=== PATIENT | male | born 1960 | race Caucasian/White ===

== ENCOUNTER 2018-02-12 23:44 | Inpatient (IN) | payer OTHER ==
[~2018-02-12] VITALS: Ht 188 cm; Wt 64.0 kg
[2018-02-13] VITALS (7 sets, daily range): BP systolic 113–153; BP diastolic 65–94; PULSE 46–86; TEMP 36.6–37.6; O2SAT 94–99; Ht 188 cm; Wt 64.0 kg
--- NOTE | 2018-02-13 00:13 | EMERGENCY ROOM VISIT NOTE ---
History Report prepared by Bettie: Lynette Pena Under the Supervision of: Dr. Jessica Eric D.O. First contact with patient: 23:49 Chief Complaint: WOUND INFECTION Stated Complaint: ALTERED MENTAL STATUS/FINGER INFECTION History of Present Illness The patient is a 57 year old male who presents to the Emergency Room with complaints of a wound infection on the right third proximal finger beginning yesterday. He notes he got a splinter stuck in his finger and tried digging it out with a knife. When asked, the patient is unsure or why he is at the ED but knows the month and year. He is unsure who called EMS. He denies any abdominal pain, diarrhea, or urinary symptoms. The patient reports the last time he went to work was Tuesday. He states he drank 4 beers tonight, has COPD, and is a current smoker. Source of History: patient Onset: yesterday Position: finger(s) (right third proximal finger) Quality: other (wound infection) Timing: other (after getting a splinter stuck in finger) Associated Symptoms: No abdominal pain, No diarrhea, No urinary symptoms Review of Systems See HPI for pertinent positives & negatives. A total of 10 systems reviewed and were otherwise negative. Past Medical & Surgical Medical Problems: (1) Alcohol Abuse-Unspec (2) Depressive Disorder Nec (3) Seizure (4) Tobacco Use Disorder Family History Cancer Seizures Social History Smoking Status: Current Every Day Smoker Alcohol Use: occasionally Marital Status: Housing Status: lives with family Occupation Status: employed Current/Historical Medications No Active Prescriptions or Reported Meds Allergies Coded Allergies: Blueberry (Verified Allergy, Severe, HIVES, 02/13/18) Penicillins (Verified Allergy, Severe, ANAPHYLAXIS, 02/13/18) Aspirin (Verified Allergy, Unknown, ?, 02/13/18) Physical Exam Vital Signs Date Time Temp Pulse Resp B/P (MAP) Pulse Ox O2 Delivery O2 Flow Rate FiO2 02/13/18 00:21 Room Air 02/12/18 23:54 63 02/12/18 23:51 36.9 59 23 151/86 95 Room Air Physical Exam General: Smells of alcohol and seems confused. HEENT: Head - normocephalic and atraumatic Pupils are equal, round, and reactive to light. Extraocular eye muscles are intact, and sclera are anicteric. Nose - moist nasal mucosa without discharge. Mouth - moist buccal mucosa. Oropharynx is nonerythematous and there is no tonsillar exudate or edema noted. Neck: Supple; no JVD, nuchal rigidity, cervical lymphadenopathy. Heart: Regular rate and rhythm. There is a normal S1 and S2 with no murmurs, clicks, or gallops appreciated. Lungs: Clear to auscultation bilaterally with no wheezes, rales, or rhonchi. Abdomen: Soft, completely nontender, nondistended, with good bowel sounds. There are no palpable pulsatile masses or hepatosplenomegaly. There is no guarding, rigidity, or rebound noted. Extremities: No evidence of cyanosis, clubbing, or edema. There are easily palpable peripheral pulses. Skin: warm and dry with good turgor and no rashes. On the right third proximal finger there is significant edema, erythema, and pus coming out of the wound. Multiple tattoos over entire body. Neuro: The patient is moving all 4 extremities. He will follow commands. He is alert and able to answer some questions. Medical Decision & Procedures ER Provider Diagnostic Interpretation: Radiology results as stated below per my review and the radiologist's interpretation: RIGHT HAND XRAY Edema noted over the third proximal metatarsal. No obvious foreign body identified. PORTABLE CHEST XRAY Unremarkable. No acute pulmonary pathology. CT HEAD No acute hemorrahe, hydrocephalus, or mass effect. Large volume cerumen eiwthin the external auditory canals bilaterally, blocking the lumen Radiologist: Peace Villalobos MD Laboratory Results 02/13/18 00:00 Red Blood Count 4.98, Mean Corpuscular Volume 87.8, Mean Corpuscular Hemoglobin 30.1, Mean Corpuscular Hemoglobin Concent 34.3, Mean Platelet Volume 10.2, Neutrophils (%) (Auto) 48.8, Lymphocytes (%) (Auto) 41.4, Monocytes (%) (Auto) 6.5, Eosinophils (%) (Auto) 2.8, Basophils (%) (Auto) 0.4, Neutrophils # (Auto) 3.98, Lymphocytes # (Auto) 3.38, Monocytes # (Auto) 0.53, Eosinophils # (Auto) 0.23, Basophils # (Auto) 0.03 02/13/18 00:00 Test 02/13/18 00:00 02/13/18 00:15 02/13/18 00:25 02/13/18 00:28 White Blood Count 8.16 K/uL (4.8-10.8) Red Blood Count 4.98 M/uL (4.7-6.1) Hemoglobin 15.0 g/dL (14.0-18.0) Hematocrit 43.7 % (42-52) Mean Corpuscular Volume 87.8 fL (80-100) Mean Corpuscular Hemoglobin 30.1 pg (25-34) Mean Corpuscular Hemoglobin Concent 34.3 g/dl (32-36) Platelet Count 190 K/uL (130-400) Mean Platelet Volume 10.2 fL (7.4-10.4) Neutrophils (%) (Auto) 48.8 % Lymphocytes (%) (Auto) 41.4 % Monocytes (%) (Auto) 6.5 % Eosinophils (%) (Auto) 2.8 % Basophils (%) (Auto) 0.4 % Neutrophils # (Auto) 3.98 K/uL (1.4-6.5) Lymphocytes # (Auto) 3.38 K/uL (1.2-3.4) Monocytes # (Auto) 0.53 K/uL (0.11-0.59) Eosinophils # (Auto) 0.23 K/uL (0-0.5) Basophils # (Auto) 0.03 K/uL (0-0.2) RDW Standard Deviation 47.5 fL (36.4-46.3) RDW Coefficient of Variation 14.8 % (11.5-14.5) Immature Granulocyte % (Auto) 0.1 % Immature Granulocyte # (Auto) 0.01 K/uL (0.00-0.02) Prothrombin Time 10.1 SECONDS (9.0-12.0) Prothromb Time International Ratio 1.0 (0.9-1.1) Activated Partial Thromboplast Time 27.5 SECONDS (21.0-31.0) Partial Thromboplastin Ratio 1.1 Anion Gap 8.0 mmol/L (3-11) Est Creatinine Clear Calc Drug Dose 86.9 ml/min Estimated GFR () 116.6 Estimated GFR (Non- 100.6 BUN/Creatinine Ratio 11.3 (10-20) Calcium Level 8.6 mg/dl (8.5-10.1) Total Bilirubin 0.2 mg/dl (0.2-1) Aspartate Amino Transf (AST/SGOT) 21 U/L (15-37) Alanine Aminotransferase (ALT/SGPT) 18 U/L (12-78) Alkaline Phosphatase 60 U/L (45-117) Total Protein 7.3 gm/dl (6.4-8.2) Albumin 3.6 gm/dl (3.4-5.0) Globulin 3.7 gm/dl (2.5-4.0) Albumin/Globulin Ratio 1.0 (0.9-2) Urine Color YELLOW Urine Appearance CLEAR (CLEAR) Urine pH 6.0 (4.5-7.5) Urine Specific [place] 1.007 (1.000-1.030) Urine Protein NEG (NEG) Urine Glucose (UA) NEG (NEG) Urine Ketones NEG (NEG) Urine Occult Blood 1+ (NEG) Urine Nitrite NEG (NEG) Urine Bilirubin NEG (NEG) Urine Urobilinogen NEG (NEG) Urine Leukocyte Esterase NEG (NEG) Urine WBC (Auto) 0 /hpf (0-5) Urine RBC (Auto) 0-4 /hpf (0-4) Urine Hyaline Casts (Auto) 0 /lpf (0-5) Urine Epithelial Cells (Auto) 0-5 /lpf (0-5) Urine Bacteria (Auto) NEG (NEG) Ethyl Alcohol mg/dL 103.0 mg/dl (0-3) Bedside Lactic Acid Venous 1.21 mmol/L (0.90-1.70) Laboratory results per my review. Medications Administered Medications (Trade) Dose Ordered Sig/Lindsay Route Start Time Stop Time Status Last Admin Dose Admin Daptomycin 400 mg/ Sodium Chloride 58 ml @ 100 mls/hr NOW STAT IV 02/13/18 00:22 02/13/18 00:56 DC 02/13/18 01:03 100 MLS/HR Procedure Daptomycin 400 mg/Sodium Chloride 58 ml @ 100 mls/hr IV ECG Per My Interpretation Indication: other (sepsis) Rate (beats per minute): 63 Rhythm: normal sinus Findings: no acute ischemic change, no ectopy, other (no ST segment changes) ED Course 4719: Past medical records reviewed. The patient was evaluated in room B9. A complete history and physical exam was performed. Nursing notes and previous electronic medical records were reviewed. IV lock was established and labs were drawn as above. A septic protocol was performed. The patient went for a plain film of the infected hand. 0022: Ordered Daptomycin 400 mg/Sodium Chloride 58 ml @ 100 mls/hr IV 0146: Discussed the patient's case with Abrahan Quiles. The patient will be evaluated for further management. 0212: The patient's family arrived in the emergency department. I spoke to the patient's at this time. She reports the patient had 4 seizures today before arriving at the ED and he was postictal afterwards. Medical Decision The patient is a 57 year old male who presents to the Emergency Room with complaints of a wound infection on the right third proximal finger beginning yesterday. Differential diagnosis includes sepsis, infected foreign body of the hand, alcohol intoxication, as well as others were entertained. Lab results show Alcohol 103 Urinalysis had 1+ blood Lactic acid 1.2 Normal renal function and glucose Normal coags and LFTs No leukocytosis Stable H and H This is a 57-year-old male patient presents to the emergency department complaining of hand pain and seemed to have an altered mental status. The patient has an obvious wound infection but no significant signs of sepsis. He is afebrile, white blood cell count is normal, and lactic acid was negative. The patient's mental status was altered upon his arrival here in the emergency department. According to the , the patient has a history of seizures and used to take Lamictal. She describes him having approximately 4 seizures before EMS arrived at the house. The patient was unable to fully bend his fingers on the infected hand. I am concerned about a more significant wound infection and retained foreign body. [facility] and [facility] will evaluate for further care and consult orthopedics. Medication Reconcilliation Current Medication List: was personally reviewed by me Consults Time Called: 139 Consulting Physician: Abrahan Quiles Returned Call: [phone] Discussed the patient's case with Abrahan Quiles. The patient will be evaluated for further management. Impression Primary Impression: Seizure Additional Impression: Puncture wound of right hand with infection Scribe Attestation The scribe's documentation has been prepared under my direction and personally reviewed by me in its entirety. I confirm that the note above accurately reflects all work, treatment, procedures, and medical decision making performed by me. Departure Information Dispostion Being Evaluated By Hospitalist (Dr. Rodriguez, [facility] Hospitalist) Prescriptions No Active Prescriptions or Reported Meds Referrals Chay Foster M.D. (PCP) Patient Instructions My [facility] Problem Qualifiers Additional Impression: Puncture wound of right hand with infection Encounter type: initial encounter Qualified Codes: S61.431A - Puncture wound without foreign body of right hand, initial encounter; L08.9 - Local infection of the skin and subcutaneous tissue, unspecified
[2018-02-13 00:18] LABS: BASO % 0.4 %; BASO ABS # 0.03 K/uL (0-0.2); EOS % 2.8 %; EOS ABS # 0.23 K/uL (0-0.5); HEMATOCRIT 43.7 % (42-52); IG# 0.01 K/uL (0.00-0.02); LYMPH % 41.4 %; LYMPH ABS # 3.38 K/uL (1.2-3.4); MEAN CELL VOLUME 87.8 fL (80-100); MEAN CORPUSCULAR HEMOGLOBIN 30.1 pg (25-34); MEAN CORPUSCULAR HGB CONC 34.3 g/dl (32-36); MEAN PLATELET VOLUME 10.2 fL (7.4-10.4); MONO % 6.5 %; MONO ABS # 0.53 K/uL (0.11-0.59); NEUT % 48.8 %; NEUT ABS # 3.98 K/uL (1.4-6.5); PLATELET COUNT 190 K/uL (130-400); RED CELL DISTRIBUTION WIDTH CV 14.8 % (11.5-14.5); RED CELL DISTRIBUTION WIDTH SD 47.5 fL (36.4-46.3); WHITE BLOOD COUNT 8.16 K/uL (4.8-10.8)
[2018-02-13] MEDS ORDERED: DAPTOmycin IV 400 MG in SODIUM CHLORIDE 0.9% 50ML 50 ML IV STA (00:22)
[2018-02-13 00:29] LABS: ALBUMIN 3.6 gm/dl (3.4-5.0); CALCIUM 8.6 mg/dl (8.5-10.1); CREATININE 0.8 mg/dl (0.60-1.40); POTASSIUM 3.5 mmol/L (3.5-5.1); TOTAL PROTEIN 7.3 gm/dl (6.4-8.2)
[2018-02-13 00:31] LABS: PTT PATIENT 27.5 SECONDS (21.0-31.0)
[2018-02-13] MEDS ORDERED: MULTI-VITAMIN INFUSION INJ 10 ML, THIAMINE HCL INJ 100 MG, FoLIC ACID INJ 1 MG in SODIU... IV ONE (02:09)
[2018-02-13] MEDS ORDERED: ALBUTEROL HFA 8 GM INHALER INH PRN (02:15)
[2018-02-13] MEDS ORDERED: ACETAMINOPHEN 325 MG TAB PO PRN (02:15)
[2018-02-13] MEDS ORDERED: VANCOMYCIN CONSULT ACTIVE PRN ×2 (02:15→16:45)
[2018-02-13] MEDS ORDERED: NITROGLYCERIN 0.4 MG SL PER TAB CHARGE SL PRN (02:15)
[2018-02-13] MEDS ORDERED: ALUMINUM/MAGNESIUM/SIMETH (MAALOX MAX) 30 ML UDC PO PRN (02:15)
[2018-02-13] MEDS ORDERED: ONDANSETRON INJ 2 MG/ML 2 ML VIAL IV PRN ×2 (02:15→16:30)
[2018-02-13] MEDS ORDERED: PIPERACILL/TAZOBAC CONSULT ACTIVE PRN (02:15)
[2018-02-13] MEDS ORDERED: LORAZEPAM 1 MG TAB PO PRN (02:15)
[2018-02-13] MEDS ORDERED: ALBUT/IPRATROP 3MG/0.5MG NEB 3 ML VIAL INH PRN (02:15)
[2018-02-13] MEDS ORDERED: POLYETHYLENE (MIRALAX) 17 GM PACK PO PRN (02:15)
[2018-02-13] MEDS ORDERED: LORAZEPAM 2 MG/ML 1 ML VIAL IV PRN ×3 (02:15→08:15)
[2018-02-13] MEDS: THIAMINE HCL INJ 100 MG in SYRINGE 9 ML IV SCH (03:42)
--- NOTE | 2018-02-13 03:45 | HISTORY & PHYSICAL EXAMINATION ---
DATE OF ADMISSION: 02/13/2018 CHIEF COMPLAINT: Right third finger infection. HISTORY OF PRESENT ILLNESS: This is a 57-year-old male with past medical history significant for alcoholism, tobacco abuse, history of questionable seizures and was on Lamictal in the past but no longer taking it for several years now, history of COPD, comes because of right third finger infection. The patient says he was cutting the tree about a week ago and he has got thorn into the finger and he tried to take it with his knife, but finger became swollen and painful. He went to [facility] yesterday but it was taking long time and he just singed out AMA . He says he drinks 1 six-pack beer every weekend, but alcohol level was 100 today when asked about it he said he drank about 4 beers today. Smokes 1 pack of cigarettes every day since age 14. Denies any headache. Denies any fever, chills, no headaches, no blurred vision, no dizziness, no earache, no runny nose, no sore throat, no cough, no difficulty swallowing. No chest pain, no shortness of breath, no fever, no nausea, no vomiting, no abdominal pain. Normal bowel and bladder movements. No blood in the urine, no bloody stools. No recent weight gain or weight loss. No skin rash, no lower extremity edema. But the states that he was confused today, he could not recognize his cat, could not know the time and somewhat disoriented and called ambulance. Before the ambulance came, he had several episodes of shaking his body and legs and staring which lasted for few seconds, currently the patient is alert and oriented and is comfortable and hemodynamically stable. ALLERGIES: ASPIRIN AND PENICILLIN. PAST MEDICAL HISTORY: As mentioned above. PAST SURGICAL HISTORY: Has right knee surgery. MEDICATIONS: Patient is not take any medications. FAMILY HISTORY: No family history is significant. REVIEW OF SYSTEMS: Rest of the review of symptoms negative. PHYSICAL EXAMINATION: GENERAL: The patient is of moderate build, not in distress. VITAL SIGNS: Temperature 36.9, pulse 63, respiratory rate 16 blood pressure 146/93, temperature 95% room air. HEENT: No pallor, no icterus. Pupils equal, round, reactive. NECK: No JVD or neck masses, no carotid bruits. CARDIOVASCULAR: S1, S2, regular rate and rhythm, no murmur, no gallop. RESPIRATORY SYSTEM: Normal AP diameter No accessory muscle use No wheezing, no crackles. ABDOMEN: Soft, bowel sounds present. Nontender. No distention. CENTRAL NERVOUS SYSTEM: Cranial II through XII intact. Nonfocal extremities. EXTREMITIES: Right middle finger is erythematous, swollen. No drainage is seen. No foul smelling LABS: WBC 8.1, hemoglobin 15, hematocrit 43.7, platelets 190. Sodium 142, potassium 3.6, chloride 107, bicarbonate 27, BUN 9, creatinine 0.8, serum glucose 75, calcium 8.6, total bilirubin 0.2, AST 21, ALT 18, alkaline phosphatase of 60. PT 10.1, INR 1, APTT 27.5. Urinalysis positive for occult blood alcohol 103. CT of the head unofficial report unremarkable. Chest x-ray, no acute disease in the chest. Right hand x-ray no obvious foreign body identified. Await for official report. ASSESSMENT AND PLAN: This is a 57-year-old male who presents with right middle finger infection. 1. Right middle finger infection .Had thron in his finger a week ago and he tried to take it out with knife No obvious foreign body in the x-ray unofficial report. We will place him IV vancomycin. Consult orthopedics for possible incision and drainage. We will monitor in the hospital. 2. Confusion, encephalopathy, questionable seizures. history of seizures in the past, was on Lamictal at the time and had EEG done a couple of times and it was negative . Thought to be from alcohol withdrawal but neurology advised to be on Lamictal. Patient says he stopped Lamictal several years ago. .We will get an EEG . IV Ativan p.r.n. for seizures and consult neurology in morning.Patient confusion also could be from alcoholism 3. Alcoholism. will place him on alcohol withdrawal protocol with gabapentin and Ativan as needed. Banana bag. Patient says he does not get withdrawal if he don't drink. 4. Tobacco abuse. We will need counseling. Nebs as needed. 5. Deep venous thrombosis prophylaxis, sequential compression devices for now. DISPOSITION: Admit to tele floor. Expect to discharge home and follow with family doctor. Level 1 full code. MTDD
[2018-02-13] MEDS ORDERED: VANCOMYCIN IV 1,500 MG in SODIUM CHLORIDE 0.9% 500ML 500 ML IV SCH (04:00)
[2018-02-13] MEDS ORDERED: GABAPENTIN 600 MG TAB PO SCH (04:00)
[2018-02-13] MEDS: NICOTINE 21 MG/24 HR TDSY TD SCH ×2 (04:39→08:23)
[2018-02-13] MEDS ORDERED: PNEUMOCOCCAL POLYSACCHARIDES 25 MCG/0.5 ML VIAL/SYR IM. ONE (04:45)
[2018-02-13] MEDS ORDERED: PNEUMOCOCCAL ADMINISTRATION CHARGE ONE (04:45)
--- NOTE | 2018-02-13 06:37 | DIAGNOSTIC IMAGING REPORT ---
HEAD WITHOUT CONTRAST (CT) CLINICAL HISTORY: 57 years-old Male with altered ms. Acutely altered mental status TECHNIQUE: Multiple axial CT images of the head were obtained without contrast. A dose lowering technique was utilized adhering to the principles of ALARA. CT DOSE: 614.27 mGy.cm COMPARISON: CT head 07/20/2009. FINDINGS: No acute intracranial hemorrhage, midline shift, intracranial mass, hydrocephalus, territorial ischemia or abnormal extra-axial collection. Senescent calcifications of the lentiform nuclei. The calvarium is intact. The paranasal sinuses, mastoid air cells, and middle ear cavities are clear. Cerumen of the bilateral external auditory canals. Rightward bowing and spurring of the nasal septum. Soft tissues and orbits are unremarkable. IMPRESSION: No acute intracranial abnormality. The above report was generated using voice recognition software. It may contain grammatical, syntax or spelling errors. Electronically signed by: Ventura Palma M.D. 02/13/2018 6:35 AM Dictated Date/Time: 02/13/2018 6:33 AM
--- NOTE | 2018-02-13 06:42 | DIAGNOSTIC IMAGING REPORT ---
R HAND MIN 3 VIEWS ROUTINE HISTORY: 57 years-old Male eval for foreign body in 3rd digit acute right hand pain with concern for foreign body COMPARISON: None available TECHNIQUE: 3 views of the right hand FINDINGS: There is a punctate radiopaque foreign body noted within the ulnar dorsal soft tissues of the third digit at the level of the mid proximal phalanx. Moderate associated soft tissue swelling. There is no acute fracture or dislocation. Mild first carpometacarpal osteoarthritis. Mild degenerative changes are seen within the interphalangeal joints. IMPRESSION: 1. No acute fracture. 2. Punctate foreign body noted within the ulnar dorsal soft tissues of the third digit at the level of the mid proximal phalanx. The above report was generated using voice recognition software. It may contain grammatical, syntax or spelling errors. Electronically signed by: Ventura Palma M.D. 02/13/2018 6:40 AM Dictated Date/Time: 02/13/2018 6:39 AM
--- NOTE | 2018-02-13 06:46 | DIAGNOSTIC IMAGING REPORT ---
CHEST ONE VIEW PORTABLE HISTORY: 57 years-old Male Sepsis acute sepsis COMPARISON: None available TECHNIQUE: Portable AP view of the chest FINDINGS: Cardiomediastinal and hilar silhouettes are within normal limits. Mild biapical pleural parenchymal scarring. Lungs are mildly hyperinflated. No pneumothorax, pleural effusion, focal airspace consolidation or overt pulmonary edema. Bones of the chest appear grossly intact. IMPRESSION: No acute process. The above report was generated using voice recognition software. It may contain grammatical, syntax or spelling errors. Electronically signed by: Ventura Palma M.D. 02/13/2018 6:44 AM Dictated Date/Time: 02/13/2018 6:43 AM
[2018-02-13] MEDS: SODIUM CHLORIDE 0.9% 1000ML 1,000 ML IV SCH ×2 (08:23→21:26)
[2018-02-13] MEDS: CEROVITE ADV FORMULA TAB PO SCH (08:23)
--- NOTE | 2018-02-13 08:44 | Progress Note ---
Medicine Progress Note Date & Time of Visit: Feb 13, 2018 at 08:35. Subjective seen resting in bed, comfortable states he feels improved compared to yesterday has some pain on the left finger- able to move other fingers, wrist, no arm pain denies tremors, anxiety, palpitations, hallucinations no seizure recurrence noted denies other symptoms Objective Last 8 Hrs Date Time Temp Pulse Resp B/P (MAP) Pulse Ox O2 Delivery O2 Flow Rate FiO2 02/13/18 07:43 36.9 86 20 139/76 (97) 99 02/13/18 04:30 Room Air 02/13/18 03:37 36.7 60 20 143/92 97 Room Air 02/13/18 02:51 36.7 68 18 146/93 97 02/13/18 02:20 36.7 68 18 146/93 97 Physical Exam: General- oriented x3, not in distress, speaks in sentences with no effort Head- atraumatic Eyes- PERRL, EOMI, anicteric ENT- oropharynx clear Neck- supple, no JVD, no adenopathy, no thyromegaly; carotids +2/2, no bruits appreciated Lungs- clear to auscultation bilaterally Heart- regular rhythm; no murmur,normal rate Abdomen- normal bowel sounds, soft, nontender Extremities- right middle finger: swelling and tenderness on the proximal phalanx region, no other erythema, swelling, tenderness on the right hand/arm poor ROM of R middle finger , otherwise full on the right hand no pretibial edema, no calf tenderness; peripheral pulses intact Neuro- alert, oriented x 3; no gross focal deficits Skin- warm & dry Laboratory Results: Last 24 Hours Test 02/13/18 00:00 02/13/18 00:15 02/13/18 00:25 02/13/18 00:28 White Blood Count 8.16 K/uL Red Blood Count 4.98 M/uL Hemoglobin 15.0 g/dL Hematocrit 43.7 % Mean Corpuscular Volume 87.8 fL Mean Corpuscular Hemoglobin 30.1 pg Mean Corpuscular Hemoglobin Concent 34.3 g/dl Platelet Count 190 K/uL Mean Platelet Volume 10.2 fL Neutrophils (%) (Auto) 48.8 % Lymphocytes (%) (Auto) 41.4 % Monocytes (%) (Auto) 6.5 % Eosinophils (%) (Auto) 2.8 % Basophils (%) (Auto) 0.4 % Neutrophils # (Auto) 3.98 K/uL Lymphocytes # (Auto) 3.38 K/uL Monocytes # (Auto) 0.53 K/uL Eosinophils # (Auto) 0.23 K/uL Basophils # (Auto) 0.03 K/uL RDW Standard Deviation 47.5 fL RDW Coefficient of Variation 14.8 % Immature Granulocyte % (Auto) 0.1 % Immature Granulocyte # (Auto) 0.01 K/uL Prothrombin Time 10.1 SECONDS Prothromb Time International Ratio 1.0 Activated Partial Thromboplast Time 27.5 SECONDS Partial Thromboplastin Ratio 1.1 Sodium Level 142 mmol/L Potassium Level 3.5 mmol/L Chloride Level 107 mmol/L Carbon Dioxide Level 27 mmol/L Anion Gap 8.0 mmol/L Blood Urea Nitrogen 9 mg/dl Creatinine 0.80 mg/dl Est Creatinine Clear Calc Drug Dose 86.9 ml/min Estimated GFR () 116.6 Estimated GFR (Non- 100.6 BUN/Creatinine Ratio 11.3 Random Glucose 75 mg/dl Calcium Level 8.6 mg/dl Total Bilirubin 0.2 mg/dl Aspartate Amino Transf (AST/SGOT) 21 U/L Alanine Aminotransferase (ALT/SGPT) 18 U/L Alkaline Phosphatase 60 U/L Total Protein 7.3 gm/dl Albumin 3.6 gm/dl Globulin 3.7 gm/dl Albumin/Globulin Ratio 1.0 Urine Color YELLOW Urine Appearance CLEAR Urine pH 6.0 Urine Specific [place] 1.007 Urine Protein NEG Urine Glucose (UA) NEG Urine Ketones NEG Urine Occult Blood 1+ Urine Nitrite NEG Urine Bilirubin NEG Urine Urobilinogen NEG Urine Leukocyte Esterase NEG Urine WBC (Auto) 0 /hpf Urine RBC (Auto) 0-4 /hpf Urine Hyaline Casts (Auto) 0 /lpf Urine Epithelial Cells (Auto) 0-5 /lpf Urine Bacteria (Auto) NEG Ethyl Alcohol mg/dL 103.0 mg/dl Bedside Lactic Acid Venous 1.21 mmol/L Test 02/13/18 05:53 Date/Time Source Procedure Growth Status 02/13/18 00:25 Blood Blood Culture Pending Received 02/12/18 23:58 Blood Blood Culture Pending Received Assessment & Plan ASSESSMENT AND PLAN: This is a 57-year-old male who presents with right middle finger infection. 1. Right middle finger Cellulitis, Foreign Body Had thorn in his finger a week ago and he tried to take it out with knife Hand xray: 1. No acute fracture. 2. Punctate foreign body noted within the ulnar dorsal soft tissues of the third digit at the level of the mid proximal phalanx. blood cultures pending continue Vanco IV Ortho consulted 2. Confusion, encephalopathy, questionable seizures. history of seizures in the past, was on Lamictal at the time and had EEG done a couple of times and it was negative . Thought to be from alcohol withdrawal but neurology advised to be on Lamictal. Patient says he stopped Lamictal several years ago. -- alert oriented x 3 today -- EEG ordered Neuro consulted 3. Alcoholism. will place him on alcohol withdrawal protocol with gabapentin and Ativan as needed. Banana bag. - no signs of overt withdrawal today monitor closely 4. Tobacco abuse. - needs counselling 5. Deep venous thrombosis prophylaxis, sequential compression devices for now. - will need Lovenox/Heparin SC after I&D DISPOSITION: anticipate d/c home when medically stable Current Inpatient Medications: Current Inpatient Medications Medications (Trade) Dose Ordered Sig/Lindsay Route Start Time Stop Time Status Last Admin Dose Admin Acetaminophen (Tylenol Tab) 650 mg Q4H PRN PO 02/13/18 02:15 03/15/18 02:14 Al Hydrox/Mg Hydrox/Simethicone (Maalox Max Susp) 15 ml Q4H PRN PO 02/13/18 02:15 03/15/18 02:14 Ondansetron HCl (Zofran Inj) 4 mg Q6H PRN IV 02/13/18 02:15 03/15/18 02:14 Nitroglycerin (Nitrostat Tab) 0.4 mg UD PRN SL 02/13/18 02:15 03/15/18 02:14 Polyethylene (Miralax Powder Packet) 17 gm DAILY PRN PO 02/13/18 02:15 03/15/18 02:14 Vancomycin HCl (Consult) 1 ea UD PRN N/A 02/13/18 02:15 03/15/18 02:14 Sodium Chloride 1,000 ml @ 75 mls/hr [id number] IV 02/13/18 05:00 03/15/18 04:59 02/13/18 08:23 75 MLS/HR Thiamine HCl 100 mg/Syringe 10 ml @ 2 mls/min Q24H IV 02/13/18 03:00 03/15/18 02:59 02/13/18 03:42 2 MLS/MIN Lorazepam (Ativan Tab) PRN Dosing -Active Protocol UD PRN PO 02/13/18 02:15 03/15/18 02:14 Gabapentin (Neurontin Tab) 1,200 mg TODAY@0400 PO 02/13/18 04:00 03/15/18 03:59 02/13/18 03:43 1,200 MG Multivitamins/ Minerals (Multivitamin W/ Minerals Tab) 1 tab QAM PO 02/13/18 09:00 03/15/18 08:59 02/13/18 08:23 1 TAB Albuterol/ Ipratropium (Duoneb) 3 ml Q4R PRN INH 02/13/18 02:15 03/15/18 02:14 Albuterol (Ventolin Hfa Inhaler) 2 puffs Q4 PRN INH 02/13/18 02:15 03/15/18 02:14 Lorazepam (Ativan Inj) 2 mg Q2HWA PRN IV 02/13/18 02:15 03/15/18 02:14 Gabapentin (Neurontin Tab) 600 mg Q6H PO 02/13/18 10:00 02/13/18 16:01 Gabapentin (Neurontin Tab) 600 mg Q8H PO 02/14/18 00:00 02/14/18 16:01 Gabapentin (Neurontin Tab) 600 mg Q12H PO 02/15/18 04:00 02/15/18 16:01 Gabapentin (Neurontin Tab) 600 mg Q24H PO 02/16/18 16:00 02/16/18 16:01 Nicotine (Nicoderm Cq 21MG Patch) 1 patch QAM TD 02/13/18 03:45 03/15/18 03:44 02/13/18 08:23 1 PATCH Miscellaneous (Remove Nicoderm Patch) 1 ea HS N/A 02/13/18 21:00 03/15/18 20:59 Lorazepam (Ativan Inj) 1 mg ONE PRN IV 02/13/18 08:15 UNV Lorazepam (Ativan Inj) 0.5 mg Q4H PRN IV 02/13/18 08:15 03/15/18 08:14 UNV
[2018-02-13] MEDS ORDERED: VANCOMYCIN IV 1,000 MG in SODIUM CHLORIDE 0.9% 250ML 250 ML IV SCH (09:00)
--- NOTE | 2018-02-13 10:14 | Pharmacy Progress Note ---
Pharmacy Abx Initial Consult Date of Service Feb 13, 2018. Pharmacy Dosing Scope Date of Consult: 02/13/18 Consultation requested by: Dr. Rodriguez Pharmacy is consulted to initiate vancomycin IV dosing therapy, order appropriate labs and adjust drug dose/frequency. Subjective The patient is a 57 year old male admitted on Feb 13, 2018 at 02:06. Objective Height (Feet): 6 Height (Inches): 2.00 Weight (Kilograms): 63.000 Vital Signs (Past 12Hrs) Vital Signs Past 12 Hours Date Time Temp Pulse Resp B/P (MAP) Pulse Ox O2 Delivery O2 Flow Rate FiO2 02/13/18 07:43 36.9 86 20 139/76 (97) 99 02/13/18 04:30 Room Air 02/13/18 03:37 36.7 60 20 143/92 97 Room Air 02/13/18 02:51 36.7 68 18 146/93 97 02/13/18 02:20 36.7 68 18 146/93 97 02/13/18 00:21 Room Air 02/12/18 23:54 63 02/12/18 23:51 36.9 59 23 151/86 95 Room Air Lab Results (24Hrs) Laboratory Tests (24 Hours) Test 02/13/18 00:00 White Blood Count 8.16 K/uL (4.8-10.8) Red Blood Count 4.98 M/uL (4.7-6.1) Hemoglobin 15.0 g/dL (14.0-18.0) Hematocrit 43.7 % (42-52) Mean Corpuscular Volume 87.8 fL (80-100) Mean Corpuscular Hemoglobin 30.1 pg (25-34) Mean Corpuscular Hemoglobin Concent 34.3 g/dl (32-36) Platelet Count 190 K/uL (130-400) Mean Platelet Volume 10.2 fL (7.4-10.4) Neutrophils (%) (Auto) 48.8 % Lymphocytes (%) (Auto) 41.4 % Monocytes (%) (Auto) 6.5 % Eosinophils (%) (Auto) 2.8 % Basophils (%) (Auto) 0.4 % Neutrophils # (Auto) 3.98 K/uL (1.4-6.5) Lymphocytes # (Auto) 3.38 K/uL (1.2-3.4) Monocytes # (Auto) 0.53 K/uL (0.11-0.59) Eosinophils # (Auto) 0.23 K/uL (0-0.5) Basophils # (Auto) 0.03 K/uL (0-0.2) Micro Results Date/Time Source Procedure Growth Status 02/13/18 00:25 Blood Blood Culture Pending Received 02/12/18 23:58 Blood Blood Culture Pending Received Risk Factors for Resistance Assessment & Plan Assessment * 57 year old male who tried to remove thorn from finger with knife approximately one week ago * X-ray hand: Punctate foreign body noted within the ulnar dorsal soft tissues of the third digit at the level of the mid proximal phalanx. * Blood cultures pending Plan Vancomycin IV * Loading dose: 1500 mg (22 mg/kg) at 0400 on 02/13 * Estimated PK parameters: Vd 0.7 L/kg, ke 0.07 hr-1, t1/2 10hr * Maintenance dose: 1000 mg IV (15 mg/kg) every 12 hours * Goal trough level: 10 to 20 mcg/mL * Trough level ordered for 02/14/18 at 1530 Pharmacy will continue to follow and will adjust dose/frequency as necessary. Thank you.
[2018-02-13] MEDS: GABAPENTIN 600MG Q6H DOSE PO SCH ×2 (10:23→18:10)
--- NOTE | 2018-02-13 10:25 | Orthopedic Consultation ---
Orthopedic Consultation Date of Consultation: Feb 13, 2018. Attending Physician: Papito George MD Reason for Consultation: Right middle finger pain, swelling History of Present Illness Patient is a 57 year old male who is admitted for right middle finger swelling/ cellulitis. Patient states he got a thorn in his finger several weeks ago. He wasn't having any symptoms up until a few days ago. He noticed some increased redness and swelling. Patient attempted to remove the thorn himself with his knife. Patient was admitted yesterday after having confusion and fevers. Patient has distant history of seizure disorder and has been off medication for several years. There was a questionable episode at home yesterday prior to admission so he is currently on telemetry for observation. He is currently receiving Vancomycin. He had some jello earlier this morning for breakfast. Past Medical/Surgical History Medical Problems: (1) Altered mental status Status: Acute (2) Puncture wound of right hand with infection Status: Acute (3) Wound infection Status: Acute Family History Cancer Seizures Social History Smoking Status: Current Every Day Smoker Alcohol Use: heavy Marital Status: Housing Status: lives with family Occupation Status: employed Allergies Coded Allergies: Blueberry (Verified Allergy, Severe, HIVES, 02/13/18) Penicillins (Verified Allergy, Severe, ANAPHYLAXIS, 02/13/18) Aspirin (Verified Allergy, Unknown, ?, 02/13/18) Home Medications No Active Prescriptions or Reported Meds Current Inpatient Medications Current Inpatient Medications Medications (Trade) Dose Ordered Sig/Lindsay Route Start Time Stop Time Status Last Admin Dose Admin Acetaminophen (Tylenol Tab) 650 mg Q4H PRN PO 02/13/18 02:15 03/15/18 02:14 Al Hydrox/Mg Hydrox/Simethicone (Maalox Max Susp) 15 ml Q4H PRN PO 02/13/18 02:15 03/15/18 02:14 Ondansetron HCl (Zofran Inj) 4 mg Q6H PRN IV 02/13/18 02:15 03/15/18 02:14 Nitroglycerin (Nitrostat Tab) 0.4 mg UD PRN SL 02/13/18 02:15 03/15/18 02:14 Polyethylene (Miralax Powder Packet) 17 gm DAILY PRN PO 02/13/18 02:15 03/15/18 02:14 Vancomycin HCl (Consult) 1 ea UD PRN N/A 02/13/18 02:15 03/15/18 02:14 Sodium Chloride 1,000 ml @ 75 mls/hr [id number] IV 02/13/18 05:00 03/15/18 04:59 02/13/18 08:23 75 MLS/HR Thiamine HCl 100 mg/Syringe 10 ml @ 2 mls/min Q24H IV 02/13/18 03:00 03/15/18 02:59 02/13/18 03:42 2 MLS/MIN Lorazepam (Ativan Tab) PRN Dosing -Active Protocol UD PRN PO 02/13/18 02:15 03/15/18 02:14 Gabapentin (Neurontin Tab) 1,200 mg TODAY@0400 PO 02/13/18 04:00 03/15/18 03:59 02/13/18 03:43 1,200 MG Multivitamins/ Minerals (Multivitamin W/ Minerals Tab) 1 tab QAM PO 02/13/18 09:00 03/15/18 08:59 02/13/18 08:23 1 TAB Albuterol/ Ipratropium (Duoneb) 3 ml Q4R PRN INH 02/13/18 02:15 03/15/18 02:14 Albuterol (Ventolin Hfa Inhaler) 2 puffs Q4 PRN INH 02/13/18 02:15 03/15/18 02:14 Gabapentin (Neurontin Tab) 600 mg Q6H PO 02/13/18 10:00 02/13/18 16:01 Gabapentin (Neurontin Tab) 600 mg Q8H PO 02/14/18 00:00 02/14/18 16:01 Gabapentin (Neurontin Tab) 600 mg Q12H PO 02/15/18 04:00 02/15/18 16:01 Gabapentin (Neurontin Tab) 600 mg Q24H PO 02/16/18 16:00 02/16/18 16:01 Nicotine (Nicoderm Cq 21MG Patch) 1 patch QAM TD 02/13/18 03:45 03/15/18 03:44 02/13/18 08:23 1 PATCH Miscellaneous (Remove Nicoderm Patch) 1 ea HS N/A 02/13/18 21:00 03/15/18 20:59 Lorazepam (Ativan Inj) 1 mg ONE PRN IV 02/13/18 08:15 Lorazepam (Ativan Inj) 0.5 mg Q4H PRN IV 02/13/18 08:15 03/15/18 08:14 Vancomycin HCl 1000 mg/Sodium Chloride 270 ml @ 125 mls/hr Q12H IV 02/13/18 16:00 02/23/18 15:59 Review of Systems Constitutional: + fever, + chills Integumentary: + new/changing skin lesions, + color change Physical Exam Date Time Temp Pulse Resp B/P (MAP) Pulse Ox O2 Delivery O2 Flow Rate FiO2 02/13/18 07:43 36.9 86 20 139/76 (97) 99 02/13/18 04:30 Room Air 02/13/18 03:37 36.7 60 20 143/92 97 Room Air 02/13/18 02:51 36.7 68 18 146/93 97 02/13/18 02:20 36.7 68 18 146/93 97 02/13/18 00:21 Room Air 02/12/18 23:54 63 02/12/18 23:51 36.9 59 23 151/86 95 Room Air General Appearance: WD/WN, no apparent distress, + thin Head: normocephalic, atraumatic Eyes: normal inspection, PERRL ENT: normal ENT inspection, hearing grossly normal Neck: supple, no adenopathy Respiratory/Chest: chest non-tender, lungs clear, normal breath sounds Cardiovascular: regular rate, rhythm Abdomen/GI: normal bowel sounds, non tender, soft Extremities/Musculoskelatal: normal capillary refill, + swelling, + pertinent finding (swelling and erythema noted at the proximal phalanyx. Obvious abscess formation that is current open and draining purulent material. No pain with extension. Pain noted with flexion. ROM limited due to swelling and pain. 3rd MCP mildly tender at the gaines aspect. No streaking erythema noted. NV intact.) Laboratory Results Last 24 Hours Test 02/13/18 00:00 02/13/18 00:15 02/13/18 00:25 02/13/18 00:28 White Blood Count 8.16 K/uL Red Blood Count 4.98 M/uL Hemoglobin 15.0 g/dL Hematocrit 43.7 % Mean Corpuscular Volume 87.8 fL Mean Corpuscular Hemoglobin 30.1 pg Mean Corpuscular Hemoglobin Concent 34.3 g/dl Platelet Count 190 K/uL Mean Platelet Volume 10.2 fL Neutrophils (%) (Auto) 48.8 % Lymphocytes (%) (Auto) 41.4 % Monocytes (%) (Auto) 6.5 % Eosinophils (%) (Auto) 2.8 % Basophils (%) (Auto) 0.4 % Neutrophils # (Auto) 3.98 K/uL Lymphocytes # (Auto) 3.38 K/uL Monocytes # (Auto) 0.53 K/uL Eosinophils # (Auto) 0.23 K/uL Basophils # (Auto) 0.03 K/uL RDW Standard Deviation 47.5 fL RDW Coefficient of Variation 14.8 % Immature Granulocyte % (Auto) 0.1 % Immature Granulocyte # (Auto) 0.01 K/uL Prothrombin Time 10.1 SECONDS Prothromb Time International Ratio 1.0 Activated Partial Thromboplast Time 27.5 SECONDS Partial Thromboplastin Ratio 1.1 Sodium Level 142 mmol/L Potassium Level 3.5 mmol/L Chloride Level 107 mmol/L Carbon Dioxide Level 27 mmol/L Anion Gap 8.0 mmol/L Blood Urea Nitrogen 9 mg/dl Creatinine 0.80 mg/dl Est Creatinine Clear Calc Drug Dose 86.9 ml/min Estimated GFR () 116.6 Estimated GFR (Non- 100.6 BUN/Creatinine Ratio 11.3 Random Glucose 75 mg/dl Calcium Level 8.6 mg/dl Total Bilirubin 0.2 mg/dl Aspartate Amino Transf (AST/SGOT) 21 U/L Alanine Aminotransferase (ALT/SGPT) 18 U/L Alkaline Phosphatase 60 U/L Total Protein 7.3 gm/dl Albumin 3.6 gm/dl Globulin 3.7 gm/dl Albumin/Globulin Ratio 1.0 Urine Color YELLOW Urine Appearance CLEAR Urine pH 6.0 Urine Specific [place] 1.007 Urine Protein NEG Urine Glucose (UA) NEG Urine Ketones NEG Urine Occult Blood 1+ Urine Nitrite NEG Urine Bilirubin NEG Urine Urobilinogen NEG Urine Leukocyte Esterase NEG Urine WBC (Auto) 0 /hpf Urine RBC (Auto) 0-4 /hpf Urine Hyaline Casts (Auto) 0 /lpf Urine Epithelial Cells (Auto) 0-5 /lpf Urine Bacteria (Auto) NEG Ethyl Alcohol mg/dL 103.0 mg/dl Bedside Lactic Acid Venous 1.21 mmol/L Test 02/13/18 05:53 Vitamin B12 Level 311 pg/mL Folate 8.22 ng/mL Assessment & Plan Right middle finger abscess, foreign body, cellulitis We recommend I&D of the finger. Patient did have some breakfast but will be NPO for surgery later this afternoon. Neurology consulted regarding possible seizure activity. Patient can continue Vancomycin q 12.
--- NOTE | 2018-02-13 12:12 | ELECTROENCEPHALOGRAPH REPORT ---
FOR: Kenny Rodriguez M.D. CLINICAL DIAGNOSIS: History of seizures, now off anticonvulsants. Recent admission for infection in finger and episodic staring spells with some tonic stiffening, question ongoing seizure activity. ELECTROENCEPHALOGRAM DIAGNOSIS: Essentially normal during wakefulness. DESCRIPTION OF TRACING: This EEG was done as a bedside recording with simultaneous video analysis of the patient movement and behavior. Photic stimulation was performed and hyperventilation was not. Drowsiness and light sleep are not clearly recorded. Under these conditions, there is evidence for normal appearing background rhythm in the alpha range of up to 10 Hz of maximum frequency and 30 microvolts of maximum amplitude. This maximum posterior head region is bilaterally symmetrical. Polymorphic mid frequency theta activity is seen over all head regions without clear focal or regional predominance. Anterior head region maximum bilaterally symmetrical low voltage fast activity in the beta range is present. Photic stimulation provoked some modest driving response without a photomyogenic or photoparoxysmal component. At no time during the waking tracing is there evidence for potentially epileptogenic activity in the form of polyspike or spike wave bursts, focal sharp waves or focal spikes. INTERPRETATION: This EEG is essentially normal during wakefulness without evidence for focal or generalized encephalopathy and without evidence for potentially epileptogenic activity.
[2018-02-13] MEDS ORDERED: FENTANYL CITRATE INJ 50 MCG/1 ML 2 ML VIAL ONE (14:30)
[2018-02-13] MEDS ORDERED: PROPOFOL IV EMULSION 10 MG/ML 20 ML VIAL ONE (14:30)
[2018-02-13] MEDS ORDERED: ONDANSETRON INJ 2 MG/ML 2 ML VIAL ONE (14:30)
[2018-02-13] MEDS ORDERED: MIDAZOLAM HCL 1 MG/ML 2ML VIAL ONE (14:30)
[2018-02-13] MEDS ORDERED: LIDOCAINE HCL 2% 2 ML VIAL (20MG/ML) ONE (14:30)
[2018-02-13] MEDS ORDERED: BACITRACIN 50000 UNIT VIAL ONE (15:41)
--- NOTE | 2018-02-13 15:53 | Neurology Progress Notes ---
Neurology Progress Note Date of Service Feb 13, 2018. Subjective patient was not available for evaluation as he was in the OR Objective Date Time Temp Pulse Resp B/P (MAP) Pulse Ox O2 Delivery O2 Flow Rate FiO2 02/13/18 11:40 36.8 56 18 141/69 (93) 96 02/13/18 08:00 99 Room Air 02/13/18 07:43 36.9 86 20 139/76 (97) 99 02/13/18 04:30 Room Air 02/13/18 03:37 36.7 60 20 143/92 97 Room Air 02/13/18 02:51 36.7 68 18 146/93 97 02/13/18 02:20 36.7 68 18 146/93 97 02/13/18 00:21 Room Air 02/12/18 23:54 63 02/12/18 23:51 36.9 59 23 151/86 95 Room Air Last 24 Hours Test 02/13/18 00:00 02/13/18 00:15 02/13/18 00:25 02/13/18 00:28 White Blood Count 8.16 K/uL Red Blood Count 4.98 M/uL Hemoglobin 15.0 g/dL Hematocrit 43.7 % Mean Corpuscular Volume 87.8 fL Mean Corpuscular Hemoglobin 30.1 pg Mean Corpuscular Hemoglobin Concent 34.3 g/dl Platelet Count 190 K/uL Mean Platelet Volume 10.2 fL Neutrophils (%) (Auto) 48.8 % Lymphocytes (%) (Auto) 41.4 % Monocytes (%) (Auto) 6.5 % Eosinophils (%) (Auto) 2.8 % Basophils (%) (Auto) 0.4 % Neutrophils # (Auto) 3.98 K/uL Lymphocytes # (Auto) 3.38 K/uL Monocytes # (Auto) 0.53 K/uL Eosinophils # (Auto) 0.23 K/uL Basophils # (Auto) 0.03 K/uL RDW Standard Deviation 47.5 fL RDW Coefficient of Variation 14.8 % Immature Granulocyte % (Auto) 0.1 % Immature Granulocyte # (Auto) 0.01 K/uL Prothrombin Time 10.1 SECONDS Prothromb Time International Ratio 1.0 Activated Partial Thromboplast Time 27.5 SECONDS Partial Thromboplastin Ratio 1.1 Sodium Level 142 mmol/L Potassium Level 3.5 mmol/L Chloride Level 107 mmol/L Carbon Dioxide Level 27 mmol/L Anion Gap 8.0 mmol/L Blood Urea Nitrogen 9 mg/dl Creatinine 0.80 mg/dl Est Creatinine Clear Calc Drug Dose 86.9 ml/min Estimated GFR () 116.6 Estimated GFR (Non- 100.6 BUN/Creatinine Ratio 11.3 Random Glucose 75 mg/dl Calcium Level 8.6 mg/dl Total Bilirubin 0.2 mg/dl Aspartate Amino Transf (AST/SGOT) 21 U/L Alanine Aminotransferase (ALT/SGPT) 18 U/L Alkaline Phosphatase 60 U/L Total Protein 7.3 gm/dl Albumin 3.6 gm/dl Globulin 3.7 gm/dl Albumin/Globulin Ratio 1.0 Urine Color YELLOW Urine Appearance CLEAR Urine pH 6.0 Urine Specific [place] 1.007 Urine Protein NEG Urine Glucose (UA) NEG Urine Ketones NEG Urine Occult Blood 1+ Urine Nitrite NEG Urine Bilirubin NEG Urine Urobilinogen NEG Urine Leukocyte Esterase NEG Urine WBC (Auto) 0 /hpf Urine RBC (Auto) 0-4 /hpf Urine Hyaline Casts (Auto) 0 /lpf Urine Epithelial Cells (Auto) 0-5 /lpf Urine Bacteria (Auto) NEG Ethyl Alcohol mg/dL 103.0 mg/dl Bedside Lactic Acid Venous 1.21 mmol/L Test 02/13/18 05:53 Vitamin B12 Level 311 pg/mL Folate 8.22 ng/mL Imaging: chart reviewed Exam: no exam during this encounter Current Inpatient Medications Medications (Trade) Dose Ordered Sig/Lindsay Route Start Time Stop Time Status Last Admin Dose Admin Acetaminophen (Tylenol Tab) 650 mg Q4H PRN PO 02/13/18 02:15 03/15/18 02:14 Al Hydrox/Mg Hydrox/Simethicone (Maalox Max Susp) 15 ml Q4H PRN PO 02/13/18 02:15 03/15/18 02:14 Ondansetron HCl (Zofran Inj) 4 mg Q6H PRN IV 02/13/18 02:15 03/15/18 02:14 Nitroglycerin (Nitrostat Tab) 0.4 mg UD PRN SL 02/13/18 02:15 03/15/18 02:14 Polyethylene (Miralax Powder Packet) 17 gm DAILY PRN PO 02/13/18 02:15 03/15/18 02:14 Vancomycin HCl (Consult) 1 ea UD PRN N/A 02/13/18 02:15 03/15/18 02:14 Sodium Chloride 1,000 ml @ 75 mls/hr [id number] IV 02/13/18 05:00 03/15/18 04:59 02/13/18 08:23 75 MLS/HR Thiamine HCl 100 mg/Syringe 10 ml @ 2 mls/min Q24H IV 02/13/18 03:00 03/15/18 02:59 02/13/18 03:42 2 MLS/MIN Lorazepam (Ativan Tab) PRN Dosing -Active Protocol UD PRN PO 02/13/18 02:15 03/15/18 02:14 Gabapentin (Neurontin Tab) 1,200 mg TODAY@0400 PO 02/13/18 04:00 03/15/18 03:59 02/13/18 03:43 1,200 MG Multivitamins/ Minerals (Multivitamin W/ Minerals Tab) 1 tab QAM PO 02/13/18 09:00 03/15/18 08:59 02/13/18 08:23 1 TAB Albuterol/ Ipratropium (Duoneb) 3 ml Q4R PRN INH 02/13/18 02:15 03/15/18 02:14 Albuterol (Ventolin Hfa Inhaler) 2 puffs Q4 PRN INH 02/13/18 02:15 03/15/18 02:14 Gabapentin (Neurontin Tab) 600 mg Q6H PO 02/13/18 10:00 02/13/18 16:01 02/13/18 10:23 600 MG Gabapentin (Neurontin Tab) 600 mg Q8H PO 02/14/18 00:00 02/14/18 16:01 Gabapentin (Neurontin Tab) 600 mg Q12H PO 02/15/18 04:00 02/15/18 16:01 Gabapentin (Neurontin Tab) 600 mg Q24H PO 02/16/18 16:00 02/16/18 16:01 Nicotine (Nicoderm Cq 21MG Patch) 1 patch QAM TD 02/13/18 03:45 03/15/18 03:44 02/13/18 08:23 1 PATCH Miscellaneous (Remove Nicoderm Patch) 1 ea HS N/A 02/13/18 21:00 03/15/18 20:59 Lorazepam (Ativan Inj) 1 mg ONE PRN IV 02/13/18 08:15 Lorazepam (Ativan Inj) 0.5 mg Q4H PRN IV 02/13/18 08:15 03/15/18 08:14 Vancomycin HCl 1000 mg/Sodium Chloride 270 ml @ 125 mls/hr Q12H IV 02/13/18 16:00 02/23/18 15:59 Impression 57 year old male with history of seizure with EtOH use vs pseudo seizures Plan 1. chart has been reviewed will evaluate tomorrow when patient back in his room from OR 2. currently on DT protocol, thiamine supplement I have seen and discussed above patient with Dr Bin Meyers, neurology P)atient seen examined and chart reviewed along with prior records from outpatient visits with Dr Red in 2008 and 2009 and er visits here in the same era. now in for syncopal event that may well have been precipitated by pain of attempts at self surgery on right finger. In the pasost there has been question of etoh related events, nonepileptic events and in the er on admission some unusual behavior was reported but now has had none is being rxed for possible dts feels well does not seem agitated and had a normal eeg so am very loathe to re start on lamictal ( He soul in fact be reluctant to take it and compliance likely to be low at best ) we will check an mri and if normal see only prn the event does not need to be reported to the [facility] at this point Bin Meyers MD
--- NOTE | 2018-02-13 15:54 | History & Physical Bridge Note ---
H&P Re-Evaluation Bridge Note: I have examined the patient, reviewed the History & Physical and in the interval since the performance of the History & Physical I have noted the following changes of clinical significance: No changes noted
[2018-02-13] MEDS ORDERED: DEXAMETHASONE SOD INJ 4 MG/ML VIAL ONE (16:14)
[2018-02-13] MEDS ORDERED: KETOROLAC TROMETHAMINE 30 MG/ML VIAL ONE (16:14)
[2018-02-13] MEDS ORDERED: HYDROmorphone INJ 1 MG/ML SYR IV PRN (16:30)
[2018-02-13] MEDS ORDERED: NALOXONE HCL 0.4 MG/1 ML VIAL/CARP IV PRN (16:30)
[2018-02-13] MEDS ORDERED: EpHEDrine SULFATE INJ 50 MG/ML AMP IV PRN (16:30)
[2018-02-13] MEDS ORDERED: LABETALOL HCL IV 5 MG/ML 20ML IV PRN (16:30)
[2018-02-13] MEDS ORDERED: FLUMAZENIL 0.1 MG/1 ML 10 ML VIAL IV PRN (16:30)
[2018-02-13] MEDS ORDERED: PROMETHAZINE HCL INJ 12.5 MG in SODIUM CHLORIDE 0.9% 50ML 50 ML IV PRN (16:30)
[2018-02-13] MEDS ORDERED: ATROPINE SULFATE 0.1 MG/ML 5ML SYR IV PRN (16:30)
--- NOTE | 2018-02-13 16:32 | [facility] Post Operative Brief Note ---
Immediate Operative Summary Operative Date Feb 13, 2018. Pre-Operative Diagnosis Abscess right third finger Post-Operative Diagnosis Same Procedure(s) Performed Incision and drainage right third finger Surgeon Dr Evans Video Game Script Writer Surgeon(s) None Estimated Blood Loss 1ml Findings Consistent with Post-Op Diagnosis Specimens Culture#1 abcsess right third finger for gram stain, aerobic and anaerobic Anesthesia Type General Disposition Accompanied Pt To Recover: no Disposition: Recovery Room / PACU Overlapping Procedure I was present for: the critical portions of procedure. I was immediately available: during the entire case
[2018-02-13] MEDS ORDERED: OXYCODONE HCL IR 5 MG TAB (IMMEDIATE RELEASE) PO PRN (16:45)
[2018-02-13] MEDS ORDERED: VANCOMYCIN IV 0 MG in SODIUM CHLORIDE 0.9% 500ML 500 ML IV SCH (16:45)
--- NOTE | 2018-02-13 17:17 | Anesthesiology Progress Note ---
Anesthesia Post Op Note Date & Time Feb 13, 2018 at 17:16 Vital Signs Pain Intensity: 0 Vital Signs Past 12 Hours Date Time Temp Pulse Resp B/P (MAP) Pulse Ox O2 Delivery O2 Flow Rate FiO2 02/13/18 17:12 139/86 02/13/18 17:09 41 9 100 02/13/18 17:09 41 9 02/13/18 17:07 36.8 67 20 139/86 (93) 100 Nasal Cannula 2 Oxymask 02/13/18 17:06 144/82 02/13/18 17:05 150/84 02/13/18 17:04 43 17 02/13/18 17:04 52 17 100 02/13/18 17:01 137/102 02/13/18 16:59 42 14 02/13/18 16:59 42 14 100 02/13/18 16:58 57 18 100 02/13/18 16:58 51 18 02/13/18 16:56 138/86 02/13/18 16:53 59 21 100 02/13/18 16:53 52 21 02/13/18 16:51 126/78 02/13/18 16:48 40 12 100 02/13/18 16:48 40 12 02/13/18 16:46 126/74 02/13/18 16:43 44 17 02/13/18 16:43 41 17 100 02/13/18 16:41 106/64 02/13/18 16:39 108/64 02/13/18 16:38 7 02/13/18 16:38 7 02/13/18 16:38 36.7 46 12 108/64 (74) 99 Oxymask 10 02/13/18 11:40 36.8 56 18 141/69 (93) 96 02/13/18 08:00 99 Room Air 02/13/18 07:43 36.9 86 20 139/76 (97) 99 Notes Mental Status: alert / awake / arousable, participated in evaluation Pt Amnestic to Procedure: Yes Nausea / Vomiting: adequately controlled Pain: adequately controlled Airway Patency, RR, SpO2: stable & adequate BP & HR: stable & adequate Hydration State: stable & adequate Anesthetic Complications: no major complications apparent
[2018-02-13] MEDS: VANCOMYCIN IV 1,000 MG in SODIUM CHLORIDE 0.9% 250ML 250 ML IV SCH (18:11)
--- NOTE | 2018-02-13 19:03 | OPERATIVE REPORT ---
DATE OF OPERATION: 02/13/2018 PREOPERATIVE DIAGNOSIS: Abscess, right third finger. POSTOPERATIVE DIAGNOSIS: Abscess, right third finger. PROCEDURE: Incision and drainage with irrigation of right third finger abscess. SURGEON: Dr. Evans. ANESTHESIA: General. COMPLICATIONS: None. DESCRIPTION OF PROCEDURE: Following induction of adequate general anesthesia, the patient's right hand was prepped and draped with a Betadine solution in the usual sterile manner. The limb was exsanguinated with elevation and tourniquet was inflated to 250 mmHg. Longitudinal incision was made over the abscess. A small amount of slightly purulent fluid was obtained. No foreign body was identified. Finger was irrigated with pulsatile irrigation and after initial irrigation, the wound was inspected and was found to have no communication with the tendon sheath. A final irrigation with the remainder of the 3000 mL of pulsatile irrigation was carried out. The wound was left open and dressed with Adaptic, 4 x 4's, 1-inch Al and 1-inch Coban. The patient was brought to the recovery room in stable and good condition. He tolerated the procedure well. I attest to the content of the Intraoperative Record and any orders documented therein. Any exception s are noted below.
[2018-02-14] VITALS (8 sets, daily range): BP systolic 91–147; BP diastolic 48–77; PULSE 41–66; TEMP 36.6–37.1; O2SAT 95–99
[2018-02-14] MEDS: GABAPENTIN 600MG Q8H DOSE PO SCH ×3 (00:54→15:55)
[2018-02-14] MEDS: THIAMINE HCL INJ 100 MG in SYRINGE 9 ML IV SCH (03:19)
[2018-02-14] MEDS: VANCOMYCIN IV 1,000 MG in SODIUM CHLORIDE 0.9% 250ML 250 ML IV SCH ×2 (03:19→15:54)
[2018-02-14 06:05] LABS: BASO % 0.3 %; BASO ABS # 0.02 K/uL (0-0.2); EOS % 0.3 %; EOS ABS # 0.02 K/uL (0-0.5); HEMATOCRIT 41.6 % (42-52); HEMOGLOBIN 14.2 g/dL (14.0-18.0); LYMPH % 23.9 %; LYMPH ABS # 1.91 K/uL (1.2-3.4); MEAN CELL VOLUME 88.5 fL (80-100); MEAN CORPUSCULAR HEMOGLOBIN 30.2 pg (25-34); MEAN CORPUSCULAR HGB CONC 34.1 g/dl (32-36); MONO % 6.3 %; NEUT % 69.2 %; NEUT ABS # 5.55 K/uL (1.4-6.5); PLATELET COUNT 186 K/uL (130-400); RED CELL DISTRIBUTION WIDTH CV 14.8 % (11.5-14.5)
[2018-02-14 06:46] LABS: CREATININE 0.68 mg/dl (0.60-1.40); POTASSIUM 4.3 mmol/L (3.5-5.1)
[2018-02-14] MEDS: SODIUM CHLORIDE 0.9% 1000ML 1,000 ML IV SCH ×2 (07:40→21:02)
[2018-02-14] MEDS: CEROVITE ADV FORMULA TAB PO SCH (08:27)
[2018-02-14] MEDS: NICOTINE 21 MG/24 HR TDSY TD SCH (08:28)
--- NOTE | 2018-02-14 10:25 | Anesthesiology Progress Note ---
Anesthesia Post Op Note Date & Time Feb 14, 2018 at 10:24 Vital Signs Pain Intensity: 0.0 Vital Signs Past 12 Hours Date Time Temp Pulse Resp B/P (MAP) Pulse Ox O2 Delivery O2 Flow Rate FiO2 02/14/18 08:00 36.8 50 18 120/72 (88) 96 02/14/18 03:27 99/55 (70) 02/14/18 03:24 36.8 41 15 91/48 (62) 96 Room Air 02/13/18 23:12 37.6 56 19 113/65 (81) 97 Room Air Notes Mental Status: alert / awake / arousable, participated in evaluation Pt Amnestic to Procedure: Yes Nausea / Vomiting: adequately controlled Pain: adequately controlled Airway Patency, RR, SpO2: stable & adequate BP & HR: stable & adequate Hydration State: stable & adequate Anesthetic Complications: no major complications apparent
--- NOTE | 2018-02-14 11:23 | Orthopedic Progress Note ---
Orthopedic Progress Note Date of Service Feb 14, 2018. Subjective Post OP Day: 1 Reports: feeling well, Denies: chest pain, SOB, nausea / vomiting, light headedness, calf pain Objective calves soft nontender, N/V intact, capillary refill less than 2 sec., incision C /D/I, A&O x3 Less erythema, less swelling today. Very scant serious drainage from wound site. No further purulence. Date Time Temp Pulse Resp B/P (MAP) Pulse Ox O2 Delivery O2 Flow Rate FiO2 02/14/18 08:00 Room Air 02/14/18 08:00 36.8 50 18 120/72 (88) 96 02/14/18 03:27 99/55 (70) 02/14/18 03:24 36.8 41 15 91/48 (62) 96 Room Air 02/13/18 23:12 37.6 56 19 113/65 (81) 97 Room Air 02/13/18 20:00 Room Air 02/13/18 19:59 36.8 49 18 139/83 (101) 94 Room Air 02/13/18 17:33 36.6 46 16 153/94 (113) 94 Room Air 02/13/18 17:12 139/86 02/13/18 17:09 41 9 100 02/13/18 17:09 41 9 02/13/18 17:07 36.8 67 20 139/86 (93) 100 Nasal Cannula 2 Oxymask 02/13/18 17:06 144/82 02/13/18 17:05 150/84 02/13/18 17:04 43 17 02/13/18 17:04 52 17 100 02/13/18 17:01 137/102 02/13/18 16:59 42 14 02/13/18 16:59 42 14 100 02/13/18 16:58 57 18 100 02/13/18 16:58 51 18 02/13/18 16:56 138/86 02/13/18 16:53 59 21 100 02/13/18 16:53 52 21 02/13/18 16:51 126/78 02/13/18 16:48 40 12 100 02/13/18 16:48 40 12 02/13/18 16:46 126/74 02/13/18 16:43 44 17 02/13/18 16:43 41 17 100 02/13/18 16:41 106/64 02/13/18 16:39 108/64 02/13/18 16:38 7 02/13/18 16:38 7 02/13/18 16:38 36.7 46 12 108/64 (74) 99 Oxymask 10 02/13/18 11:40 36.8 56 18 141/69 (93) 96 Laboratory Results 24 Hours: Test 02/14/18 05:47 White Blood Count 8.00 K/uL Red Blood Count 4.70 M/uL Hemoglobin 14.2 g/dL Hematocrit 41.6 % Mean Corpuscular Volume 88.5 fL Mean Corpuscular Hemoglobin 30.2 pg Mean Corpuscular Hemoglobin Concent 34.1 g/dl Platelet Count 186 K/uL Mean Platelet Volume 10.0 fL Neutrophils (%) (Auto) 69.2 % Lymphocytes (%) (Auto) 23.9 % Monocytes (%) (Auto) 6.3 % Eosinophils (%) (Auto) 0.3 % Basophils (%) (Auto) 0.3 % Neutrophils # (Auto) 5.55 K/uL Lymphocytes # (Auto) 1.91 K/uL Monocytes # (Auto) 0.50 K/uL Eosinophils # (Auto) 0.02 K/uL Basophils # (Auto) 0.02 K/uL Assessment & Plan Assessment: POD#1 sp I&D right middle finger Plan: Follow cultures, likely DC home on PO abx Daily dressing changes. Wound care consulted. Follow up with Dr. Evans in 7-10 days for wound check. Orthopedically stable, will sign off. See data migration consultant recomendations
--- NOTE | 2018-02-14 11:31 | Consultant Recommendations ---
Pyrotechnician Recommendations Date of Service Feb 14, 2018. Pyrotechnician Recommendations Keep incision clean and dry. Daily dressing changes. May resume light duty work until follow up appointment. Follow up with Dr. Evans in 7-10 days. [phone] Antibiotics per medical service recommendations.
--- NOTE | 2018-02-14 13:46 | Neurology Consultation ---
Neurology Consultation Date of Consultation: Feb 14, 2018. Attending Physician: Papito George MD Primary Care Physician: No Doctor, Assigned Reason for Consultation: seizure? History of Present Illness Source: patient Kendall is a 57 year old male with PMH alcoholism, tobacco abuse,COPD. He has had episodes in the past of syncope episodes which where surrounding a stop of his regular EtOH use. At one point he was put on Lamictal but he no longer is taking it. 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 He states he went to the [facility] but they were taking too long to see him so he left AMA. He has cut back on his EtOH consumption from 30 beers per day to a 6 pack. He went home and decided to drink a couple of beers and try to remove the thorn himself. He had no stopped or reduced the amount of beers he drinks. After he cut into his finger he had an episode of confusion, staring and body shaking. He denies any LOC. He remembers the ambulance coming and remembers the ride to the hospital. he was alert and oriented in the ambulance and in the ED. Yesterday he was in the OR having the thorn removed and debris that was in his hand. He had no loss of bowel or bladder and didn't bite his tongue. 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 denies, CP, SOB, abdominal pain, weakness, numbness tingling, vision changes, N, V. Past Medical/Surgical History Medical Problems: (1) Altered mental status Status: Acute (2) Puncture wound of right hand with infection Status: Acute (3) Wound infection Status: Acute Social History Smoking Status: Current every day smoker Smokeless Tobacco Use: No Alcohol Use: heavy Drug Use: none Marital Status: Housing Status: lives with family Occupation Status: employed Allergies Coded Allergies: Blueberry (Verified Allergy, Severe, HIVES, 02/13/18) Penicillins (Verified Allergy, Severe, ANAPHYLAXIS, 02/13/18) Aspirin (Verified Allergy, Unknown, ?, 02/13/18) Current Inpatient Medications Current Inpatient Medications Medications (Trade) Dose Ordered Sig/Lindsay Route Start Time Stop Time Status Last Admin Dose Admin Acetaminophen (Tylenol Tab) 650 mg Q4H PRN PO 02/13/18 02:15 03/15/18 02:14 Al Hydrox/Mg Hydrox/Simethicone (Maalox Max Susp) 15 ml Q4H PRN PO 02/13/18 02:15 03/15/18 02:14 Ondansetron HCl (Zofran Inj) 4 mg Q6H PRN IV 02/13/18 02:15 03/15/18 02:14 Nitroglycerin (Nitrostat Tab) 0.4 mg UD PRN SL 02/13/18 02:15 03/15/18 02:14 Polyethylene (Miralax Powder Packet) 17 gm DAILY PRN PO 02/13/18 02:15 03/15/18 02:14 Vancomycin HCl (Consult) 1 ea UD PRN N/A 02/13/18 02:15 03/15/18 02:14 Sodium Chloride 1,000 ml @ 75 mls/hr [id number] IV 02/13/18 05:00 03/15/18 04:59 02/13/18 21:26 75 MLS/HR Thiamine HCl 100 mg/Syringe 10 ml @ 2 mls/min Q24H IV 02/13/18 03:00 03/15/18 02:59 02/14/18 03:19 2 MLS/MIN Lorazepam (Ativan Tab) PRN Dosing -Active Protocol UD PRN PO 02/13/18 02:15 03/15/18 02:14 Multivitamins/ Minerals (Multivitamin W/ Minerals Tab) 1 tab QAM PO 02/13/18 09:00 03/15/18 08:59 02/14/18 08:27 1 TAB Albuterol/ Ipratropium (Duoneb) 3 ml Q4R PRN INH 02/13/18 02:15 03/15/18 02:14 Albuterol (Ventolin Hfa Inhaler) 2 puffs Q4 PRN INH 02/13/18 02:15 03/15/18 02:14 Gabapentin (Neurontin Tab) 600 mg Q8H PO 02/14/18 00:00 02/14/18 16:01 02/14/18 00:54 600 MG Gabapentin (Neurontin Tab) 600 mg Q12H PO 02/15/18 04:00 02/15/18 16:01 Gabapentin (Neurontin Tab) 600 mg Q24H PO 02/16/18 16:00 02/16/18 16:01 Nicotine (Nicoderm Cq 21MG Patch) 1 patch QAM TD 02/13/18 03:45 03/15/18 03:44 02/14/18 08:28 1 PATCH Miscellaneous (Remove Nicoderm Patch) 1 ea HS N/A 02/13/18 21:00 03/15/18 20:59 02/13/18 21:26 1 EA Lorazepam (Ativan Inj) 1 mg ONE PRN IV 02/13/18 08:15 Lorazepam (Ativan Inj) 0.5 mg Q4H PRN IV 02/13/18 08:15 03/15/18 08:14 Vancomycin HCl 1000 mg/Sodium Chloride 270 ml @ 125 mls/hr Q12H IV 02/13/18 16:00 02/23/18 15:59 02/14/18 03:19 125 MLS/HR Oxycodone HCl (Roxicodone Immediate Rel Tab) `1-2 tabs for pain 1 tab ... Q4HWA PRN PO 02/13/18 16:45 02/27/18 16:44 Physical Exam Vital Signs (Past 24 Hrs): Date Time Temp Pulse Resp B/P (MAP) Pulse Ox O2 Delivery O2 Flow Rate FiO2 02/14/18 11:46 36.8 66 18 104/59 (74) 99 02/14/18 08:00 Room Air 02/14/18 08:00 36.8 50 18 120/72 (88) 96 02/14/18 03:27 99/55 (70) 02/14/18 03:24 36.8 41 15 91/48 (62) 96 Room Air 02/13/18 23:12 37.6 56 19 113/65 (81) 97 Room Air 02/13/18 20:00 Room Air 02/13/18 19:59 36.8 49 18 139/83 (101) 94 Room Air 02/13/18 17:33 36.6 46 16 153/94 (113) 94 Room Air 02/13/18 17:12 139/86 02/13/18 17:09 41 9 100 02/13/18 17:09 41 9 02/13/18 17:07 36.8 67 20 139/86 (93) 100 Nasal Cannula 2 Oxymask 02/13/18 17:06 144/82 02/13/18 17:05 150/84 02/13/18 17:04 43 17 02/13/18 17:04 52 17 100 02/13/18 17:01 137/102 02/13/18 16:59 42 14 02/13/18 16:59 42 14 100 02/13/18 16:58 57 18 100 02/13/18 16:58 51 18 02/13/18 16:56 138/86 02/13/18 16:53 59 21 100 02/13/18 16:53 52 21 02/13/18 16:51 126/78 02/13/18 16:48 40 12 100 02/13/18 16:48 40 12 02/13/18 16:46 126/74 02/13/18 16:43 44 17 02/13/18 16:43 41 17 100 02/13/18 16:41 106/64 02/13/18 16:39 108/64 02/13/18 16:38 7 02/13/18 16:38 7 02/13/18 16:38 36.7 46 12 108/64 (74) 99 Oxymask 10 Physical Exam: Constitutional:appearance nourished, healthy and normal Ears, Nose, Mouth and Throat: mucous membranes moist, no injection and skin normal, eyes normal Cardiovascular: normal S-1 and S-2 and regular rate and rhythm Respiratory: course breath sounds Musculoskeletal: no peripheral edema and good distal pulses Skin: no stigmata of neurocutaneous disease noted and normal and intact Eyes: extraocular muscles intact (EOMI) and pupils equal, round and reactive to light (PERRL) NEUROLOGIC EXAMINATION: Mental status: Alert and interactive Oriented to full date and location Oriented to person Speech fluent with no evidence of aphasia Cranial Nerves smile eye brow raise symmetric Reflexes: Deep tendon reflexes were symmetrical and graded 2/5. Plantar responses were flexor. Sensory: intact to light touch Coordination: finger to nose no bi pass Gait/Stance: Posture sitting up in bed, has been walking in room and to the bathroom with assistance Motor: Negative for pronator drift of out stretched arms with eyes closed. Strength: biceps,triceps hand service technician left 5/5, right hand service technician limited due to surgery, hip flex patellar, plantar flex ext 5/5 Laboratory Results Past 24 Hours: 02/14/18 05:47 Red Blood Count 4.70, Mean Corpuscular Volume 88.5, Mean Corpuscular Hemoglobin 30.2, Mean Corpuscular Hemoglobin Concent 34.1, Mean Platelet Volume 10.0, Neutrophils (%) (Auto) 69.2, Lymphocytes (%) (Auto) 23.9, Monocytes (%) (Auto) 6.3, Eosinophils (%) (Auto) 0.3, Basophils (%) (Auto) 0.3, Neutrophils # (Auto) 5.55, Lymphocytes # (Auto) 1.91, Monocytes # (Auto) 0.50, Eosinophils # (Auto) 0.02, Basophils # (Auto) 0.02 02/14/18 05:47 Test 02/14/18 05:47 White Blood Count 8.00 K/uL (4.8-10.8) Red Blood Count 4.70 M/uL (4.7-6.1) Hemoglobin 14.2 g/dL (14.0-18.0) Hematocrit 41.6 % (42-52) Mean Corpuscular Volume 88.5 fL (80-100) Mean Corpuscular Hemoglobin 30.2 pg (25-34) Mean Corpuscular Hemoglobin Concent 34.1 g/dl (32-36) Platelet Count 186 K/uL (130-400) Mean Platelet Volume 10.0 fL (7.4-10.4) Neutrophils (%) (Auto) 69.2 % Lymphocytes (%) (Auto) 23.9 % Monocytes (%) (Auto) 6.3 % Eosinophils (%) (Auto) 0.3 % Basophils (%) (Auto) 0.3 % Neutrophils # (Auto) 5.55 K/uL (1.4-6.5) Lymphocytes # (Auto) 1.91 K/uL (1.2-3.4) Monocytes # (Auto) 0.50 K/uL (0.11-0.59) Eosinophils # (Auto) 0.02 K/uL (0-0.5) Basophils # (Auto) 0.02 K/uL (0-0.2) RDW Standard Deviation 48.0 fL (36.4-46.3) RDW Coefficient of Variation 14.8 % (11.5-14.5) Immature Granulocyte % (Auto) 0.0 % Immature Granulocyte # (Auto) 0.00 K/uL (0.00-0.02) Anion Gap 5.0 mmol/L (3-11) Est Creatinine Clear Calc Drug Dose 108.3 ml/min Estimated GFR () 124.6 Estimated GFR (Non- 107.5 BUN/Creatinine Ratio 18.4 (10-20) Calcium Level 8.0 mg/dl (8.5-10.1) Magnesium Level 1.9 mg/dl (1.8-2.4) Imaging CT head- no acute abnormalities xray right hand- No acute fracture. Punctate foreign body noted within the ulnar dorsal soft tissues of the third digit at the level of the mid proximal phalanx. EEG- This EEG is essentially normal during wakefulness without evidence for focal or generalized encephalopathy and without evidence for potentially epileptogenic activity. 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 CT head with no acute abnormalities 2. currently on DT protocol, thiamine supplement -continue and watch for DTs 3. PT/OT for discharge needs 4. EEG no seizure focus 5. hand surgery- on vancomycin 6. EtOH cessation -strongly urged 7. smoking cessation strongly urged - 1ppd smoker since age 14 8. patient claims no LOC during this episode. may have been a vasovagal episode due to hand injury and self performed surgery. 9. MRI brain for any lesions or abnormalities I have seen and discussed above patient with Dr Bin Meyers, neurology See my note from yesterday that was erroneously placed there we did not see this man yesterday but did review the history and now have seen him and reviewed his history and outpatient and er notes from the prior visits with Dr Red and prior eegs at this time suspect the event of near syncope was mediated by pain and was not a seizure and at this point with three normal eegs all we need is brain imaging and observation and not aed rx ( He is unlikely to comply with this anyway ) Event does not need reported to [facility] will review the delfina tomorrow and likely sign off with prn revisits to neurology etoh may hve been involved with the current event as it has in the past but he is currently showing no signs of withdrawal Addendum MRI is done and normal we will sign off at this point and he can be discharged when clear with internal medicine service Bin Meyers MD
[2018-02-14] MEDS ORDERED: VANCOMYCIN TROUGH ONE (15:30)
[2018-02-14] MEDS ORDERED: GADAVIST IV PRN (15:30)
--- NOTE | 2018-02-14 15:33 | DIAGNOSTIC IMAGING REPORT ---
BRAIN COMBO FOR SEIZURE CLINICAL HISTORY: EtOH related seizures r/o tumor or brain abnormalities COMPARISON STUDY: No previous studies for comparison. TECHNIQUE: Utilizing a 1.5 Randa magnet and dedicated coil, multiplanar, multiecho imaging of the brain was performed pre and postcontrast administration. IV administration of 8 mL of Gadavist contrast was uneventful. Thin cut coronal T2 imaging was performed according to seizure protocol. FINDINGS: Diffusion-weighted images show no evidence for an acute ischemic event. Signal characteristics the cerebellar as well as cerebral hemispheres are unremarkable. No abnormal postcontrast enhancement. Sella and parasellar regions are unremarkable. IMPRESSION: Normal study The above report was generated using voice recognition software. It may contain grammatical, syntax or spelling errors. Electronically signed by: Robert Luciano M.D. 02/14/2018 3:32 PM Dictated Date/Time: 02/14/2018 3:30 PM
--- NOTE | 2018-02-14 20:32 | Progress Note ---
Medicine Progress Note Date & Time of Visit: Feb 14, 2018 at 20:24. Subjective Seen sitting up in bed, watching TV States he feels better today overall Right middle finger much better Denies tremors, anxiety, palpitations, headache, nausea, hallucinations No recurrence of seizure like episodes Denies other symptoms Objective Last 8 Hrs Date Time Temp Pulse Resp B/P (MAP) Pulse Ox O2 Delivery O2 Flow Rate FiO2 02/14/18 19:10 37.1 58 16 114/65 (81) 95 Room Air 02/14/18 16:04 36.6 50 16 147/77 (100) 96 Room Air 02/14/18 16:00 96 Room Air Physical Exam: General- oriented x3, not in distress, speaks in sentences with no effort Eyes-anicteric Neck- supple, no JVD Lungs- clear to auscultation bilaterally, no rales or wheezes Heart- regular rhythm; no murmur,normal rate Abdomen- normal bowel sounds, soft, nontender Extremities- right third digit: dressing over the proximal phalanx of the right third digit, no bleeding, discharge, swelling Full range of motion fingers and hand no pretibial edema, no calf tenderness; peripheral pulses intact Neuro- alert, oriented x 3; no gross focal deficits Skin- warm & dry Laboratory Results: Last 24 Hours Test 02/14/18 05:47 White Blood Count 8.00 K/uL Red Blood Count 4.70 M/uL Hemoglobin 14.2 g/dL Hematocrit 41.6 % Mean Corpuscular Volume 88.5 fL Mean Corpuscular Hemoglobin 30.2 pg Mean Corpuscular Hemoglobin Concent 34.1 g/dl Platelet Count 186 K/uL Mean Platelet Volume 10.0 fL Neutrophils (%) (Auto) 69.2 % Lymphocytes (%) (Auto) 23.9 % Monocytes (%) (Auto) 6.3 % Eosinophils (%) (Auto) 0.3 % Basophils (%) (Auto) 0.3 % Neutrophils # (Auto) 5.55 K/uL Lymphocytes # (Auto) 1.91 K/uL Monocytes # (Auto) 0.50 K/uL Eosinophils # (Auto) 0.02 K/uL Basophils # (Auto) 0.02 K/uL RDW Standard Deviation 48.0 fL RDW Coefficient of Variation 14.8 % Immature Granulocyte % (Auto) 0.0 % Immature Granulocyte # (Auto) 0.00 K/uL Sodium Level 140 mmol/L Potassium Level 4.3 mmol/L Chloride Level 110 mmol/L Carbon Dioxide Level 25 mmol/L Anion Gap 5.0 mmol/L Blood Urea Nitrogen 13 mg/dl Creatinine 0.68 mg/dl Est Creatinine Clear Calc Drug Dose 108.3 ml/min Estimated GFR () 124.6 Estimated GFR (Non- 107.5 BUN/Creatinine Ratio 18.4 Random Glucose 94 mg/dl Calcium Level 8.0 mg/dl Magnesium Level 1.9 mg/dl Assessment & Plan ASSESSMENT AND PLAN: This is a 57-year-old male who presents with right middle finger infection. 1. Right middle finger Cellulitis, Foreign Body -- Had thorn in his finger a week ago and he tried to take it out with knife -- Hand xray: 1. No acute fracture. 2. Punctate foreign body noted within the ulnar dorsal soft tissues of the third digit at the level of the mid proximal phalanx. Status post incision and drainage 02/13/2018 Wound drainage cultures positive for staph aureus, sensitivities pending Blood cultures negative so far continue Vancomycin IV day #2 Anticipated transition to oral antibiotics pending wound culture sensitivities Appreciate orthopedic service recommendations 2. Confusion, encephalopathy -- questionable seizures. history of seizures in the past, was on Lamictal at the time and had EEG done a couple of times and it was negative . Thought to be from alcohol withdrawal but neurology advised to be on Lamictal. Patient says he stopped Lamictal several years ago. 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 Alcoholism -- Alcohol withdrawal protocol -- Including gabapentin taper -- no signs of overt withdrawal today monitor closely 4. Tobacco abuse. - needs counselling 5. Deep venous thrombosis prophylaxis -- sequential compression devices for now. DISPOSITION: anticipate d/c home tomorrow pending wound cultures Current Inpatient Medications: Current Inpatient Medications Medications (Trade) Dose Ordered Sig/Lindsay Route Start Time Stop Time Status Last Admin Dose Admin Acetaminophen (Tylenol Tab) 650 mg Q4H PRN PO 02/13/18 02:15 03/15/18 02:14 Al Hydrox/Mg Hydrox/Simethicone (Maalox Max Susp) 15 ml Q4H PRN PO 02/13/18 02:15 03/15/18 02:14 Ondansetron HCl (Zofran Inj) 4 mg Q6H PRN IV 02/13/18 02:15 03/15/18 02:14 Nitroglycerin (Nitrostat Tab) 0.4 mg UD PRN SL 02/13/18 02:15 03/15/18 02:14 Polyethylene (Miralax Powder Packet) 17 gm DAILY PRN PO 02/13/18 02:15 03/15/18 02:14 Vancomycin HCl (Consult) 1 ea UD PRN N/A 02/13/18 02:15 03/15/18 02:14 Sodium Chloride 1,000 ml @ 75 mls/hr [id number] IV 02/13/18 05:00 03/15/18 04:59 02/13/18 21:26 75 MLS/HR Thiamine HCl 100 mg/Syringe 10 ml @ 2 mls/min Q24H IV 02/13/18 03:00 03/15/18 02:59 02/14/18 03:19 2 MLS/MIN Lorazepam (Ativan Tab) PRN Dosing -Active Protocol UD PRN PO 02/13/18 02:15 03/15/18 02:14 Multivitamins/ Minerals (Multivitamin W/ Minerals Tab) 1 tab QAM PO 02/13/18 09:00 03/15/18 08:59 02/14/18 08:27 1 TAB Albuterol/ Ipratropium (Duoneb) 3 ml Q4R PRN INH 02/13/18 02:15 03/15/18 02:14 Albuterol (Ventolin Hfa Inhaler) 2 puffs Q4 PRN INH 02/13/18 02:15 03/15/18 02:14 Gabapentin (Neurontin Tab) 600 mg Q12H PO 02/15/18 04:00 02/15/18 16:01 Gabapentin (Neurontin Tab) 600 mg Q24H PO 02/16/18 16:00 02/16/18 16:01 Nicotine (Nicoderm Cq 21MG Patch) 1 patch QAM TD 02/13/18 03:45 03/15/18 03:44 02/14/18 08:28 1 PATCH Miscellaneous (Remove Nicoderm Patch) 1 ea HS N/A 02/13/18 21:00 03/15/18 20:59 02/13/18 21:26 1 EA Lorazepam (Ativan Inj) 1 mg ONE PRN IV 02/13/18 08:15 Lorazepam (Ativan Inj) 0.5 mg Q4H PRN IV 02/13/18 08:15 03/15/18 08:14 Vancomycin HCl 1000 mg/Sodium Chloride 270 ml @ 125 mls/hr Q12H IV 02/13/18 16:00 02/23/18 15:59 02/14/18 15:54 125 MLS/HR Oxycodone HCl (Roxicodone Immediate Rel Tab) `1-2 tabs for pain 1 tab ... Q4HWA PRN PO 02/13/18 16:45 02/27/18 16:44 Gadobutrol (Gadavist) 6 mmol UD PRN IV 02/14/18 15:30 02/18/18 15:29
[2018-02-15] VITALS (7 sets, daily range): BP systolic 119–145; BP diastolic 66–73; PULSE 41–76; TEMP 36.3–37; O2SAT 95–96
[2018-02-15] MEDS: GABAPENTIN 600MG Q12H DOSE PO SCH ×2 (02:10→15:50)
[2018-02-15] MEDS ORDERED: VANCOMYCIN TROUGH ONE (03:30)
[2018-02-15 03:35] LABS: BASO % 0.4 %; BASO ABS # 0.03 K/uL (0-0.2); EOS % 2.1 %; EOS ABS # 0.16 K/uL (0-0.5); HEMATOCRIT 39.4 % (42-52); HEMOGLOBIN 13.4 g/dL (14.0-18.0); IG# 0.02 K/uL (0.00-0.02); LYMPH % 40.6 %; LYMPH ABS # 3.09 K/uL (1.2-3.4); MEAN CELL VOLUME 88.5 fL (80-100); MEAN CORPUSCULAR HEMOGLOBIN 30.1 pg (25-34); MEAN PLATELET VOLUME 9.6 fL (7.4-10.4); MONO % 6.8 %; MONO ABS # 0.52 K/uL (0.11-0.59); NEUT % 49.8 %; PLATELET COUNT 169 K/uL (130-400); RED CELL DISTRIBUTION WIDTH CV 14.8 % (11.5-14.5); RED CELL DISTRIBUTION WIDTH SD 48.1 fL (36.4-46.3); WHITE BLOOD COUNT 7.62 K/uL (4.8-10.8)
[2018-02-15 03:59] LABS: CALCIUM 7.7 mg/dl (8.5-10.1); CREATININE 0.88 mg/dl (0.60-1.40); POTASSIUM 4.3 mmol/L (3.5-5.1)
[2018-02-15] MEDS: VANCOMYCIN IV 1,000 MG in SODIUM CHLORIDE 0.9% 250ML 250 ML IV SCH (04:13)
[2018-02-15] MEDS: THIAMINE HCL INJ 100 MG in SYRINGE 9 ML IV SCH (04:13)
[2018-02-15] MEDS: SODIUM CHLORIDE 0.9% 1000ML 1,000 ML IV SCH (06:39)
[2018-02-15] MEDS: CEROVITE ADV FORMULA TAB PO SCH (08:23)
[2018-02-15] MEDS: NICOTINE 21 MG/24 HR TDSY TD SCH (08:24)
--- NOTE | 2018-02-15 10:17 | Pharmacy Progress Note ---
Pharmacy Abx Dose Short Note Date of Service Feb 15, 2018. Assessment & Plan Assessment 57 year old male receiving Vancomcyin for treatment of finger wound Day # 3 of antimicrobial therapy. Culture from right 2nd finger abscess positive for MRSA Plan Item Value Date Time Vancomycin Level Trough 10.1 mcg/ml 02/15/18 0324 Vancomycin * Estimated Pkinetics: Vd 0.7 L/kg; Mayo ~0.074 hr-1; T1/2 ~9.4; CrCl 83.7 * Trough level of 10.1 mcg/mL is subtherapeutic * Change to 1000 mg IV every 10 hours * Goal trough level for : 15 to 20 mcg/mL * Trough level ordered for: 02/16/18 @ 1930 Pharmacy will continue to follow and will adjust dose/frequency as necessary. Thank you.
[2018-02-15] MEDS ORDERED: VANCOMYCIN IV 1,000 MG in SODIUM CHLORIDE 0.9% 250ML 250 ML IV SCH (16:00)
--- NOTE | 2018-02-15 16:44 | Progress Note ---
Medicine Progress Note Date & Time of Visit: Feb 15, 2018 at 16:33. Subjective resting in bed, comfortable states he feels much better right hand/finger is also significantly improved- no pain denies tremors, hallucination, anxiety, sweats no other symptoms ambulating with no problems states he is ready and would like to be discharged today no other symptoms Objective Last 8 Hrs Date Time Temp Pulse Resp B/P (MAP) Pulse Ox O2 Delivery O2 Flow Rate FiO2 02/15/18 15:05 36.9 69 16 129/66 (87) 96 Room Air 02/15/18 11:51 36.9 66 18 145/73 (97) 96 Physical Exam: General- oriented x3, not in distress, speaks in sentences with no effort Eyes-anicteric Neck- no JVD Lungs- clear breath sounds bilaterally, no rales/wheezes Heart- normal rate, regular rhythm; no murmurs Abdomen- normal bowel sounds, soft, nontender Extremities- right third digit: dressing over the proximal phalanx of the right third digit, no bleeding, discharge, swelling Full range of motion fingers and hand no pretibial edema, no calf tenderness Neuro- alert, oriented x 3; no gross focal deficits Skin- warm & dry Laboratory Results: Last 24 Hours Test 02/15/18 03:24 White Blood Count 7.62 K/uL Red Blood Count 4.45 M/uL Hemoglobin 13.4 g/dL Hematocrit 39.4 % Mean Corpuscular Volume 88.5 fL Mean Corpuscular Hemoglobin 30.1 pg Mean Corpuscular Hemoglobin Concent 34.0 g/dl Platelet Count 169 K/uL Mean Platelet Volume 9.6 fL Neutrophils (%) (Auto) 49.8 % Lymphocytes (%) (Auto) 40.6 % Monocytes (%) (Auto) 6.8 % Eosinophils (%) (Auto) 2.1 % Basophils (%) (Auto) 0.4 % Neutrophils # (Auto) 3.80 K/uL Lymphocytes # (Auto) 3.09 K/uL Monocytes # (Auto) 0.52 K/uL Eosinophils # (Auto) 0.16 K/uL Basophils # (Auto) 0.03 K/uL RDW Standard Deviation 48.1 fL RDW Coefficient of Variation 14.8 % Immature Granulocyte % (Auto) 0.3 % Immature Granulocyte # (Auto) 0.02 K/uL Sodium Level 143 mmol/L Potassium Level 4.3 mmol/L Chloride Level 112 mmol/L Carbon Dioxide Level 27 mmol/L Anion Gap 4.0 mmol/L Blood Urea Nitrogen 12 mg/dl Creatinine 0.88 mg/dl Est Creatinine Clear Calc Drug Dose 83.7 ml/min Estimated GFR () 112.1 Estimated GFR (Non- 96.7 BUN/Creatinine Ratio 13.0 Random Glucose 90 mg/dl Calcium Level 7.7 mg/dl Magnesium Level 1.9 mg/dl Vancomycin Level Trough 10.1 mcg/ml Assessment & Plan ASSESSMENT AND PLAN: This is a 57-year-old male who presents with right middle finger infection. 1. Right 3rd Digit Cellulitis, MRSA, Foreign Body s/p I&D -- Had thorn in his finger a week ago and he tried to take it out with knife -- Hand xray: 1. No acute fracture. 2. Punctate foreign body noted within the ulnar dorsal soft tissues of the third digit at the level of the mid proximal phalanx. Status post incision and drainage 02/13/[address] Evans Wound drainage cultures positive for staph aureus, MRSA Blood cultures negative so far received Vancomycin IV day #3 transition to Clindamycin PO x 7 days ff up with Ortho Dr. Evans in 7-10 days ff up with PCP in 3-5 days 2. Confusion, encephalopathy -- questionable seizures. history of seizures in the past, was on Lamictal at the time and had EEG done a couple of times and it was negative . Thought to be from alcohol withdrawal but neurology advised to be on Lamictal. Patient says he stopped Lamictal several years ago. -- alert oriented x 3 while admitted -- EEG ordered, essentially normal Brain MRI no acute process Neuro consulted Luigi Turk-episode not felt to be seizure, most likely vasovagal 3. Alcoholism -- Alcohol withdrawal protocol ordered Including gabapentin taper -- no signs of overt withdrawal needs 1 more day of Gabapentin PO -- counseled to stop alcohol 4. Tobacco abuse. - counselled to stop smoking - nicotine patch ordered DISPOSITION: ff up with PCP in 3-5 days ff up with Ortho Dr. Evans in 7-10 days Current Inpatient Medications: Current Inpatient Medications Medications (Trade) Dose Ordered Sig/Lindsay Route Start Time Stop Time Status Last Admin Dose Admin Acetaminophen (Tylenol Tab) 650 mg Q4H PRN PO 02/13/18 02:15 03/15/18 02:14 Al Hydrox/Mg Hydrox/Simethicone (Maalox Max Susp) 15 ml Q4H PRN PO 02/13/18 02:15 03/15/18 02:14 Ondansetron HCl (Zofran Inj) 4 mg Q6H PRN IV 02/13/18 02:15 03/15/18 02:14 Nitroglycerin (Nitrostat Tab) 0.4 mg UD PRN SL 02/13/18 02:15 03/15/18 02:14 Polyethylene (Miralax Powder Packet) 17 gm DAILY PRN PO 02/13/18 02:15 03/15/18 02:14 Vancomycin HCl (Consult) 1 ea UD PRN N/A 02/13/18 02:15 03/15/18 02:14 Sodium Chloride 1,000 ml @ 75 mls/hr [id number] IV 02/13/18 05:00 03/15/18 04:59 02/15/18 06:39 75 MLS/HR Thiamine HCl 100 mg/Syringe 10 ml @ 2 mls/min Q24H IV 02/13/18 03:00 03/15/18 02:59 02/15/18 04:13 2 MLS/MIN Lorazepam (Ativan Tab) PRN Dosing -Active Protocol UD PRN PO 02/13/18 02:15 03/15/18 02:14 Multivitamins/ Minerals (Multivitamin W/ Minerals Tab) 1 tab QAM PO 02/13/18 09:00 03/15/18 08:59 02/15/18 08:23 1 TAB Albuterol/ Ipratropium (Duoneb) 3 ml Q4R PRN INH 02/13/18 02:15 03/15/18 02:14 Albuterol (Ventolin Hfa Inhaler) 2 puffs Q4 PRN INH 02/13/18 02:15 03/15/18 02:14 Gabapentin (Neurontin Tab) 600 mg Q24H PO 02/16/18 16:00 02/16/18 16:01 Nicotine (Nicoderm Cq 21MG Patch) 1 patch QAM TD 02/13/18 03:45 03/15/18 03:44 02/15/18 08:24 1 PATCH Miscellaneous (Remove Nicoderm Patch) 1 ea HS N/A 02/13/18 21:00 03/15/18 20:59 02/13/18 21:26 1 EA Lorazepam (Ativan Inj) 1 mg ONE PRN IV 02/13/18 08:15 Lorazepam (Ativan Inj) 0.5 mg Q4H PRN IV 02/13/18 08:15 03/15/18 08:14 Oxycodone HCl (Roxicodone Immediate Rel Tab) `1-2 tabs for pain 1 tab ... Q4HWA PRN PO 02/13/18 16:45 02/27/18 16:44 Gadobutrol (Gadavist) 6 mmol UD PRN IV 02/14/18 15:30 02/18/18 15:29 Vancomycin HCl 1000 mg/Sodium Chloride 270 ml @ 125 mls/hr Q10H IV 02/15/18 16:00 02/23/18 15:59 02/15/18 15:49 125 MLS/HR
[2018-02-15] MEDS ORDERED: NRN600 PO (16:58)
[2018-02-15] MEDS ORDERED: CLIN300C10 PO (16:58)
[2018-02-15] MEDS ORDERED: CNT PO (16:58)
[2018-02-15] MEDS ORDERED: THIA100T27 PO (16:58)
[2018-02-15] MEDS ORDERED: NICO21DI4 TD (16:58)
[2018-02-15] MEDS ORDERED: FLV1 PO (17:00)
--- NOTE | 2018-02-15 17:20 | Discharge Instructions ---
Discharge Instructions Date of Service Feb 15, 2018. Admission Reason for Admission: Seizure, Wound Infection Discharge Discharge Diagnosis / Problem: RIGHT THIRD FINGER INFECTION Discharge Goals Goal(s): Diagnostic testing, Therapeutic intervention Activity Recommendations Activity Limitations: as noted below (Increase activities gradually as tolerated, no heavy exertion) Lifting Limitations: until after follow-up appointment Exercise/Sports Limitations: until after follow-up appointment Driving or Machine Use: No driving until reevaluated by primary care physician . Instructions / Follow-Up Instructions / Follow-Up Please review your new medications and follow instructions carefully. Include yogurt or probiotic daily diet while on antibiotics and at least 1 week after. Ensure adequate daily fluid intake. No alcohol or smoking. Keep incision clean and dry. Daily dressing changes. Call your primary care physician or return to the ER immediately if with recurrence of symptoms, fever/chills, Increasing pain/redness/warmth/discharge from the wound site, or any part of the hand. Follow-up with primary care physician in [facility] [place]: Dr. Holly Toribio on 02/20/18 at 11:00am. [address] [place] [address] , [place] [address] Follow up with Orthopedic Surgeon Dr. Evans in 7-10 days. Current Hospital Diet Patient's current hospital diet: Regular Diet Discharge Diet Recommended Diet: Regular Diet Procedures Procedures Performed: Incision and drainage right third finger Pending Studies Studies pending at discharge: no Medical Emergencies . Who to Call and When: Medical Emergencies: If at any time you feel your situation is an emergency, please call 911 immediately. . Non-Emergent Contact Non-Emergency issues call your: Primary Care Provider, Surgeon Call Non-Emergent contact if: you have a fever, your pain is not controlled, your pain is worsening, your pain is unusual for you, your pain is concerning you, wound has increased drainage, wound has increased redness, wound has increased pain, you have any medication questions . . "Provider Documentation" section prepared by Papito George. . Grounds Person Recommendations Grounds Person Recommendations: Keep incision clean and dry. Daily dressing changes. May resume light duty work until follow up appointment. Follow up with Dr. Evans in 7-10 days. [phone] Antibiotics per medical service recommendations.
--- NOTE | 2018-02-15 17:26 | Discharge Summary ---
Discharge Summary Date of Service Feb 15, 2018. Discharge Summary Admission Date: Feb 13, 2018 at 02:06 Discharge Date: Feb 15, 2018 Discharge Disposition: Home Principal Diagnosis: Right 3rd Digit Cellulitis, MRSA, Foreign Body s/p I&D Secondary Diagnoses/Problems: Please refer to hospital course below. Procedures: 02/13/18: PREOPERATIVE DIAGNOSIS: Abscess, right third finger. POSTOPERATIVE DIAGNOSIS: Abscess, right third finger. PROCEDURE: Incision and drainage with irrigation of right third finger abscess. SURGEON: Dr. Evans. ANESTHESIA: General. COMPLICATIONS: None. R HAND MIN 3 VIEWS ROUTINE HISTORY: 57 years-old Male eval for foreign body in 3rd digit acute right hand pain with concern for foreign body COMPARISON: None available TECHNIQUE: 3 views of the right hand FINDINGS: There is a punctate radiopaque foreign body noted within the ulnar dorsal soft tissues of the third digit at the level of the mid proximal phalanx. Moderate associated soft tissue swelling. There is no acute fracture or dislocation. Mild first carpometacarpal osteoarthritis. Mild degenerative changes are seen within the interphalangeal joints. IMPRESSION: 1. No acute fracture. 2. Punctate foreign body noted within the ulnar dorsal soft tissues of the third digit at the level of the mid proximal phalanx. BRAIN COMBO FOR SEIZURE CLINICAL HISTORY: EtOH related seizures r/o tumor or brain abnormalities COMPARISON STUDY: No previous studies for comparison. TECHNIQUE: Utilizing a 1.5 Randa magnet and dedicated coil, multiplanar, multiecho imaging of the brain was performed pre and postcontrast administration. IV administration of 8 mL of Gadavist contrast was uneventful. Thin cut coronal T2 imaging was performed according to seizure protocol. FINDINGS: Diffusion-weighted images show no evidence for an acute ischemic event. Signal characteristics the cerebellar as well as cerebral hemispheres are unremarkable. No abnormal postcontrast enhancement. Sella and parasellar regions are unremarkable. IMPRESSION: Normal study CHEST ONE VIEW PORTABLE HISTORY: 57 years-old Male Sepsis acute sepsis COMPARISON: None available TECHNIQUE: Portable AP view of the chest FINDINGS: Cardiomediastinal and hilar silhouettes are within normal limits. Mild biapical pleural parenchymal scarring. Lungs are mildly hyperinflated. No pneumothorax, pleural effusion, focal airspace consolidation or overt pulmonary edema. Bones of the chest appear grossly intact. IMPRESSION: No acute process. Consultations: Ortho Dr. Evans, Neuro Dr. Mateer Pending Studies/Follow-Up: Please refer to hospital course below. Medication Reconciliation New Medications: Clindamycin Hcl (Clindamycin Hcl) 300 Mg Cap 1 CAP PO TID for 7 Days, #21 CAP 0 Refills Folic Acid (Folic Acid) 1 Mg Tab 1 TAB PO DAILY for 7 Days, #7 TABS 0 Refills Thiamine HCl (Vitamin B-1) 100 Mg Tab 1 TAB PO DAILY for 7 Days, #7 TAB 0 Refills Gabapentin (Gabapentin) 600 Mg Tab 600 MG PO Q24H for 1 Day, #1 TAB 0 Refills take the medication on 02/16/18 Multivitamins/Minerals (Certavite/Antioxidants) 1 Tab Tab 1 TAB PO QAM for 30 Days Nicotine (Nicoderm Cq) 21 Mg/24 Hr Dis 1 PATCH TD QAM for 7 Days, #7 PATCH 0 Refills Admission Information HPI (per Admitting provider): DATE OF ADMISSION: 02/13/2018 CHIEF COMPLAINT: Right third finger infection. HISTORY OF PRESENT ILLNESS: This is a 57-year-old male with past medical history significant for alcoholism, tobacco abuse, history of questionable seizures and was on Lamictal in the past but no longer taking it for several years now, history of COPD, comes because of right third finger infection. The patient says he was cutting the tree about a week ago and he has got thorn into the finger and he tried to take it with his knife, but finger became swollen and painful. He went to [facility] yesterday but it was taking long time and he just singed out AMA . He says he drinks 1 six-pack beer every weekend, but alcohol level was 100 today when asked about it he said he drank about 4 beers today. Smokes 1 pack of cigarettes every day since age 14. Denies any headache. Denies any fever, chills, no headaches, no blurred vision, no dizziness, no earache, no runny nose, no sore throat, no cough, no difficulty swallowing. No chest pain, no shortness of breath, no fever, no nausea, no vomiting, no abdominal pain. Normal bowel and bladder movements. No blood in the urine, no bloody stools. No recent weight gain or weight loss. No skin rash, no lower extremity edema. But the states that he was confused today, he could not recognize his cat, could not know the time and somewhat disoriented and called ambulance. Before the ambulance came, he had several episodes of shaking his body and legs and staring which lasted for few seconds, currently the patient is alert and oriented and is comfortable and hemodynamically stable. ALLERGIES: ASPIRIN AND PENICILLIN. PAST MEDICAL HISTORY: As mentioned above. PAST SURGICAL HISTORY: Has right knee surgery. MEDICATIONS: Patient is not take any medications. FAMILY HISTORY: No family history is significant. REVIEW OF SYSTEMS: Rest of the review of symptoms negative. Physical Exam (per Admitting): GENERAL: The patient is of moderate build, not in distress. VITAL SIGNS: Temperature 36.9, pulse 63, respiratory rate 16 blood pressure 146/93, temperature 95% room air. HEENT: No pallor, no icterus. Pupils equal, round, reactive. NECK: No JVD or neck masses, no carotid bruits. CARDIOVASCULAR: S1, S2, regular rate and rhythm, no murmur, no gallop. RESPIRATORY SYSTEM: Normal AP diameter No accessory muscle use No wheezing, no crackles. ABDOMEN: Soft, bowel sounds present. Nontender. No distention. CENTRAL NERVOUS SYSTEM: Cranial II through XII intact. Nonfocal extremities. EXTREMITIES: Right middle finger is erythematous, swollen. No drainage is seen. No foul smelling Hospital Course ASSESSMENT AND PLAN: This is a 57-year-old male who presents with right middle finger infection. 1. Right 3rd Digit Cellulitis, MRSA, Foreign Body s/p I&D -- Had thorn in his finger a week ago and he tried to take it out with knife -- Hand xray: 1. No acute fracture. 2. Punctate foreign body noted within the ulnar dorsal soft tissues of the third digit at the level of the mid proximal phalanx. Status post incision and drainage 02/13/[address] Evans Wound drainage cultures positive for MRSA Blood cultures negative so far received Vancomycin IV x 3 days right 3rd digit pain and swelling improved significantly transition to Clindamycin PO x 7 days ff up with Ortho Dr. Evans in 7-10 days ff up with PCP in 3-5 days 2. Confusion, Encephalopathy -- questionable seizures. history of seizures in the past, was on Lamictal at the time and had EEG done a couple of times and it was negative . Thought to be from alcohol withdrawal but neurology advised to be on Lamictal. Patient says he stopped Lamictal several years ago. -- improved alert oriented x 3 while admitted -- EEG ordered, essentially normal Brain MRI no acute process Neuro consulted Luigi Turk-episode not felt to be seizure, most likely vasovagal 3. Alcoholism -- drinks daily -- Alcohol withdrawal protocol ordered Including gabapentin taper -- no signs of overt withdrawal needs 1 more day of Gabapentin PO -- counseled to stop alcohol use 4. Tobacco abuse. - counselled to stop smoking - nicotine patch ordered DISPOSITION: ff up with PCP in 3-5 days ff up with Ortho Dr. Evans in 7-10 days Total time spent on discharge = 40 minutes This includes examination of the patient, discharge planning, medication reconciliation, and communication with other providers. Discharge Instructions Discharge Instructions Date of Service Feb 15, 2018. Admission Reason for Admission: Seizure, Wound Infection Discharge Discharge Diagnosis / Problem: RIGHT THIRD FINGER INFECTION Discharge Goals Goal(s): Diagnostic testing, Therapeutic intervention Activity Recommendations Activity Limitations: as noted below (Increase activities gradually as tolerated, no heavy exertion) Lifting Limitations: until after follow-up appointment Exercise/Sports Limitations: until after follow-up appointment Driving or Machine Use: No driving until reevaluated by primary care physician . Instructions / Follow-Up Instructions / Follow-Up Please review your new medications and follow instructions carefully. Include yogurt or probiotic daily diet while on antibiotics and at least 1 week after. Ensure adequate daily fluid intake. No alcohol or smoking. Keep incision clean and dry. Daily dressing changes. Call your primary care physician or return to the ER immediately if with recurrence of symptoms, fever/chills, Increasing pain/redness/warmth/discharge from the wound site, or any part of the hand. Follow-up with primary care physician in [facility] at [place]: Dr. Holly Toribio on 02/20/18 at 11:00am. [address] [place] [address] Norma Turk, THIERRY [id number] Follow up with Orthopedic Surgeon Dr. Evans in 7-10 days. Current Hospital Diet Patient's current hospital diet: Regular Diet Discharge Diet Recommended Diet: Regular Diet Procedures Procedures Performed: Incision and drainage right third finger Pending Studies Studies pending at discharge: no Medical Emergencies . Who to Call and When: Medical Emergencies: If at any time you feel your situation is an emergency, please call 911 immediately. . Non-Emergent Contact Non-Emergency issues call your: Primary Care Provider, Surgeon Call Non-Emergent contact if: you have a fever, your pain is not controlled, your pain is worsening, your pain is unusual for you, your pain is concerning you, wound has increased drainage, wound has increased redness, wound has increased pain, you have any medication questions . . "Provider Documentation" section prepared by Papito George. . [employer]ician Recommendations [employer] Technician Recommendations: Keep incision clean and dry. Daily dressing changes. May resume light duty work until follow up appointment. Follow up with Dr. Evans in 7-10 days. [phone] Antibiotics per medical service recommendations.
[2018-02-16] MEDS ORDERED: GABAPENTIN 600MG Q24H DOSE PO SCH (16:00)
[2018-02-16] MEDS ORDERED: VANCOMYCIN TROUGH ONE (19:30)
== END 2018-02-15 18:47 | disposition home or self-care (01) | DRG 579 ==
LOC: EDBD 23:44 → C.EDB 23:45 → C.2E 02-13 02:06 → ENRESERV 02-13 02:23
PROVIDERS: ADMIT Internal Medicine; ATTEND Internal Medicine
PROC: 0J9J0ZZ Drainage of Right Hand Subcutaneous Tissue and Fascia, Open Approach (ICD-10-PCS; principal; 2018-02-13 12:00)
DX: L03.011 Cellulitis of right finger (principal); G93.40 Encephalopathy, unspecified; L02.512 Cutaneous abscess of left hand; B95.62 Methicillin resistant Staphylococcus aureus infection as the cause of diseases classified elsewhere; S61.242A Puncture wound with foreign body of right middle finger without damage to nail, initial encounter; F10.20 Alcohol dependence, uncomplicated; J44.9 Chronic obstructive pulmonary disease, unspecified; F17.210 Nicotine dependence, cigarettes, uncomplicated; Z88.0 Allergy status to penicillin; Z88.6 Allergy status to analgesic agent; Z91.018 Allergy to other foods; Z84.89 Family history of other specified conditions

== ENCOUNTER 2025-05-06 19:38 | Inpatient (IN) ==
[2025-05-06] MEDS: OPTIRAY 320 125ml IV ONE (19:41)
--- NOTE | 2025-05-06 19:55 | Emergency Department Note ---
Impression & Plan Stroke-like symptoms, Acute left-sided weakness, Chest pain ED Provider Note Provider: Rai Grossman MD CHIEF COMPLAINT: Responsive, left-sided weakness HISTORY OF PRESENT ILLNESS: Patient is a 64-year-old gentleman presenting via ambulance from the [facility] where he resides. Patient evidently was normal with his daughter and saw her around noon today. Evidently the daughter received a call from him around 6:45 PM this evening and he called out for help. Reportedly evidently the best history of EMS collapsed to the floor and was found there by them minimally responsive to verbal stimuli. More awake and talking some and route here but having significant left arm and prickly left leg weakness. Some rapid speech reported. Reportedly did have a beer earlier but denies significant other usage of drugs. Reports some left upper chest pain. This has evidently been ongoing and was evaluated at [place] recently and recommended for admission or further evaluation which he declined. Denies shortness of breath or nausea or head pain. PAST MEDICAL HISTORY: As noted above MEDICATIONS: None reportedsays he has not seen a doctor regularly in 30 years SOCIAL HISTORY: Resides at the [facility], occasional alcohol PHYSICAL EXAM: GENERAL: alert and oriented in no acute distress on stretcher Head: normocephalic and atraumatic EYES: No injection, discharge or icterus. PERRL, EOMI. NECK: Trachea midline. Supple. ENT: Mucous membranes pink and moist. LUNGS: Airway patent. No retractions. Breath sounds clear HEART: Regular rate and rhythm. No chest wall tenderness ABDOMEN: Soft and non-tender, without guarding or rebound. SKIN: Acyanotic, warm, dry, without rashes EXTREMITIES: Without swelling, tenderness or deformity NEUROLOGICAL: Some aphasia and a little slow to respond. Somewhat garbled. No obvious facial droop. Some strength in the left arm 3 out of 5 with 1 out of 5 strength in the left foot but not able to straight leg raise. Minimal toe wiggle here. Right arm and leg seems 5 out of 5. EK bpm sinus rhythm with premature SVC's. No acute ST segment elevation or depression with a QTc of 443. CONTINUOUS CARDIAC MONITORING: was ordered and showed a heart rate of 50s to 60s bpm in sinus rhythm occasional PACs/SVC's Patient's laboratory studies and imaging reviewed. Differential includes Infection, dehydration, metabolic abnormality, hypo/hyperglycemia, electrolyte disturbance, anemia, hypoxia, cardiac sources, intracerebral event, toxicologic, neurologic, as well as other pathologies. IMPRESSION/MEDICAL DECISION MAKING: Stroke alert based on focal deficits within the last 24 hours. Unfortunately outside of thrombolytic window as almost 7-1/2 hours since last known well. CT of the head as well as CT angiograms of the head and neck as well as a CT of the chest was obtained given his complaints of some left upper chest pain and these neurological symptoms. Medical alcohol blood work and blood cultures were obtained. Entertained broad metabolic infectious and possible stroke workup. Not hypoglycemic here. CT head without acute findings per radiologist. CT angiogram per radiology without acute findings. Discussed with Dr. Ruiz and the CT angiogram of the neck questions a small right ICA dissection flap. CT of the chest per radiology without dissection or other acute abnormality noted. Blood work here without severe electrolyte abnormalities or renal dysfunction. POC blood work with glucose of 66 although original was 86. Given some D10 to ensure not low. Due to concerns he has had a stroke. Discussed with Leena telestroke findings and they evaluated the patient as well. Recommended aspirin and Plavix. Will ensure the patient has an okay swallow for this. Blood work here without leukocytosis or anemia. Troponin elevated and doubt ACS given his ongoing symptoms. Procalcitonin not elevated and again leans against a sepsis/systemic illness picture. Urinalysis is negative as well for signs of infection. No significant severe electrolyte abnormalities or signs of renal dysfunction noted. Urinalysis without findings of infection. Alcohol mildly elevated at 108. Some component of symptoms could be related to this but given the significant focality I do question that he had a stroke. Do not believe at this time this represents seizure. Discussed with him and agreeable to plan to come in for further workup and evaluation. [facility] hospitalist was contacted. DIAGNOSIS: Left-sided weakness/strokelike symptoms, atypical chest pain DISPOSITION: Hospitalist will evaluate Patient was agreeable with this plan. Per his request attempted to contact his daughter Katina at the provided phone number without answer. Did later he had his daughter Thelma on the phone and per his permission update her. Past Med/Surg History Problem List (Updated 05/06/25 @ 21:00 by Rai Grossman M.D.) Chest pain (Acute) Acute left-sided weakness (Acute) Stroke-like symptoms (Acute) Hx of arthroscopy of shoulder Operation Date: 06/02/23 07:45 Actual Procedures p Left Shoulder Arthroscopy, Subscapularis and supraspinatus rotator Cuff Repair, extensive debridement, subacromial Decompression, Open Biceps Tenodesis(Left) - Eric Stuart MD Encounter for pre-operative examination Biceps tendonitis on left Rotator cuff tear Disorder of rotator cuff Seizure Scalp laceration (Acute) Encounter for removal of leslie (Acute) Arm pain, left (Acute) Abscess of finger of right hand Medical History (Updated 05/06/25 @ 21:00 by Rai Grossman M.D.) Chronic obstructive pulmonary disease no inhalers, well controlled per pt Seizure "Only happened twice over 10 years ago", no meds, no neuro Per records "seizure with ETOH use vs pseudo seizures " - Per neuro consultation 2017- on Lamictal at one point- no longer taking; EEGs showed no seizure focus - No issues x years per patient Surgical History (Updated 06/02/23 @ 17:35 by Krystyna Cohn PA-C) Hx of surgical procedure I&D right third finger History of tooth extraction Social History Smoking Status: Current every day smoker Tobacco Type: Cigarettes Cigarettes Per Day: 1 ppd > advised npo status; Second Hand Exposure: No; Do You Dip or Chew Tobacco: No; Hx Alcohol Use: Yes Alcohol type: beer Hx Substance Use: No Preferred Language: Hungarian Communication Ability: Effective Certified Veterinary Technician Required: No Beliefs That Will Affect Care: None Current Living Situation: Spouse Feels Safe at Home: Yes Assistive Devices: Glasses Allergies Allergies Allergy/AdvReac Type Severity Reaction Status Date / Time blueberry Allergy Severe HIVES Verified 06/02/23 06:33 aspirin Allergy Unknown nasal Verified 06/02/23 06:33 bleeding Home Meds Home Medications Medication Instructions Recorded Confirmed albuterol sulfate 90 mcg/actuation 1 - 2 puff inhalation Q6 PRN as 05/06/25 05/06/25 aerosol inhaler (Ventolin HFA) directed Results & Data (ED) Vital Signs Vital Signs - 24 hr 05/06/25 19:34 05/06/25 20:01 05/06/25 20:18 Pulse Rate 62 Pulse Rate [Left Apical] 58 L Pulse Rate from SpO2 Sensor Respiratory Rate 18 21 Respiratory Effort / Characteristics Non-Labored Spontaneous Respiratory Depth Normal Respiratory Pattern Regular Blood Pressure 163/88 H Blood Pressure [Right Arm] 190/121 H Blood Pressure Mean 113 Blood Pressure Mean [Right Arm] 144 Pulse Oximetry 99 100 Oxygen Delivery Method Room Air Room Air Sepsis Recent Fever Within 48 Hours No Sepsis New/Unexplained Change in Mental Status No Sepsis Action Taken by Nursing No Action Required 05/06/25 20:30 05/06/25 20:35 05/06/25 20:46 Pulse Rate 55 L 47 L Pulse Rate [Left Apical] Pulse Rate from SpO2 Sensor Respiratory Rate 19 Respiratory Effort / Characteristics Respiratory Depth Respiratory Pattern Blood Pressure 149/84 H 144/96 H Blood Pressure [Right Arm] Blood Pressure Mean 109 107 Blood Pressure Mean [Right Arm] Pulse Oximetry 99 Oxygen Delivery Method Room Air Sepsis Recent Fever Within 48 Hours Sepsis New/Unexplained Change in Mental Status Sepsis Action Taken by Nursing 05/06/25 21:00 05/06/25 21:09 05/06/25 21:15 Pulse Rate 63 56 L Pulse Rate [Left Apical] Pulse Rate from SpO2 Sensor Respiratory Rate 22 16 Respiratory Effort / Characteristics Respiratory Depth Respiratory Pattern Blood Pressure 137/89 134/87 Blood Pressure [Right Arm] Blood Pressure Mean 107 104 Blood Pressure Mean [Right Arm] Pulse Oximetry 100 98 Oxygen Delivery Method Room Air Room Air Sepsis Recent Fever Within 48 Hours Sepsis New/Unexplained Change in Mental Status Sepsis Action Taken by Nursing 05/06/25 21:21 05/06/25 21:30 05/06/25 21:30 Pulse Rate 54 L 40 L Pulse Rate [Left Apical] Pulse Rate from SpO2 Sensor Respiratory Rate 17 15 Respiratory Effort / Characteristics Respiratory Depth Respiratory Pattern Blood Pressure 160/88 H Blood Pressure [Right Arm] Blood Pressure Mean 110 Blood Pressure Mean [Right Arm] Pulse Oximetry 100 100 Oxygen Delivery Method Room Air Room Air Sepsis Recent Fever Within 48 Hours Sepsis New/Unexplained Change in Mental Status Sepsis Action Taken by Nursing 05/06/25 21:30 05/06/25 21:42 05/06/25 21:45 Pulse Rate 59 L Pulse Rate [Left Apical] Pulse Rate from SpO2 Sensor 57 L Respiratory Rate 17 Respiratory Effort / Characteristics Respiratory Depth Respiratory Pattern Blood Pressure 160/88 H 136/86 Blood Pressure [Right Arm] Blood Pressure Mean 110 92 Blood Pressure Mean [Right Arm] Pulse Oximetry 100 Oxygen Delivery Method Sepsis Recent Fever Within 48 Hours Sepsis New/Unexplained Change in Mental Status Sepsis Action Taken by Nursing 05/06/25 21:45 05/06/25 21:45 05/06/25 21:54 Pulse Rate 54 L 55 L Pulse Rate [Left Apical] Pulse Rate from SpO2 Sensor 55 L 56 L Respiratory Rate 16 14 Respiratory Effort / Characteristics Respiratory Depth Respiratory Pattern Blood Pressure 136/86 Blood Pressure [Right Arm] Blood Pressure Mean 92 Blood Pressure Mean [Right Arm] Pulse Oximetry 100 99 Oxygen Delivery Method Sepsis Recent Fever Within 48 Hours Sepsis New/Unexplained Change in Mental Status Sepsis Action Taken by Nursing Laboratory Data 05/06/25 20:21 05/06/25 20:21 Lab Results 05/06/25 05/06/25 05/06/25 Range/Units 19:57 20:21 20:22 WBC 7.16 (4.8-10.8) K/ul RBC 5.34 (4.70-6.10) M/uL Hgb 15.8 (14.0-18.0) g/dl POC Hgb (14.0-18.0) g/dl Hct 46.3 (42.0-52.0) % POC Hct (42-52) % MCV 86.7 (80.0-100.0) fL MCH 29.6 (25.0-34.0) pg MCHC 34.1 (32.0-36.0) g/dL RDW Std Deviation 46.1 (36.4-46.3) fL RDW Coeff of Michelle 14.6 H (11.5-14.5) % Plt Count 194 (130-400) K/uL MPV 9.3 L (9.4-12.4) fL Immature Gran % (Auto) 0.1 % Neut % (Auto) 44.9 % Lymph % (Auto) 42.5 % Trigg % (Auto) 8.9 % Eos % (Auto) 2.9 % Baso % (Auto) 0.7 % Neut # (Auto) 3.21 (1.40-6.50) K/uL Lymph # (Auto) 3.04 (1.20-3.40) K/uL Trigg # (Auto) 0.64 H (0.11-0.59) K/uL Eos # (Auto) 0.21 (0.00-0.50) K/uL Baso # (Auto) 0.05 (0.00-0.20) K/uL Immature Gran # (Auto) 0.01 (0.01-0.20) K/uL PT 10.8 (9.0-12.0) Seconds INR 1.0 (0.9-1.1) APTT 29 (21-31) Seconds PTT Ratio 1.1 POC Sodium (135-144) mmol/L Sodium 135 L (136-145) mmol/L POC Potassium (3.3-5.0) mmol/L Potassium 3.7 (3.5-5.1) mmol/L POC Chloride (101-112) mmol/L Chloride 101 (98-107) mmol/L Carbon Dioxide 27 (21-32) mmol/L POC Total CO2 (24-31) mmol/L Anion Gap 7 (3-11) POC Anion Gap (16-25) mmol/L POC BUN (7-18) mg/dl BUN 10 (6-23) mg/dl Creatinine 0.85 (0.6-1.4) mg/dl POC Creatinine (0.6-1.3) mg/dl Est Cr Clr Drug Dosing 81.1 ml/min eGFR 98.25 BUN/Creatinine Ratio 11.8 (10-20) Glucose 67 L (70-99(Fasting)) mg/dl POC Glucose 86 (70-99) mg/dl POC Glucose (other) (70-99) mg/dl Lactate 2.0 (0.4-2.0) mmol/L Calcium 9.6 (8.6-10.3) mg/dl POC Ioniz Calcium Uriah (1.12-1.32) mmol/l Magnesium 2.1 (1.7-2.4) mg/dl Total Bilirubin 0.4 (0.2-1.0) mg/dl AST 19 (13-39) U/L ALT 12 (7-52) U/L Alkaline Phosphatase 51 (34-104) U/L Troponin I High Sens 5.9 (0-20) pg/ml Total Protein 7.6 (6.0-8.3) gm/dl Albumin 4.0 (3.4-5.0) gm/dl Globulin 3.6 (2.5-4.0) gm/dl Albumin/Globulin Ratio 1.1 (0.9-2) Procalcitonin < 0.02 (0-0.5) ng/ml TSH 4.517 H (0.300-4.500) uIu/ml Urine Color Urine Appearance (Clear) Urine pH (4.5-7.5) Ur Specific [place] (1.000-1.030) Urine Protein (Negative) Urine Glucose (UA) (Negative) Urine Ketones (Negative) Urine Blood (Negative) Urine Nitrite (Negative) Urine Bilirubin (Negative) Urine Urobilinogen (Negative) Ur Leukocyte Esterase (Negative) Urine WBC (Auto) (0-5) /hpf Urine RBC (Auto) (0-2) /hpf U Hyaline Cast (Auto) (0-2) /lpf U Epithel Cells (Auto) (0-2) /hpf Urine Bacteria (Auto) (None Seen) Urine Comment Urine Opiates Screen (Neg) Ur Methadone, Qual (Neg) Urine Fentanyl Screen (Neg) Urine Barbiturates (Neg) Ur Phencyclidine (PCP) (Neg) U Amphetamin/Meth Scrn (Neg) MDMA (Ecstasy) Screen (Neg) U Benzodiazepines Scrn (Neg) Ur Cocaine Metabolite (Neg) U Marijuana (THC) Screen (Neg) Ethyl Alcohol mg/dL 108.4 H (<10.0) mg/dl Blood Type Antibody Screen 05/06/25 05/06/25 05/06/25 Range/Units 20:24 20:44 21:51 WBC (4.8-10.8) K/ul RBC (4.70-6.10) M/uL Hgb (14.0-18.0) g/dl POC Hgb 16.7 (14.0-18.0) g/dl Hct (42.0-52.0) % POC Hct 49 (42-52) % MCV (80.0-100.0) fL MCH (25.0-34.0) pg MCHC (32.0-36.0) g/dL RDW Std Deviation (36.4-46.3) fL RDW Coeff of Michelle (11.5-14.5) % Plt Count (130-400) K/uL MPV (9.4-12.4) fL Immature Gran % (Auto) % Neut % (Auto) % Lymph % (Auto) % Trigg % (Auto) % Eos % (Auto) % Baso % (Auto) % Neut # (Auto) (1.40-6.50) K/uL Lymph # (Auto) (1.20-3.40) K/uL Trigg # (Auto) (0.11-0.59) K/uL Eos # (Auto) (0.00-0.50) K/uL Baso # (Auto) (0.00-0.20) K/uL Immature Gran # (Auto) (0.01-0.20) K/uL PT (9.0-12.0) Seconds INR (0.9-1.1) APTT (21-31) Seconds PTT Ratio POC Sodium 138 (135-144) mmol/L Sodium (136-145) mmol/L POC Potassium 3.8 (3.3-5.0) mmol/L Potassium (3.5-5.1) mmol/L POC Chloride 99 L (101-112) mmol/L Chloride (98-107) mmol/L Carbon Dioxide (21-32) mmol/L POC Total CO2 26 (24-31) mmol/L Anion Gap (3-11) POC Anion Gap 17.0 (16-25) mmol/L POC BUN 10 (7-18) mg/dl BUN (6-23) mg/dl Creatinine (0.6-1.4) mg/dl POC Creatinine 1.0 (0.6-1.3) mg/dl Est Cr Clr Drug Dosing ml/min eGFR BUN/Creatinine Ratio (10-20) Glucose (70-99(Fasting)) mg/dl POC Glucose 209 H (70-99) mg/dl POC Glucose (other) 66 L* (70-99) mg/dl Lactate (0.4-2.0) mmol/L Calcium (8.6-10.3) mg/dl POC Ioniz Calcium Uriah 1.16 (1.12-1.32) mmol/l Magnesium (1.7-2.4) mg/dl Total Bilirubin (0.2-1.0) mg/dl AST (13-39) U/L ALT (7-52) U/L Alkaline Phosphatase (34-104) U/L Troponin I High Sens (0-20) pg/ml Total Protein (6.0-8.3) gm/dl Albumin (3.4-5.0) gm/dl Globulin (2.5-4.0) gm/dl Albumin/Globulin Ratio (0.9-2) Procalcitonin (0-0.5) ng/ml TSH (0.300-4.500) uIu/ml Urine Color Urine Appearance (Clear) Urine pH (4.5-7.5) Ur Specific [place] (1.000-1.030) Urine Protein (Negative) Urine Glucose (UA) (Negative) Urine Ketones (Negative) Urine Blood (Negative) Urine Nitrite (Negative) Urine Bilirubin (Negative) Urine Urobilinogen (Negative) Ur Leukocyte Esterase (Negative) Urine WBC (Auto) (0-5) /hpf Urine RBC (Auto) (0-2) /hpf U Hyaline Cast (Auto) (0-2) /lpf U Epithel Cells (Auto) (0-2) /hpf Urine Bacteria (Auto) (None Seen) Urine Comment Urine Opiates Screen (Neg) Ur Methadone, Qual (Neg) Urine Fentanyl Screen (Neg) Urine Barbiturates (Neg) Ur Phencyclidine (PCP) (Neg) U Amphetamin/Meth Scrn (Neg) MDMA (Ecstasy) Screen (Neg) U Benzodiazepines Scrn (Neg) Ur Cocaine Metabolite (Neg) U Marijuana (THC) Screen (Neg) Ethyl Alcohol mg/dL (<10.0) mg/dl Blood Type O Positive Antibody Screen NEGATIVE 05/06/25 Range/Units Unknown WBC (4.8-10.8) K/ul RBC (4.70-6.10) M/uL Hgb (14.0-18.0) g/dl POC Hgb (14.0-18.0) g/dl Hct (42.0-52.0) % POC Hct (42-52) % MCV (80.0-100.0) fL MCH (25.0-34.0) pg MCHC (32.0-36.0) g/dL RDW Std Deviation (36.4-46.3) fL RDW Coeff of Michelle (11.5-14.5) % Plt Count (130-400) K/uL MPV (9.4-12.4) fL Immature Gran % (Auto) % Neut % (Auto) % Lymph % (Auto) % Trigg % (Auto) % Eos % (Auto) % Baso % (Auto) % Neut # (Auto) (1.40-6.50) K/uL Lymph # (Auto) (1.20-3.40) K/uL Trigg # (Auto) (0.11-0.59) K/uL Eos # (Auto) (0.00-0.50) K/uL Baso # (Auto) (0.00-0.20) K/uL Immature Gran # (Auto) (0.01-0.20) K/uL PT (9.0-12.0) Seconds INR (0.9-1.1) APTT (21-31) Seconds PTT Ratio POC Sodium (135-144) mmol/L Sodium (136-145) mmol/L POC Potassium (3.3-5.0) mmol/L Potassium (3.5-5.1) mmol/L POC Chloride (101-112) mmol/L Chloride (98-107) mmol/L Carbon Dioxide (21-32) mmol/L POC Total CO2 (24-31) mmol/L Anion Gap (3-11) POC Anion Gap (16-25) mmol/L POC BUN (7-18) mg/dl BUN (6-23) mg/dl Creatinine (0.6-1.4) mg/dl POC Creatinine (0.6-1.3) mg/dl Est Cr Clr Drug Dosing ml/min eGFR BUN/Creatinine Ratio (10-20) Glucose (70-99(Fasting)) mg/dl POC Glucose (70-99) mg/dl POC Glucose (other) (70-99) mg/dl Lactate (0.4-2.0) mmol/L Calcium (8.6-10.3) mg/dl POC Ioniz Calcium Uriah (1.12-1.32) mmol/l Magnesium (1.7-2.4) mg/dl Total Bilirubin (0.2-1.0) mg/dl AST (13-39) U/L ALT (7-52) U/L Alkaline Phosphatase (34-104) U/L Troponin I High Sens (0-20) pg/ml Total Protein (6.0-8.3) gm/dl Albumin (3.4-5.0) gm/dl Globulin (2.5-4.0) gm/dl Albumin/Globulin Ratio (0.9-2) Procalcitonin (0-0.5) ng/ml TSH (0.300-4.500) uIu/ml Urine Color Yellow Urine Appearance Clear (Clear) Urine pH 7.0 (4.5-7.5) Ur Specific [place] <= 1.005 (1.000-1.030) Urine Protein Negative (Negative) Urine Glucose (UA) Negative (Negative) Urine Ketones Negative (Negative) Urine Blood 1+ H (Negative) Urine Nitrite Negative (Negative) Urine Bilirubin Negative (Negative) Urine Urobilinogen Negative (Negative) Ur Leukocyte Esterase Negative (Negative) Urine WBC (Auto) 0-5 (0-5) /hpf Urine RBC (Auto) 0-2 (0-2) /hpf U Hyaline Cast (Auto) 0-2 (0-2) /lpf U Epithel Cells (Auto) 0-2 (0-2) /hpf Urine Bacteria (Auto) None Seen (None Seen) Urine Comment Urine Opiates Screen Neg (Neg) Ur Methadone, Qual Neg (Neg) Urine Fentanyl Screen Neg (Neg) Urine Barbiturates Neg (Neg) Ur Phencyclidine (PCP) Neg (Neg) U Amphetamin/Meth Scrn Neg (Neg) MDMA (Ecstasy) Screen Neg (Neg) U Benzodiazepines Scrn Neg (Neg) Ur Cocaine Metabolite Neg (Neg) U Marijuana (THC) Screen Neg (Neg) Ethyl Alcohol mg/dL (<10.0) mg/dl Blood Type Antibody Screen Administered Medications Potassium Chloride/Sodium Chloride (Normal Saline W/20 Meq Kcl) 20 meq in 1,000 mls @ 75 mls/hr IV .[id number] ONE Stop: 05/07/25 11:07 Last Admin: 05/06/25 22:34 Dose: 75 mls/hr Documented By: JT Discontinued Medications Aspirin (Aspirin Chew 324 Mg) 81 mg PO NOW STA Stop: 05/06/25 21:01 Last Admin: 05/06/25 21:17 Dose: 81 mg Documented By: SANTIAGO Clopidogrel Bisulfate (Clopidogrel Bisulfate 300 Mg Tab) 300 mg PO NOW STA Stop: 05/06/25 21:01 Last Admin: 05/06/25 21:18 Dose: 300 mg Documented By: DEMI Dextrose (Dextrose 10% 250 Ml Bag) 250 ml IV ONCE ONE Stop: 05/06/25 20:55 Last Admin: 05/06/25 21:14 Dose: 250 ml Documented By: EDMI Thiamine HCl 100 mg/ Syringe 10 mls @ 2 mls/min IV NOW STA Stop: 05/06/25 21:39 Last Admin: 05/06/25 22:12 Dose: 2 mls/min Documented By: DEMI Ioversol (Optiray 320 125ml) 115 ml IV ONCE ONE Stop: 05/06/25 19:42 Last Admin: 05/06/25 19:41 Dose: 115 ml Documented By: PATEL Ondansetron HCl (Ondansetron Inj 2 Mg/Ml 2 Ml Vial) Confirm Administered Dose 4 mg .ROUTE .STK-MED ONE Stop: 05/06/25 21:39 Last Admin: 05/06/25 22:11 Dose: Not Given Documented By: DEMI Imaging Data Radiologist's Impression: Chest X-Ray 05/06/25 19:34 Chest radiograph, one view History: Chest pain Comparison: None Findings: Single AP view of the chest performed. No focal consolidation or pleural effusion. No pneumothorax. The cardiomediastinal silhouette is within normal limits. Normal pulmonary vascularity. No evidence for lymphadenopathy. No visualized bony or soft tissue abnormality. Impression: Normal chest radiograph Electronically signed by Link Ruiz 05-06-2025 8:[address] 05/06/25 19:[address] without contrast CT angiogram of the neck CT angiogram of the brain with contrast Provided History: Neuro deficit Comparison: None Technique: HEAD CT: Using multidetector thin collimation helical acquisition technique, axial, coronal and sagittal CT images from the skull base to the vertex were obtained without intravenous contrast. HEAD and NECK CTA: During rapid bolus intravenous injection of nonionic contrast material, axial images were obtained using thin collimation multidetector helical technique from the base of the neck through the of vertex of the head. This CT angiogram data was reconstructed at thin intervals with mild overlap. 3D reconstructions were obtained. The axial source images, multiplanar reformations, 3D reconstructions in both maximum intensity projection display and volume rendered models were reviewed. Dose reduction techniques were achieved by using automatic exposure control and/or adjustment of mA and/or kV according to patient size and/or use of iterative reconstruction technique. Findings: Head CT: There is no intracranial hemorrhage, mass effect, or midline shift. Davidson/white matter differentiation in both cerebral hemispheres is preserved. Ventricles are proportionate to the cerebral sulci. Head CTA demonstrates no aneurysm or stenosis of the major intracranial arteries. Neck CTA demonstrates no stenosis of the major cervical arteries. 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 The origins of the great vessels from the aortic arch are patent. No mass is noted within the visualized portions of the cervical soft tissues or lung apices. Impression: 1. Head CTA demonstrates no aneurysm or stenosis of the major intracranial arteries, 2. Neck CTA demonstrates a thin dissection flap, measuring approximately 2.5 mm in length of the proximal right ICA, without resulting in stenosis or occlusion. Otherwise no stenosis of the major cervical arteries. 3. No intracranial hemorrhage on the noncontrast head CT. Electronically signed by Link Ruiz 05-06-2025 8:16 PM Head CTA 05/06/25 19:[address] without contrast CT angiogram of the neck CT angiogram of the brain with contrast Provided History: Neuro deficit Comparison: None Technique: HEAD CT: Using multidetector thin collimation helical acquisition technique, axial, coronal and sagittal CT images from the skull base to the vertex were obtained without intravenous contrast. HEAD and NECK CTA: During rapid bolus intravenous injection of nonionic contrast material, axial images were obtained using thin collimation multidetector helical technique from the base of the neck through the of vertex of the head. This CT angiogram data was reconstructed at thin intervals with mild overlap. 3D reconstructions were obtained. The axial source images, multiplanar reformations, 3D reconstructions in both maximum intensity projection display and volume rendered models were reviewed. Dose reduction techniques were achieved by using automatic exposure control and/or adjustment of mA and/or kV according to patient size and/or use of iterative reconstruction technique. Findings: Head CT: There is no intracranial hemorrhage, mass effect, or midline shift. Davidson/white matter differentiation in both cerebral hemispheres is preserved. Ventricles are proportionate to the cerebral sulci. Head CTA demonstrates no aneurysm or stenosis of the major intracranial arteries. Neck CTA demonstrates no stenosis of the major cervical arteries. 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 The origins of the great vessels from the aortic arch are patent. No mass is noted within the visualized portions of the cervical soft tissues or lung apices. Impression: 1. Head CTA demonstrates no aneurysm or stenosis of the major intracranial arteries, 2. Neck CTA demonstrates a thin dissection flap, measuring approximately 2.5 mm in length of the proximal right ICA, without resulting in stenosis or occlusion. Otherwise no stenosis of the major cervical arteries. 3. No intracranial hemorrhage on the noncontrast head CT. Electronically signed by Link Ruiz 05-06-2025 8:16 PM Neck CTA 05/06/25 19:[address] without contrast CT angiogram of the neck CT angiogram of the brain with contrast Provided History: Neuro deficit Comparison: None Technique: HEAD CT: Using multidetector thin collimation helical acquisition technique, axial, coronal and sagittal CT images from the skull base to the vertex were obtained without intravenous contrast. HEAD and NECK CTA: During rapid bolus intravenous injection of nonionic contrast material, axial images were obtained using thin collimation multidetector helical technique from the base of the neck through the of vertex of the head. This CT angiogram data was reconstructed at thin intervals with mild overlap. 3D reconstructions were obtained. The axial source images, multiplanar reformations, 3D reconstructions in both maximum intensity projection display and volume rendered models were reviewed. Dose reduction techniques were achieved by using automatic exposure control and/or adjustment of mA and/or kV according to patient size and/or use of iterative reconstruction technique. Findings: Head CT: There is no intracranial hemorrhage, mass effect, or midline shift. Davidson/white matter differentiation in both cerebral hemispheres is preserved. Ventricles are proportionate to the cerebral sulci. Head CTA demonstrates no aneurysm or stenosis of the major intracranial arteries. Neck CTA demonstrates no stenosis of the major cervical arteries. 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 The origins of the great vessels from the aortic arch are patent. No mass is noted within the visualized portions of the cervical soft tissues or lung apices. Impression: 1. Head CTA demonstrates no aneurysm or stenosis of the major intracranial arteries, 2. Neck CTA demonstrates a thin dissection flap, measuring approximately 2.5 mm in length of the proximal right ICA, without resulting in stenosis or occlusion. Otherwise no stenosis of the major cervical arteries. 3. No intracranial hemorrhage on the noncontrast head CT. Electronically signed by Link Ruiz 05-06-2025 8:16 PM Chest CTA 05/06/25 19:41 CT pulmonary angiogram with IV contrast History: Chest pain COMPARISON: None TECHNIQUE: CT angiography of the chest was performed without IV contrast followed by IV contrast, including 3D post processing CTA image reconstruction. Dose reduction techniques were achieved by using automatic exposure control and/or adjustment of mA and/or kV according to patient size and/or use of iterative reconstruction technique. FINDINGS: Diagnostic quality: Adequate There is no evidence for pulmonary embolism. The heart is not enlarged. There is no pericardial effusion. There are no abnormally enlarged hilar or mediastinal lymph nodes. The central tracheobronchial tree is clear. The lungs are clear. There are a few, thin bandlike areas of atelectasis in the lung bases. There is no pleural effusion. Limited visualized upper abdomen. No destructive osseous changes are seen. IMPRESSION: No evidence for pulmonary embolism. Electronically signed by Link Ruiz 05-06-2025 8:21 PM Discharge Plan Visit Data Chief Complaint: Stroke Alert Stated Complaint: STROKE ALERT ED Provider: Rai Grossman Discharge Problem: Stroke-like symptoms, Acute left-sided weakness, Chest pain Patient Disposition: Being Evaluated by Hospitalist Condition: Fair Forms Stand Alone Forms: [employer] Prescriptions Prescriptions: No Action albuterol sulfate [Ventolin HFA] 90 mcg/actuation HFA aerosol inhaler 1 - 2 puff INHALATION Q6 PRN (Reason: as directed) Referrals Referrals: PCP,NO [Primary Care Provider] -
--- NOTE | 2025-05-06 20:16 | CT Scan Report ---
Head CT without contrast CT angiogram of the neck CT angiogram of the brain with contrast Provided History: Neuro deficit Comparison: None Technique: HEAD CT: Using multidetector thin collimation helical acquisition technique, axial, coronal and sagittal CT images from the skull base to the vertex were obtained without intravenous contrast. HEAD and NECK CTA: During rapid bolus intravenous injection of nonionic contrast material, axial images were obtained using thin collimation multidetector helical technique from the base of the neck through the of vertex of the head. This CT angiogram data was reconstructed at thin intervals with mild overlap. 3D reconstructions were obtained. The axial source images, multiplanar reformations, 3D reconstructions in both maximum intensity projection display and volume rendered models were reviewed. Dose reduction techniques were achieved by using automatic exposure control and/or adjustment of mA and/or kV according to patient size and/or use of iterative reconstruction technique. Findings: Head CT: There is no intracranial hemorrhage, mass effect, or midline shift. Davidson/white matter differentiation in both cerebral hemispheres is preserved. Ventricles are proportionate to the cerebral sulci. Head CTA demonstrates no aneurysm or stenosis of the major intracranial arteries. Neck CTA demonstrates no stenosis of the major cervical arteries. 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 The origins of the great vessels from the aortic arch are patent. No mass is noted within the visualized portions of the cervical soft tissues or lung apices. Impression: 1. Head CTA demonstrates no aneurysm or stenosis of the major intracranial arteries, 2. Neck CTA demonstrates a thin dissection flap, measuring approximately 2.5 mm in length of the proximal right ICA, without resulting in stenosis or occlusion. Otherwise no stenosis of the major cervical arteries. 3. No intracranial hemorrhage on the noncontrast head CT. Electronically signed by Link Ruiz 05-06-2025 8:16 PM
--- NOTE | 2025-05-06 20:22 | XRay Report ---
Chest radiograph, one view History: Chest pain Comparison: None Findings: Single AP view of the chest performed. No focal consolidation or pleural effusion. No pneumothorax. The cardiomediastinal silhouette is within normal limits. Normal pulmonary vascularity. No evidence for lymphadenopathy. No visualized bony or soft tissue abnormality. Impression: Normal chest radiograph Electronically signed by Link Ruiz 05-06-2025 8:21 PM
--- NOTE | 2025-05-06 20:22 | CT Scan Report ---
CT pulmonary angiogram with IV contrast History: Chest pain COMPARISON: None TECHNIQUE: CT angiography of the chest was performed without IV contrast followed by IV contrast, including 3D post processing CTA image reconstruction. Dose reduction techniques were achieved by using automatic exposure control and/or adjustment of mA and/or kV according to patient size and/or use of iterative reconstruction technique. FINDINGS: Diagnostic quality: Adequate There is no evidence for pulmonary embolism. The heart is not enlarged. There is no pericardial effusion. There are no abnormally enlarged hilar or mediastinal lymph nodes. The central tracheobronchial tree is clear. The lungs are clear. There are a few, thin bandlike areas of atelectasis in the lung bases. There is no pleural effusion. Limited visualized upper abdomen. No destructive osseous changes are seen. IMPRESSION: No evidence for pulmonary embolism. Electronically signed by Link Ruiz 05-06-2025 8:21 PM
[2025-05-06 20:37] LABS: Hematocrit (blood only) 46.3 % (42.0-52.0); Hemoglobin 15.8 g/dl (14.0-18.0); Immature Granulocytes # (auto) 0.01 K/uL (0.01-0.20); Immature Granulocytes % (auto) 0.1 %; Mean Corpuscular Hemoglobin 29.6 pg (25.0-34.0); Mean Corpuscular Volume 86.7 fL (80.0-100.0); Platelet Count 194 K/uL (130-400); RDW Standard Deviation 46.1 fL (36.4-46.3); Red Blood Count 5.34 M/uL (4.70-6.10); White Blood Count 7.16 K/ul (4.8-10.8)
[2025-05-06 20:50] LABS: Appearance Urine Clear (Clear); Glucose Urine UA Negative (Negative)
[2025-05-06 20:54] LABS: Alanine Aminotransferase 12.0 U/L (7-52); Albumin Globulin Ratio 1.1 (0.9-2); Albumin Level 4.0 gm/dl (3.4-5.0); Alkaline Phosphatase 51.0 U/L (34-104); Anion Gap 7.0 (3-11); Bilirubin,Total 0.4 mg/dl (0.2-1.0); Blood Urea Nitrogen 10.0 mg/dl (6-23); Calcium 9.6 mg/dl (8.6-10.3); Carbon Dioxide 27.0 mmol/L (21-32); Chloride 101.0 mmol/L (98-107); Creatinine Clr Calc Pharmacy 81.1 ml/min; Globulin 3.6 gm/dl (2.5-4.0); Glucose 67.0 mg/dl (70-99(Fasting)); Magnesium 2.1 mg/dl (1.7-2.4); Potassium 3.7 mmol/L (3.5-5.1); Sodium 135.0 mmol/L (136-145); Total Protein 7.6 gm/dl (6.0-8.3)
[2025-05-06 20:57] LABS: Procalcitonin < 0.02 ng/ml (0-0.5)
[2025-05-06 21:05] LABS: Bacteria Urine Automated None Seen (None Seen); Cast Urine Automated 0-2 /lpf (0-2); Epithelial Cell Urine Auto 0-2 /hpf (0-2); RBC Urine Automated 0-2 /hpf (0-2); WBC Urine Automated 0-5 /hpf (0-5)
[2025-05-06 21:10] LABS: INR 1.0 (0.9-1.1); Partial Thromboplastin Time 29 Seconds (21-31); Prothrombin Time 10.8 Seconds (9.0-12.0)
[2025-05-06] MEDS: DEXTROSE 10% 250 ML BAG IV ONE (21:14)
[2025-05-06] MEDS: ASPIRIN CHEW 324 MG PO STA (21:17)
[2025-05-06] MEDS: CLOPIDOGREL BISULFATE 300 MG TAB PO STA (21:18)
[2025-05-06 21:36] LABS: Amphetamines+Metham, Urine Neg (Neg); MDMA (Ecstacy), Urine Neg (Neg); Marijuana, Urine Neg (Neg)
[2025-05-06] MEDS: ONDANSETRON INJ 2 MG/ML 2 ML VIAL ONE (22:11)
[2025-05-06] MEDS: THIAMINE HCL 100 MG in SYRINGE 9 ML IV STA (22:12)
[2025-05-06 22:31] LABS: Thyroid Stimulating Hormone 4.517 uIu/ml (0.300-4.500)
[2025-05-06] MEDS: NSS + 20MEQ KCL 20 MEQ/1,000 ML BAG IV ONE (22:34)
--- NOTE | 2025-05-06 22:40 | History & Physical Report ---
Date of Service May 06, 2025 Assessment & Plan (1) Fall: Plan: Assessment and plan below following discussion of case with ED provider and reviewing patient history/pertinent normal/abnormal diagnostic test results. Multifactorial Acute left ischemic CVA, Possible breakthrough seizure, history seizure disorder, medication noncompliance, ? Hypoglycemia contributory ? 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 Heparin subcu Full code Patient ex- requesting updates providers. Ms. Margot Box, contact #[phone]. Text document was generated using [employer] voice recognition software. It may contain grammatical or spelling errors. Kindly contact undersigned for clarification of any documentation item in question. History of Present Illness Chief Complaint: Chest pain, passing out, left-sided weakness Primary Care Provider: NO PCP History obtained from patient, family, and records. Medical history significant for COPD, seizure disorder, ongoing tobacco/alcohol abuse. Last [facility] confinement 2017 for MRSA abscess right third finger status post I&D. Patient with passing out at home last week. Blank stares as per . Reminiscent of seizures. Patient has not taken Lamictal for more than a decade now due to insurance issues as per family. Patient evaluated at [facility] ER. Heart rate noted to be slow. Patient signed out AGAINST MEDICAL ADVICE. Patient thinks he may have passed out again today causing him to fall down. Not sure if he had seizures. Mild headache symptoms. Central chest pain with some shortness of breath. No unusual cough symptoms. Patient able to call daughter to ask for help. EMS called to patient's home. SBP noted to be 180s. Patient left side noted to be weak. Patient not sure about recent tick bite exposure. Lowest heart rate of 40s documented at the ER. Aspirin and Plavix administered at the ER following Neurology recommendations. 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 Allergies Allergy/AdvReac Type Severity Reaction Status Date / Time blueberry Allergy Severe HIVES Verified 06/02/23 06:33 aspirin Allergy Unknown nasal Verified 06/02/23 06:33 bleeding Home Medications Medication Instructions Recorded Confirmed Type albuterol sulfate 90 mcg/actuation 1 - 2 puff inhalation Q6 PRN as 05/06/25 05/06/25 History aerosol inhaler (Ventolin HFA) directed Past Med/Surg History Problem List (Updated 05/07/25 @ 09:13 by Robert Wagner) Lyme disease HTN (hypertension) Aortic atherosclerosis Premature atrial contractions Bradycardia Fall Chest pain (Acute) Acute left-sided weakness (Acute) Stroke-like symptoms (Acute) Hx of arthroscopy of shoulder Operation Date: 06/02/23 07:45 Actual Procedures p Left Shoulder Arthroscopy, Subscapularis and supraspinatus rotator Cuff Repair, extensive debridement, subacromial Decompression, Open Biceps Tenode sis(Left) - Eric Stuart MD Encounter for pre-operative examination Biceps tendonitis on left Rotator cuff tear Disorder of rotator cuff Seizure Scalp laceration (Acute) Encounter for removal of leslie (Acute) Arm pain, left (Acute) Abscess of finger of right hand Medical History Chronic obstructive pulmonary disease no inhalers, well controlled per pt Seizure "Only happened twice over 10 years ago", no meds, no neuro Per records "seizure with ETOH use vs pseudo seizures " - Per neuro consultation 2017- on Lamictal at one point- no longer taking; EEGs showed no seizure focus - No issues x years per patient Surgical History Hx of surgical procedure I&D right third finger History of tooth extraction Social History Smoking Status: Current every day smoker Tobacco Type: Cigarettes Cigarettes Per Day: 1/2 ppd; Second Hand Exposure: No; Do You Dip or Chew Tobacco: No; Tobacco Cessation Education Requested by Patient: Yes Hx Alcohol Use: Yes Alcohol type: beer Hx Substance Use: No Preferred Language: Monegasque Communication Ability: Effective Grounds Maintenance Supervisor Required: No Beliefs That Will Affect Care: None Current Living Situation: Alone Other Information That Helps Us Care for You: No Feels Safe at Home: Yes Safety Concerns: Feels Safe At This Time Assistive Devices: Glasses Review of Systems Review of Systems: As per HPI, all other systems reviewed and negative Physical Exam Physical Exam: GENERAL: Comfortable, underweight, no respiratory distress SKIN: Normal color, warm HEENT: [place] palpebral conjunctivae, no ptosis, dry buccal mucosa NECK : Supple, no tenderness CHEST : Decreased breath sounds, no tenderness HEART : Bradycardic, no obvious murmurs ABDOMEN: no distention, nontender EXTREMITIES : No LE swelling/tenderness, palpable pulses, no other conspicuous deformities noted NEUROLOGIC : Coherent, no facial asymmetry, MMTs RUE/RLE 4/5, LUE 3/5, LLE 2/5, gait and stance not assessed Results & Data Results & Data Vital Signs (Past 12 Hours) Vital Signs Pulse Pulse Resp BP BP Pulse Ox O2 Del Method 05/06/25 21:54 55 L 14 99 05/06/25 21:45 54 L 16 100 05/06/25 21:45 136/86 05/06/25 21:45 136/86 05/06/25 21:42 59 L 17 100 05/06/25 21:30 160/88 H 05/06/25 21:30 160/88 H 05/06/25 21:30 40 L 15 100 Room Air 05/06/25 21:21 54 L 17 100 Room Air 05/06/25 21:15 134/87 05/06/25 21:09 56 L 16 98 Room Air 05/06/25 21:00 63 22 137/89 100 Room Air 05/06/25 20:46 144/96 H 05/06/25 20:35 47 L 05/06/25 20:30 55 L 19 149/84 H 99 Room Air 05/06/25 20:18 62 21 163/88 H 100 Room Air 05/06/25 20:01 58 L 18 190/121 H 99 Room Air Laboratory Results Laboratory Results WBC 7.16 K/ul (4.8-10.8) 05/06/25 20:21 RBC 5.34 M/uL (4.70-6.10) 05/06/25 20:21 Hgb 15.8 g/dl (14.0-18.0) 05/06/25 20:21 POC Hgb 16.7 g/dl (14.0-18.0) 05/06/25 20:24 Hct 46.3 % (42.0-52.0) 05/06/25 20: POC Hct 49 % (42-52) 05/06/25 20:24 MCV 86.7 fL (80.0-100.0) 05/06/25 20: MCH 29.6 pg (25.0-34.0) 05/06/25 20: MCHC 34.1 g/dL (32.0-36.0) 05/06/25 20: RDW Std Deviation 46.1 fL (36.4-46.3) 05/06/25: RDW Coeff of Michelle 14.6 % (11.5-14.5) H 05/06/25 20: Plt Count 194 K/uL (130-400) 05/06/25 20: MPV 9.3 fL (9.4-12.4) L 05/06/25: Immature Gran % (Auto) 0.1 % 05/06/25: Neut % (Auto) 44.9 % 05/06/25 20: Lymph % (Auto) 42.5 % 05/06/25: [place] % (Auto) 8.9 % 05/06/25 20: Eos % (Auto) 2.9 % 05/06/25: Baso % (Auto) 0.7 % 05/06/25: Neut # (Auto) 3.21 K/uL (1.40-6.50) 05/06/25 20: Lymph # (Auto) 3.04 K/uL (1.20-3.40) 05/06/25 20: [place] # (Auto) 0.64 K/uL (0.11-0.59) H 05/06/25 20: Eos # (Auto) 0.21 K/uL (0.00-0.50) 05/06/25 20: Baso # (Auto) 0.05 K/uL (0.00-0.20) 05/06/25 20: Immature Gran # (Auto) 0.01 K/uL (0.01-0.20) 05/06/25 20: PT 10.8 Seconds (9.0-12.0) 05/06/25 20: INR 1.0 (0.9-1.1) 05/06/25 20: APTT 29 Seconds (21-31) 05/06/25 20: PTT Ratio 1.1 05/06/25 20: POC Sodium 138 mmol/L (135-144) 05/06/25 20: Sodium 135 mmol/L (136-145) L 05/06/25 20: POC Potassium 3.8 mmol/L (3.3-5.0) 05/06/25 20: Potassium 3.7 mmol/L (3.5-5.1) 05/06/25 20: POC Chloride 99 mmol/L (101-112) L 05/06/25 20: Chloride 101 mmol/L (98-107) 05/06/25 20: Carbon Dioxide 27 mmol/L (21-32) 05/06/25: POC Total CO2 26 mmol/L (24-31) 05/06/25 20:24 Anion Gap 7 (3-11) 05/06/25 20: POC Anion Gap 17.0 mmol/L (16-25) 05/06/25 20:24 POC BUN 10 mg/dl (7-18) 05/06/25 20: BUN 10 mg/dl (6-23) 05/06/25: Creatinine 0.85 mg/dl (0.6-1.4) 05/06/25: POC Creatinine 1.0 mg/dl (0.6-1.3) 05/06/25 20: Est Cr Clr Drug Dosing 81.1 ml/min 05/06/25 20: eGFR 98.25 05/06/25 20: BUN/Creatinine Ratio 11.8 (10-20) 05/06/25 20: Glucose 67 mg/dl (70-99(Fasting)) L 05/06/25 20: POC Glucose 209 mg/dl (70-99) H 05/06/25 21:51 POC Glucose (other) 66 mg/dl (70-99) L* 05/06/25 20: Lactate 2.0 mmol/L (0.4-2.0) 05/06/25 20:21 Calcium 9.6 mg/dl (8.6-10.3) 05/06/25 20:21 POC Ioniz Calcium Uriah 1.16 mmol/l (1.12-1.32) 05/06/25 20:24 Magnesium 2.1 mg/dl (1.7-2.4) 05/06/25 20:21 Total Bilirubin 0.4 mg/dl (0.2-1.0) 05/06/25 20:21 AST 19 U/L (13-39) 05/06/25 20:21 ALT 12 U/L (7-52) 05/06/25 20:21 Alkaline Phosphatase 51 U/L (34-104) 05/06/25 20: Troponin I High Sens 5.9 pg/ml (0-20) 05/06/25 20:21 Total Protein 7.6 gm/dl (6.0-8.3) 05/06/25 20:21 Albumin 4.0 gm/dl (3.4-5.0) 05/06/25 20:21 Globulin 3.6 gm/dl (2.5-4.0) 05/06/25 20: Albumin/Globulin Ratio 1.1 (0.9-2) 05/06/25 20: Procalcitonin < 0.02 ng/ml (0-0.5) 05/06/25 20: TSH 4.517 uIu/ml (0.300-4.500) H 05/06/25 20:21 Urine Color Yellow 05/06/25 Unknown Urine Appearance Clear (Clear) 05/06/25 Unknown Urine pH 7.0 (4.5-7.5) 05/06/25 Unknown Ur Specific [place] <= 1.005 (1.000-1.030) 05/06/25 Unknown Urine Protein Negative (Negative) 05/06/25 Unknown Urine Glucose (UA) Negative (Negative) 05/06/25 Unknown Urine Ketones Negative (Negative) 05/06/25 Unknown Urine Blood 1+ (Negative) H 05/06/25 Unknown Urine Nitrite Negative (Negative) 05/06/25 Unknown Urine Bilirubin Negative (Negative) 05/06/25 Unknown Urine Urobilinogen Negative (Negative) 05/06/25 Unknown Ur Leukocyte Esterase Negative (Negative) 05/06/25 Unknown Urine WBC (Auto) 0-5 /hpf (0-5) 05/06/25 Unknown Urine RBC (Auto) 0-2 /hpf (0-2) 05/06/25 Unknown U Hyaline Cast (Auto) 0-2 /lpf (0-2) 05/06/25 Unknown U Epithel Cells (Auto) 0-2 /hpf (0-2) 05/06/25 Unknown Urine Bacteria (Auto) None Seen (None Seen) 05/06/25 Unknown Urine Comment 05/06/25 Unknown Urine Opiates Screen Neg (Neg) 05/06/25 Unknown Ur Methadone, Qual Neg (Neg) 05/06/25 Unknown Urine Fentanyl Screen Neg (Neg) 05/06/25 Unknown Urine Barbiturates Neg (Neg) 05/06/25 Unknown Ur Phencyclidine (PCP) Neg (Neg) 05/06/25 Unknown U Amphetamin/Meth Scrn Neg (Neg) 05/06/25 Unknown MDMA (Ecstasy) Screen Neg (Neg) 05/06/25 Unknown U Benzodiazepines Scrn Neg (Neg) 05/06/25 Unknown Ur Cocaine Metabolite Neg (Neg) 05/06/25 Unknown U Marijuana (THC) Screen Neg (Neg) 05/06/25 Unknown Ethyl Alcohol mg/dL 108.4 mg/dl (<10.0) H 05/06/25 20:22 Blood Type O Positive 05/06/25 20:44 Antibody Screen NEGATIVE 05/06/25 20:44 Impressions Chest X-Ray 05/06/25 19:34 Chest radiograph, one view History: Chest pain Comparison: None Findings: Single AP view of the chest performed. No focal consolidation or pleural effusion. No pneumothorax. The cardiomediastinal silhouette is within normal limits. Normal pulmonary vascularity. No evidence for lymphadenopathy. No visualized bony or soft tissue abnormality. Impression: Normal chest radiograph Electronically signed by Link Ruiz 05-06-2025 8:[address] 05/06/25 19:[address] without contrast CT angiogram of the neck CT angiogram of the brain with contrast Provided History: Neuro deficit Comparison: None Technique: HEAD CT: Using multidetector thin collimation helical acquisition technique, axial, coronal and sagittal CT images from the skull base to the vertex were obtained without intravenous contrast. HEAD and NECK CTA: During rapid bolus intravenous injection of nonionic contrast material, axial images were obtained using thin collimation multidetector helical technique from the base of the neck through the of vertex of the head. This CT angiogram data was reconstructed at thin intervals with mild overlap. 3D reconstructions were obtained. The axial source images, multiplanar reformations, 3D reconstructions in both maximum intensity projection display and volume rendered models were reviewed. Dose reduction techniques were achieved by using automatic exposure control and/or adjustment of mA and/or kV according to patient size and/or use of iterative reconstruction technique. Findings: Head CT: There is no intracranial hemorrhage, mass effect, or midline shift. Davidson/white matter differentiation in both cerebral hemispheres is preserved. Ventricles are proportionate to the cerebral sulci. Head CTA demonstrates no aneurysm or stenosis of the major intracranial arteries. Neck CTA demonstrates no stenosis of the major cervical arteries. 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 The origins of the great vessels from the aortic arch are patent. No mass is noted within the visualized portions of the cervical soft tissues or lung apices. Impression: 1. Head CTA demonstrates no aneurysm or stenosis of the major intracranial arteries, 2. Neck CTA demonstrates a thin dissection flap, measuring approximately 2.5 mm in length of the proximal right ICA, without resulting in stenosis or occlusion. Otherwise no stenosis of the major cervical arteries. 3. No intracranial hemorrhage on the noncontrast head CT. Electronically signed by Link Ruiz 05-06-2025 8:16 PM Head CTA 05/06/25 19:[address] without contrast CT angiogram of the neck CT angiogram of the brain with contrast Provided History: Neuro deficit Comparison: None Technique: HEAD CT: Using multidetector thin collimation helical acquisition technique, axial, coronal and sagittal CT images from the skull base to the vertex were obtained without intravenous contrast. HEAD and NECK CTA: During rapid bolus intravenous injection of nonionic contrast material, axial images were obtained using thin collimation multidetector helical technique from the base of the neck through the of vertex of the head. This CT angiogram data was reconstructed at thin intervals with mild overlap. 3D reconstructions were obtained. The axial source images, multiplanar reformations, 3D reconstructions in both maximum intensity projection display and volume rendered models were reviewed. Dose reduction techniques were achieved by using automatic exposure control and/or adjustment of mA and/or kV according to patient size and/or use of iterative reconstruction technique. Findings: Head CT: There is no intracranial hemorrhage, mass effect, or midline shift. Davidson/white matter differentiation in both cerebral hemispheres is preserved. Ventricles are proportionate to the cerebral sulci. Head CTA demonstrates no aneurysm or stenosis of the major intracranial arteries. Neck CTA demonstrates no stenosis of the major cervical arteries. 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 The origins of the great vessels from the aortic arch are patent. No mass is noted within the visualized portions of the cervical soft tissues or lung apices. Impression: 1. Head CTA demonstrates no aneurysm or stenosis of the major intracranial arteries, 2. Neck CTA demonstrates a thin dissection flap, measuring approximately 2.5 mm in length of the proximal right ICA, without resulting in stenosis or occlusion. Otherwise no stenosis of the major cervical arteries. 3. No intracranial hemorrhage on the noncontrast head CT. Electronically signed by Link Ruiz 05-06-2025 8:16 PM Neck CTA 05/06/25 19:[address] without contrast CT angiogram of the neck CT angiogram of the brain with contrast Provided History: Neuro deficit Comparison: None Technique: HEAD CT: Using multidetector thin collimation helical acquisition technique, axial, coronal and sagittal CT images from the skull base to the vertex were obtained without intravenous contrast. HEAD and NECK CTA: During rapid bolus intravenous injection of nonionic contrast material, axial images were obtained using thin collimation multidetector helical technique from the base of the neck through the of vertex of the head. This CT angiogram data was reconstructed at thin intervals with mild overlap. 3D reconstructions were obtained. The axial source images, multiplanar reformations, 3D reconstructions in both maximum intensity projection display and volume rendered models were reviewed. Dose reduction techniques were achieved by using automatic exposure control and/or adjustment of mA and/or kV according to patient size and/or use of iterative reconstruction technique. Findings: Head CT: There is no intracranial hemorrhage, mass effect, or midline shift. Davidson/white matter differentiation in both cerebral hemispheres is preserved. Ventricles are proportionate to the cerebral sulci. Head CTA demonstrates no aneurysm or stenosis of the major intracranial arteries. Neck CTA demonstrates no stenosis of the major cervical arteries. 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 The origins of the great vessels from the aortic arch are patent. No mass is noted within the visualized portions of the cervical soft tissues or lung apices. Impression: 1. Head CTA demonstrates no aneurysm or stenosis of the major intracranial arteries, 2. Neck CTA demonstrates a thin dissection flap, measuring approximately 2.5 mm in length of the proximal right ICA, without resulting in stenosis or occlusion. Otherwise no stenosis of the major cervical arteries. 3. No intracranial hemorrhage on the noncontrast head CT. Electronically signed by Link Ruiz 05-06-2025 8:16 PM Chest CTA 05/06/25 19:41 CT pulmonary angiogram with IV contrast History: Chest pain COMPARISON: None TECHNIQUE: CT angiography of the chest was performed without IV contrast followed by IV contrast, including 3D post processing CTA image reconstruction. Dose reduction techniques were achieved by using automatic exposure control and/or adjustment of mA and/or kV according to patient size and/or use of iterative reconstruction technique. FINDINGS: Diagnostic quality: Adequate There is no evidence for pulmonary embolism. The heart is not enlarged. There is no pericardial effusion. There are no abnormally enlarged hilar or mediastinal lymph nodes. The central tracheobronchial tree is clear. The lungs are clear. There are a few, thin bandlike areas of atelectasis in the lung bases. There is no pleural effusion. Limited visualized upper abdomen. No destructive osseous changes are seen. IMPRESSION: No evidence for pulmonary embolism. Electronically signed by Link Ruiz 05-06-2025 8:21 PM Diagnostic Findings EKG as per my interpretation :Rate 65, NSR, normal axis, T wave abnormalities septal leads, PVCs
[2025-05-06] MEDS ORDERED: ATROPINE SULFATE 0.1 MG/ML 10ML SYR IV PRN (22:47)
[2025-05-06] MEDS ORDERED: PHARMACIST DISCHARGE MED REC CONSULT PRN (22:48)
[2025-05-06] MEDS ORDERED: LORazepam Inj 1 MG in SYRINGE 0.5 ML IV PRN ×2 (22:49→22:52)
[2025-05-06] MEDS ORDERED: PROMETHAZINE 6.25 MG/50.25 ML BAG IV PRN (22:54)
[2025-05-06] MEDS ORDERED: ALBUT/IPRATROP 3MG/0.5MG NEB 3 ML VIAL NEB PRN (22:55)
[2025-05-06] MEDS: NICOTINE 14 MG/24 HR PATCH TD SCH (23:02)
[2025-05-06 23:06] LABS: T4 Free Thyroxine 0.86 ng/dl (0.61-1.60)
[2025-05-06 23:48] LABS: Lyme Screen Rflx Confirmation Positive (Negative)
[2025-05-06] MEDS: GADOBUTROL 65ML VIAL IV ONE (23:49)
[2025-05-07 00:30] LABS: Lyme Ab IgG 2nd Tier Confirm Negative (Negative); Lyme Ab IgM 2nd Tier Confirm Positive (Negative)
--- NOTE | 2025-05-07 00:59 | Magnetic Resonance Report ---
Exam(s): MRI HEAD W/WO Contrast IV Amt: 6ml rianna EXAM: MR Head Without and With Intravenous Contrast CLINICAL HISTORY: Reason for exam: poss sz. TECHNIQUE: Magnetic resonance images of the head/brain without and with intravenous contrast in multiple planes. CONTRAST: Patient received 6ml rianna of IV contrast COMPARISON: Prior head CT from May 06, 2025. FINDINGS: Brain: There is edema in the left hippocampus. No mass. No hemorrhage. No acute infarct. The flow voids at the base the brain are intact. No evidence of abnormal enhancement. The dural venous sinuses are patent. No evidence of heterotopic edwards matter or cortical dysplasia. Ventricles: Unremarkable. No ventriculomegaly. Bones/joints: Unremarkable. No acute fracture. Sinuses: Chronic ethmoid sinusitis. No acute sinusitis. Mastoid air cells: Unremarkable as visualized. No mastoid effusion. Orbits: Unremarkable as visualized. IMPRESSION: Edema in the left hippocampus concerning for postictal edema. Electronically signed by: Anju Miramontes MD 05/07/25 00:58 AM
[2025-05-07] MEDS: HEPARIN SOD 5,000 UNIT/0.5 ML VIAL SQ SCH (05:30)
[2025-05-07 06:23] LABS: Hematocrit (blood only) 43.0 % (42.0-52.0); Hemoglobin 14.7 g/dl (14.0-18.0); Immature Granulocytes # (auto) 0.01 K/uL (0.01-0.20); Immature Granulocytes % (auto) 0.2 %; Mean Corpuscular Hemoglobin 29.5 pg (25.0-34.0); Mean Corpuscular Volume 86.2 fL (80.0-100.0); Platelet Count 171 K/uL (130-400); RDW Standard Deviation 46.1 fL (36.4-46.3); Red Blood Count 4.99 M/uL (4.70-6.10); White Blood Count 5.08 K/ul (4.8-10.8)
[2025-05-07 06:52] LABS: Anion Gap 6.0 (3-11); Blood Urea Nitrogen 9.0 mg/dl (6-23); Calcium 8.9 mg/dl (8.6-10.3); Carbon Dioxide 25.0 mmol/L (21-32); Chloride 108.0 mmol/L (98-107); Cholesterol 171.0 mg/dl (0-200); Creatinine Clr Calc Pharmacy 77.7 ml/min; Glucose 84.0 mg/dl (70-99(Fasting)); HDL Cholesterol 50.0 mg/dl; Potassium 4.1 mmol/L (3.5-5.1); Sodium 139.0 mmol/L (136-145); Triglycerides 121.0 mg/dl (0-150)
[2025-05-07] MEDS: cefTRIAXone SODIUM 2,000 MG/50 ML BAG IV SCH (07:23)
[2025-05-07] MEDS: ASPIRIN 81 MG ECTAB PO SCH (08:09)
[2025-05-07] MEDS: CLOPIDOGREL BISULFATE 75 MG TAB PO SCH (08:09)
[2025-05-07] MEDS: levETIRAcetam 500 MG TAB PO SCH (08:10)
[2025-05-07] MEDS: FOLIC ACID 1 MG TAB PO SCH (08:10)
[2025-05-07] MEDS: MULTIVITAMIN TAB PO SCH (08:11)
[2025-05-07] MEDS: THIAMINE HCL 100 MG TAB PO SCH (08:11)
[2025-05-07] MEDS: REMOVE NICODERM PATCH SCH (08:46)
--- NOTE | 2025-05-07 08:50 | Cardiology Consultation ---
Date of Consultation May 07, 2025 Assessment & Plan (1) Seizure: (2) Bradycardia: (3) Premature atrial contractions: (4) Aortic atherosclerosis: (5) HTN (hypertension): (6) Lyme disease: Plan Seizure. As per Hospitalist Service Lyme disease. As per Hospitalist Service Bradycardia. Chronic, preoperative EKG on May 23, 2023 notable for sinus bradycardia at 45 bpm with premature atrial complexes Probable incidental finding. Telemetry this admission benign thus far Continue telemetry while hospitalized Outpatient ambulatory athletic monitor x 14 days for patient telemetry benign Aortic atherosclerosis. Recommend aspirin 81 mg/day. Recommend statin therapy, see below. Dyslipidemia. LDL cholesterol 97 mg/dL this admission. Recommend targeting an LDL cholesterol goal less than 70 mg/dL. Add atorvastatin 20 mg/day. Tobacco use. Cessation advised. Supervising Physician Co-Signing Physician Notes Patient seen and examined. Past medical history, surgical history, social history and family history have been reviewed. The medical record and all the above studies have been reviewed. Case DW JENIFER including management. 05/07/25 ECHO Interpretation Summary Left ventricular systolic function is normal. Left Ventricular Ejection Fraction = 50-55%. Grade I diastolic dysfunction, (abnormal relaxation pattern). There is mild mitral regurgitation. There is mild tricuspid regurgitation. The interatrial septum is intact with no evidence for an atrial septal defect. Injection of contrast documented no interatrial shunt. Seizure disorder Sinus bradycardia - no high grade AV block, asymptomatic, with h/o asymptomatic bradycardia as well HLD Active smoker Suspected Lyme disease abx as per hospitalist correct and f/u electrolytes ASA statin continue Telemetry while inpatient f/u with Neurology avoid hypovolemia keep patient euvolemic DVT prophylaxis smoking cessation OP Zoll History of Present Illness Reason for Consultation: Symptomatic bradycardia Requesting Physician: [facility] Hospitalist Service, Dr. Ma Attending Physician: [facility] Hospitalist Service, Dr. hBarti Sawant MD History of Present Illness Kendall Luz is a 64-year-old male refugee of medical care who experienced a syncopal episode last week. Patient notes that his ex- found him passed out. Patient describes being evaluated at the [facility] ER, with concerns for possible CVA, leaving against medical advise. No records are available from [facility] at this time. Yesterday patient got up to use the restroom and became very dizzy. He was able to call his daughter who lives upstairs. The next thing he recalls is being at [facility]. Patient carries a history of seizure disorder previously felt to be secondary to alcoholism, previously treated with Lamictal. Cardiology consultation requested secondary to possible symptomatic bradycardia. Testing for Lyme suggestive of active infection. IV ceftriaxone prescribed on admission. TSH minimally elevated. EKG with sinus rhythm with frequent premature supraventricular complexes, QTc 443 ms. Personal review of the patient's continuous monitoring specialist reveals bradycardia into the 50s, with premature atrial complexes, without significant bradycardia or pauses. Current rhythm is sinus at 72 bpm. Preoperative EKG on May 23, 2023 notable for sinus bradycardia at 45 bpm with premature atrial complexes Past Medical and Surgical History Seizure disorder Chronic alcohol use/abuse COPD Chronic tobacco use/abuse I&D of the right third finger, MRSA abscess Left rotator cuff repair Right knee surgery Family History: Mother with CAD, passing 1 week following CABG x 3. Father's history unknown. 9 siblings, 4 remaining, details unknown. Sister with a heart murmur. Social History: Smoker since the age of 10, currently smoking 1/2 pack/day. Alcohol: 3 cans of beer per day. No illegal/illicit drug use. Works part-time for [employer]. Resides at the [place] and in [place], daughter residing [facility] [place] Allergies Allergy/AdvReac Type Severity Reaction Status Date / Time blueberry Allergy Severe HIVES Verified 06/02/23 06:33 aspirin Allergy Unknown nasal Verified 06/02/23 06:33 bleeding Home Medications Medication Instructions Recorded Confirmed Type albuterol sulfate 90 mcg/actuation 1 - 2 puff inhalation Q6 PRN as 05/06/25 05/06/25 History aerosol inhaler (Ventolin HFA) directed Patient History Medical History Chronic obstructive pulmonary disease no inhalers, well controlled per pt Seizure "Only happened twice over 10 years ago", no meds, no neuro Per records "seizure with ETOH use vs pseudo seizures " - Per neuro consultation 2018- on Lamictal at one point- no longer taking; EEGs showed no seizure focus - No issues x years per patient Surgical History Hx of surgical procedure I&D right third finger History of tooth extraction Social History Smoking Status: Current every day smoker Tobacco Type: Cigarettes Cigarettes Per Day: 1/2 ppd; Second Hand Exposure: No; Do You Dip or Chew Tobacco: No; Tobacco Cessation Education Requested by Patient: Yes Hx Alcohol Use: Yes Alcohol type: beer Hx Substance Use: No Preferred Language: Slovenian Communication Ability: Effective Rn Orthopedic Required: No Beliefs That Will Affect Care: None Current Living Situation: Alone Other Information That Helps Us Care for You: No Feels Safe at Home: Yes Safety Concerns: Feels Safe At This Time Assistive Devices: None Review of Systems Review of Systems: Complete Review of Systems: Constitutional: No fevers. No chills. No night sweats. HEENT: No history of amaurosis fugax. Pulmonary: Lifelong smoker. COPD. No history of PE. Cardiac: Denies history of [place], CHF, arrhythmia, heart murmur, rheumatic fever, or scarlet fever GI/Abd: Occasional GERD Denies kidney problems. Denies liver problems. Denies history of pancreatic issues. Vascular: Denies history of TIA/CVA Hematologic: Denies coagulation disorder, abnormal bleeding n Musculoskeletal: Arthritis Skin: No rash. No tick bites Neurologic: Seizure disorder. Endocrine: Denies diabetes or thyroid trouble Complete Review of Systems is as stated above, negative, or noncontributory Physical Exam Physical Exam: General: A&Ox3. NAD. Skin: Multiple tattoos. No overt rash. HENT: Normocephalic. Atraumatic. Eyes: PER. Conjunctiva pink, sclera clear. Neck: No carotid bruits. No JVD. Heart: Irregular with occasional ectopic beat, 70 bpm. No murmur. Lungs: Diminished. Decreased. Dry bibasilar crackles. No wheeze. Abdomen: +BS. Soft. Nontender. No masses or organomegaly. Extremities: No clubbing, cyanosis, or edema. Limited neurological examination is without focal deficits. Pulses: radial=2/4, posterior tibial=0/4 bilaterally. Results & Data Vital Signs (Past 12 Hours) Vital Signs Temp Pulse Pulse Resp BP BP Pulse Ox 05/07/25 07:59 36.0 C L 67 16 127/75 93 05/07/25 05:00 37.1 C 53 L 12 121/67 92 05/07/25 01:51 36.4 C L 45 L 12 154/87 H 98 05/07/25 01:32 48 L 05/07/25 01:30 05/07/25 01:30 36.4 C L 45 L 12 154/87 H 98 05/07/25 00:32 47 L 16 122/74 99 05/06/25 23:08 36.4 C L 60 16 135/83 99 05/06/25 21:54 55 L 14 99 05/06/25 21:45 54 L 16 100 05/06/25 21:45 136/86 05/06/25 21:45 136/86 05/06/25 21:42 59 L 17 100 05/06/25 21:30 160/88 H 05/06/25 21:30 160/88 H 05/06/25 21:30 40 L 15 100 05/06/25 21:21 54 L 17 100 05/06/25 21:15 134/87 05/06/25 21:09 56 L 16 98 05/06/25 21:00 63 22 137/89 100 O2 Del Method 05/07/25 07:59 Room Air 05/07/25 05:00 Room Air 05/07/25 01:51 Room Air 05/07/25 01:32 05/07/25 01:30 Room Air 05/07/25 01:30 Room Air 05/07/25 00:32 Room Air 05/06/25 23:08 Room Air 05/06/25 21:54 05/06/25 21:45 05/06/25 21:45 05/06/25 21:45 05/06/25 21:42 05/06/25 21:30 05/06/25 21:30 05/06/25 21:30 Room Air 05/06/25 21:21 Room Air 05/06/25 21:15 05/06/25 21:09 Room Air 05/06/25 21:00 Room Air Laboratory Results Cardiac Enzymes 05/06/25 Range/Units 20:21 AST 19 (13-39) U/L Troponin I High Sens 5.9 (0-20) pg/ml Coagulation 05/06/25 Range/Units 20:21 PT 10.8 (9.0-12.0) Seconds APTT 29 (21-31) Seconds Lipids 05/07/25 Range/Units 05:39 Triglycerides 121 (0-150) mg/dl Cholesterol 171 (0-200) mg/dl HDL Cholesterol 50 mg/dl Cholesterol/HDL Ratio 3.4 (0-5) CBC 05/06/25 05/07/25 Range/Units 20:21 05:39 WBC 7.16 5.08 (4.8-10.8) K/ul RBC 5.34 4.99 (4.70-6.10) M/uL Hgb 15.8 14.7 (14.0-18.0) g/dl Hct 46.3 43.0 (42.0-52.0) % Plt Count 194 171 (130-400) K/uL Neut # (Auto) 3.21 2.29 (1.40-6.50) K/uL Lymph # (Auto) 3.04 2.01 (1.20-3.40) K/uL [place] # (Auto) 0.64 H 0.50 (0.11-0.59) K/uL Eos # (Auto) 0.21 0.22 (0.00-0.50) K/uL Baso # (Auto) 0.05 0.05 (0.00-0.20) K/uL Comprehensive Metabolic Panel 05/06/25 05/07/25 Range/Units 20:21 05:39 Sodium 135 L 139 (136-145) mmol/L Potassium 3.7 4.1 (3.5-5.1) mmol/L Chloride 101 108 H (98-107) mmol/L Carbon Dioxide 27 25 (21-32) mmol/L BUN 10 9 (6-23) mg/dl Creatinine 0.85 0.80 (0.6-1.4) mg/dl Glucose 67 L 84 (70-99(Fasting)) mg/dl Calcium 9.6 8.9 (8.6-10.3) mg/dl AST 19 (13-39) U/L ALT 12 (7-52) U/L Alkaline Phosphatase 51 (34-104) U/L Total Protein 7.6 (6.0-8.3) gm/dl Albumin 4.0 (3.4-5.0) gm/dl Intake and Output 05/06/25 05/07/25 05/07/25 22:59 06:59 14:59 Intake Total 125 / 125 50 / 50 Output Total 500 / 500 Balance -375 / -375 50 / 50 Intake: IV 50 / 50 cefTRIAXone SODIUM 2,000 mg In 50 / 50 50 ml @ 100 mls/hr IV Q24H [facility] Rx#:[id number] Oral 125 / 125 Output: Urine 500 / 500 Other: Weight 63.6 kg 57.4 kg Weight Measurement Method Built in Bedscale Built in 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 I spent a total of 75 minutes on the date of service in preparation, delivery, and documentation of the care provided to this patient excluding any time spent in the performance of separately billed services. This visit was a split-shared visit with the king bstantive portion of the medical decision making performed by the supervising multimedia authoring specialist/billing provider. Coding Level of Care Code 26965 IN/OBS CONSULT LVL 5,80M Diagnoses Seizure R56.9 Bradycardia R00.1 Premature atrial contractions I49.1 Aortic atherosclerosis I70.0 HTN (hypertension) I10 Lyme disease A69.20
[2025-05-07] MEDS ORDERED: ATORVASTATIN 40 MG TAB PO SCH (09:00)
--- NOTE | 2025-05-07 09:20 | XCELERA ---
[id number] \\[id number]
--- NOTE | 2025-05-07 12:04 | Hospitalist Progress Note ---
Date of Service May 07, 2025 Assessment & Plan (1) Fall: Plan: 64 yo M w/ PMH of COPD, seizure disorder, ongoing tobacco/alcohol abuse, MRSA infection presents w/ c/o passing out and Left side weakness. Per pt's friend Margot (ex ), pt has been passing out at home last week, w/ blank stares reminiscent of seizures. Pt has not taken seizure meds since . He was evaled at [facility] ER, from where he signed out AGAINST MEDICAL ADVICE. He passed out again on the day of arrival 05/06 causing him to fall, hence presented to [facility] ED. Patient able to call daughter to ask for help. SBP noted to be 180s at presentation. Patient left side noted to be weak. Lowest heart rate of 40s documented at the ER. Aspirin and Plavix administered at the ER following Neurology recommendations. Acute left ischemic CVA Possible breakthrough seizure, history seizure disorder, medication noncompliance, ? Hypoglycemia contributory Dissection right ICA Patient comes in with complaint of recurrent blank stares and passing out in the last 1 week. 05/06 he noted left-sided weakness and fell down. CTA head/CT head/CTA neck reviewed. CTA neck demonstrated thin dissection flap 2.5 mm in length of the proximal right ICA without resulting any stenosis or occlusion. Rest of the imagings with no acute findings. Brain MRI: Edema in the left hippocampus concerning for postictal edema. Echo with EF of 50 to 55%, LV systolic function is normal. LDL 97, will get A1c in a.m. add statin Continue with neurochecks, continue with DAPT, avoid omeprazole while on Plavix. Keppra for seizure prophylaxis for now, Seizure precautions, Ativan as needed for active seizures Neurology consulted, await recommendation. Possible Zio patch monitoring upon discharge. EEG sent. Obtain records from recent [facility] ER visit ? 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 Possible lyme disease Patient comes in with passing out, heart rate noted to be in 40s at presentation. Troponin negative. Lyme screen positive. Echo as above, continue with telemonitoring. Atropine as needed symptomatic bradycardia Cardiology consulted, await recommendation. Ceftriaxone for possible Lyme carditis COPD, chronic cough symptoms ongoing tobacco/alcohol abuse, Encouraged alcohol and tobacco cessation. SERA S at risk protocol, DT precautions. last alc drink on 10/19 evening (pt reports he is slowly cutting down on drinking). Nicotine patch Malnutrition, low BMI, Nutrition consult DVT prophylaxis. Heparin subcu Full code PT/OT. Patient ex- Ms. Margot Box, contact #[phone]. Text document was generated using [employer] voice recognition software. It may contain grammatical or spelling errors. Kindly contact undersigned for clarification of any documentation item in question. Admission and Anticipated Discharge Date Admission Date: May 06, 2025 Subjective Patient was seen and examined at bedside. Patient was sitting up in bed, on room air, NAD, resting comfortably. Patient's friend/ex- was at bedside who was also updated on plan of care. Patient denies fever/sore throat/chest pain/acute changes in bowel or bladder habits/nausea/vomiting. Patient reports eating okay, reports cough at baseline. Patient denies any new neurological signs or symptoms of weakness. Physical Exam Physical Exam: GENERAL: Comfortable, underweight, no respiratory distress SKIN: Normal color, warm HEENT: [place] palpebral conjunctivae, no ptosis, moist buccal mucosa NECK : Supple, no tenderness CHEST : Decreased breath sounds, no tenderness HEART : Bradycardic, no obvious murmurs ABDOMEN: no distention, nontender EXTREMITIES : No LE swelling/tenderness, palpable pulses, no other conspicuous deformities noted NEUROLOGIC : Coherent, no facial asymmetry, No slurring of speech, MMTs RUE/RLE 5/5, LUE 4/5, LLE 4/5, gait and stance not assessed Results & Data Results & Data Vital Signs (Past 12 Hours) Vital Signs Temp Pulse Pulse Resp BP Pulse Ox O2 Del Method 05/07/25 11:04 36.3 C L 50 L 16 134/90 97 Room Air 05/07/25 10:36 Room Air 05/07/25 07:59 36.0 C L 67 16 127/75 93 Room Air 05/07/25 05:00 37.1 C 53 L 12 121/67 92 Room Air 05/07/25 01:51 36.4 C L 45 L 12 154/87 H 98 Room Air 05/07/25 01:32 48 L 05/07/25 01:30 Room Air 05/07/25 01:30 36.4 C L 45 L 12 154/87 H 98 Room Air 05/07/25 00:32 47 L 16 122/74 99 Room Air
--- NOTE | 2025-05-07 16:06 | Neurology Consultation ---
Date of Consultation May 07, 2025 Assessment & Plan (1) Spontaneous dissection of internal carotid artery: MRI brain negative for stroke. -continue aspirin 81 mg daily -containing clopidogrel 75 mg daily for at least 3 months -patient will need repeat CT angiogram of the neck in 3 months prior to stopping clopidogrel - recommendfollow up in Neurology Clinic in 3 months (2) Seizure: I am unable to confirm the patient's seizure semiology as the patient does not remember and I am not able to reach his ex- who witnessed the event. However, given his history of prior seizures, I agree with treating this episode. -follow up results of EEG - continue Keppra 500 mg twice daily I discussed my recommendations with Dr. Bharti Sawant via tiger text. Thank you for this consult. Please call with questions. Telehealth Consultation Telehealth Information Telehealth Information: I performed this visit using a real-time telehealth connection between my location and the patients originating location ([facility]). After connecting through interactive tele-video, patient was identified by name and date of and/or wristband check.Patient (or authorized healthcare automobile sales representative) was informed that this was a telemedicine visit and it was being conducted confidentially over secure lines. My office door was closed and no one else was present in the room with me.Patient (or authorized healthcare automobile sales representative) provided consent to proceed with the visit, expressed an understanding of privacy and security of the telemedicine visit, and gave permission to have a hospital automobile sales representative in the room in order to assist with the visit and to conduct portions of the visit, as needed. I informed the patient (or authorized healthcare automobile sales representative) that I reviewed their record and presented the opportunity for them to ask any questions regarding the visit today. The patient agreed to participate. History of Present Illness Reason for Consultation: Concern for seizure, right ICA dissection Attending Physician: Bharti Sawant MD History of Present Illness Kendall Luz is a 64-year-old male who presents to [facility] Emergency Department on 05/06/2025 with reported concern for seizure. The patient is a poor historian and unable to tell me his past medical history or history of present illness. I did call his ex- to obtain collateral history but there was no answer. No opportunity to leave voice message. Per chart review, the patient has a past medical history of seizure disorder not on antiepileptic medication, COPD, and tobacco use half pack per day. In the Emergency Department, MRI brain was obtained which showed left hippocampal edema concerning for postictal edema. I personally reviewed the images and I agree with this read. CTA head and neck reveals a right ICA dissection. TTE 05/07/2025 reveals LVEF 50-55%, normal left atrium, no PFO, no thrombus. The patient smokes a half pack of cigarettes per day. He drinks 3-4 beers per day. He denies alcohol withdrawal seizures. He reports a history of head trauma and seizures in childhood approximately 3-4 years old. He tells me he has had 1 seizure in the past. he denies history of meningitis, stroke, tumor, or structural abnormality. At baseline, he is independent with eating, bathing, walking, driving, and finances. Allergies Allergy/AdvReac Type Severity Reaction Status Date / Time blueberry Allergy Severe HIVES Verified 06/02/23 06:33 aspirin Allergy Unknown nasal Verified 06/02/23 06:33 bleeding Home Medications Medication Instructions Recorded Confirmed Type albuterol sulfate 90 mcg/actuation 1 - 2 puff inhalation Q6 PRN as 05/06/25 05/06/25 History aerosol inhaler (Ventolin HFA) directed Patient History Medical History Chronic obstructive pulmonary disease no inhalers, well controlled per pt Seizure "Only happened twice over 10 years ago", no meds, no neuro Per records "seizure with ETOH use vs pseudo seizures " - Per neuro consultation 2017- on Lamictal at one point- no longer taking; EEGs showed no seizure focus - No issues x years per patient Surgical History Hx of surgical procedure I&D right third finger History of tooth extraction Social History Smoking Status: Current every day smoker Tobacco Type: Cigarettes Cigarettes Per Day: 1/2 ppd; Second Hand Exposure: No; Do You Dip or Chew Tobacco: No; Tobacco Cessation Education Requested by Patient: Yes Hx Alcohol Use: Yes Alcohol type: beer Hx Substance Use: No Preferred Language: Beninese Communication Ability: Effective Cyber Defense Forensics Analyst Required: No Beliefs That Will Affect Care: None Current Living Situation: Alone Other Information That Helps Us Care for You: No Feels Safe at Home: Yes Safety Concerns: Feels Safe At This Time Assistive Devices: None Review of Systems ROS reviewed and negative except as above Physical Exam HEENT: No tongue bite Mental status: Alert and oriented, lying in bed Cranial nerves: Extraocular movements intact and spontaneous, face appears symmetric, hearing intact, no gaze deviation Strength: Antigravity without drift in all extremities Sensation: no numbness Results & Data Vital Signs (Past 12 Hours) Vital Signs Temp Pulse Resp BP Pulse Ox O2 Del Method 05/07/25 15:47 36.7 C 59 L 18 121/88 95 Room Air 05/07/25 11:04 36.3 C L 50 L 16 134/90 97 Room Air 05/07/25 10:36 Room Air 05/07/25 07:59 36.0 C L 67 16 127/75 93 Room Air 05/07/25 05:00 37.1 C 53 L 12 121/67 92 Room Air Laboratory Results 05/06/25 20:44 Aerobic Blood Culture - Pending Blood Anaerobic Blood Culture - Pending 05/06/25 20:21 Aerobic Blood Culture - Pending Blood Anaerobic Blood Culture - Pending 05/07/25 05/07/25 05/06/25 07:20 05:39 Unknown WBC 5.08 RBC 4.99 Hgb 14.7 POC Hgb Hct 43.0 POC Hct MCV 86.2 MCH 29.5 MCHC 34.2 RDW Std Deviation 46.1 RDW Coeff of Michelle 14.6 H Plt Count 171 MPV 9.7 Immature Gran % (Auto) 0.2 Neut % (Auto) 45.1 Lymph % (Auto) 39.6 [place] % (Auto) 9.8 Eos % (Auto) 4.3 Baso % (Auto) 1.0 Neut # (Auto) 2.29 Lymph # (Auto) 2.01 [place] # (Auto) 0.50 Eos # (Auto) 0.22 Baso # (Auto) 0.05 Immature Gran # (Auto) 0.01 PT INR APTT PTT Ratio POC Sodium Sodium 139 POC Potassium Potassium 4.1 POC Chloride Chloride 108 H Carbon Dioxide 25 POC Total CO2 Anion Gap 6 POC Anion Gap POC BUN BUN 9 Creatinine 0.80 POC Creatinine Est Cr Clr Drug Dosing 77.7 eGFR 100.06 BUN/Creatinine Ratio 11.3 Glucose 84 POC Glucose POC Glucose (other) Lactate Calcium 8.9 POC Ioniz Calcium Uriah Magnesium Total Bilirubin AST ALT Alkaline Phosphatase Troponin I High Sens Total Protein Albumin Globulin Albumin/Globulin Ratio Triglycerides 121 Cholesterol 171 LDL Cholesterol, Calc 97 VLDL Cholesterol, Calc 24 HDL Cholesterol 50 Cholesterol/HDL Ratio 3.4 Procalcitonin TSH Free T4 Urine Color Yellow Urine Appearance Clear Urine pH 7.0 Ur Specific [place] <= 1.005 Urine Protein Negative Urine Glucose (UA) Negative Urine Ketones Negative Urine Blood 1+ H Urine Nitrite Negative Urine Bilirubin Negative Urine Urobilinogen Negative Ur Leukocyte Esterase Negative Urine WBC (Auto) 0-5 Urine RBC (Auto) 0-2 U Hyaline Cast (Auto) 0-2 U Epithel Cells (Auto) 0-2 Urine Bacteria (Auto) None Seen Urine Comment Nasal Screen MRSA (PCR) Negative Urine Opiates Screen Neg Ur Methadone, Qual Neg Urine Fentanyl Screen Neg Urine Barbiturates Neg Ur Phencyclidine (PCP) Neg U Amphetamin/Meth Scrn Neg MDMA (Ecstasy) Screen Neg U Benzodiazepines Scrn Neg Ur Cocaine Metabolite Neg U Marijuana (THC) Screen Neg Ethyl Alcohol mg/dL Lyme Disease Screen Lyme Tier 2 IgG Confirm Lyme Tier 2 IgM Confirm Blood Type Antibody Screen 05/06/25 05/06/25 05/06/25 21:51 20:44 20:24 WBC RBC Hgb POC Hgb 16.7 Hct POC Hct 49 MCV MCH MCHC RDW Std Deviation RDW Coeff of Michelle Plt Count MPV Immature Gran % (Auto) Neut % (Auto) Lymph % (Auto) [place] % (Auto) Eos % (Auto) Baso % (Auto) Neut # (Auto) Lymph # (Auto) [place] # (Auto) Eos # (Auto) Baso # (Auto) Immature Gran # (Auto) PT INR APTT PTT Ratio POC Sodium 138 Sodium POC Potassium 3.8 Potassium POC Chloride 99 L Chloride Carbon Dioxide POC Total CO2 26 Anion Gap POC Anion Gap 17.0 POC BUN 10 BUN Creatinine POC Creatinine 1.0 Est Cr Clr Drug Dosing eGFR BUN/Creatinine Ratio Glucose POC Glucose 209 H POC Glucose (other) 66 L* Lactate Calcium POC Ioniz Calcium Uriah 1.16 Magnesium Total Bilirubin AST ALT Alkaline Phosphatase Troponin I High Sens Total Protein Albumin Globulin Albumin/Globulin Ratio Triglycerides Cholesterol LDL Cholesterol, Calc VLDL Cholesterol, Calc HDL Cholesterol Cholesterol/HDL Ratio Procalcitonin TSH Free T4 Urine Color Urine Appearance Urine pH Ur Specific [place] Urine Protein Urine Glucose (UA) Urine Ketones Urine Blood Urine Nitrite Urine Bilirubin Urine Urobilinogen Ur Leukocyte Esterase Urine WBC (Auto) Urine RBC (Auto) U Hyaline Cast (Auto) U Epithel Cells (Auto) Urine Bacteria (Auto) Urine Comment Nasal Screen MRSA (PCR) Urine Opiates Screen Ur Methadone, Qual Urine Fentanyl Screen Urine Barbiturates Ur Phencyclidine (PCP) U Amphetamin/Meth Scrn MDMA (Ecstasy) Screen U Benzodiazepines Scrn Ur Cocaine Metabolite U Marijuana (THC) Screen Ethyl Alcohol mg/dL Lyme Disease Screen Lyme Tier 2 IgG Confirm Lyme Tier 2 IgM Confirm Blood Type O Positive Antibody Screen NEGATIVE 05/06/25 05/06/25 05/06/25 20:22 20:21 19:57 WBC 7.16 RBC 5.34 Hgb 15.8 POC Hgb Hct 46.3 POC Hct MCV 86.7 MCH 29.6 MCHC 34.1 RDW Std Deviation 46.1 RDW Coeff of Michelle 14.6 H Plt Count 194 MPV 9.3 L Immature Gran % (Auto) 0.1 Neut % (Auto) 44.9 Lymph % (Auto) 42.5 [place] % (Auto) 8.9 Eos % (Auto) 2.9 Baso % (Auto) 0.7 Neut # (Auto) 3.21 Lymph # (Auto) 3.04 [place] # (Auto) 0.64 H Eos # (Auto) 0.21 Baso # (Auto) 0.05 Immature Gran # (Auto) 0.01 PT 10.8 INR 1.0 APTT 29 PTT Ratio 1.1 POC Sodium Sodium 135 L POC Potassium Potassium 3.7 POC Chloride Chloride 101 Carbon Dioxide 27 POC Total CO2 Anion Gap 7 POC Anion Gap POC BUN BUN 10 Creatinine 0.85 POC Creatinine Est Cr Clr Drug Dosing 81.1 eGFR 98.25 BUN/Creatinine Ratio 11.8 Glucose 67 L POC Glucose 86 POC Glucose (other) Lactate 2.0 Calcium 9.6 POC Ioniz Calcium Uriah Magnesium 2.1 Total Bilirubin 0.4 AST 19 ALT 12 Alkaline Phosphatase 51 Troponin I High Sens 5.9 Total Protein 7.6 Albumin 4.0 Globulin 3.6 Albumin/Globulin Ratio 1.1 Triglycerides Cholesterol LDL Cholesterol, Calc VLDL Cholesterol, Calc HDL Cholesterol Cholesterol/HDL Ratio Procalcitonin < 0.02 TSH 4.517 H Free T4 0.86 Urine Color Urine Appearance Urine pH Ur Specific [place] Urine Protein Urine Glucose (UA) Urine Ketones Urine Blood Urine Nitrite Urine Bilirubin Urine Urobilinogen Ur Leukocyte Esterase Urine WBC (Auto) Urine RBC (Auto) U Hyaline Cast (Auto) U Epithel Cells (Auto) Urine Bacteria (Auto) Urine Comment Nasal Screen MRSA (PCR) Urine Opiates Screen Ur Methadone, Qual Urine Fentanyl Screen Urine Barbiturates Ur Phencyclidine (PCP) U Amphetamin/Meth Scrn MDMA (Ecstasy) Screen U Benzodiazepines Scrn Ur Cocaine Metabolite U Marijuana (THC) Screen Ethyl Alcohol mg/dL 108.4 H Lyme Disease Screen Positive H Lyme Tier 2 IgG Confirm Negative Lyme Tier 2 IgM Confirm Positive H Blood Type Antibody Screen Diagnostic Findings Head CT 05/06/25 19:[address] without contrast Impression: 1. Head CTA demonstrates no aneurysm or stenosis of the major intracranial arteries, 2. Neck CTA demonstrates a thin dissection flap, measuring approximately 2.5 mm in length of the proximal right ICA, without resulting in stenosis or occlusion. Otherwise no stenosis of the major cervical arteries. 3. No intracranial hemorrhage on the noncontrast head CT. Electronically signed by Link Ruiz 05-06-2025 8:16 PM Head Neck CTA 05/06/25 19:34 Impression: 1. Head CTA demonstrates no aneurysm or stenosis of the major intracranial arteries, 2. Neck CTA demonstrates a thin dissection flap, measuring approximately 2.5 mm in length of the proximal right ICA, without resulting in stenosis or occlusion. Otherwise no stenosis of the major cervical arteries. 3. No intracranial hemorrhage on the noncontrast head CT. Electronically signed by Link Ruiz 05-06-2025 8:16 PM Brain MRI 05/06/25 22:48 IMPRESSION: Edema in the left hippocampus concerning for postictal edema. Electronically signed by: Anju Miramontes MD 05/07/25 00:58 AM Medications Administered Home Medications Medication Instructions Recorded Confirmed Last Taken albuterol sulfate 90 mcg/actuation 1 - 2 puff inhalation Q6 PRN as 05/06/25 05/06/25 Unknown aerosol inhaler (Ventolin HFA) directed Active Medications Generic Name Dose Route Start Last Admin Trade Name Freq PRN Reason Stop Dose Admin Aspirin 81 mg 05/07/25 09:00 05/07/25 08:09 Aspirin 81 Mg Ectab PO 06/06/25 08:59 81 mg QAM JAMSHID Administration Clopidogrel Bisulfate 75 mg 05/07/25 09:00 05/07/25 08:09 Clopidogrel Bisulfate 75 Mg Tab PO 06/06/25 08:59 75 mg QAM JAMSHID Administration Folic Acid 1 mg 05/07/25 09:00 05/07/25 08:10 Folic Acid 1 Mg Tab PO 06/06/25 08:59 1 mg QAM JAMSHID Administration Heparin Sodium (Porcine) 5,000 units 05/07/25 06:00 05/07/25 13:32 Heparin Sod 5,000 Unit/0.5 Ml Vial SQ 06/06/25 05:59 5,000 units Q8 JAMSHID Administration Ceftriaxone Sodium 2,000 mg in 50 mls @ 100 mls/hr 05/07/25 06:30 05/07/25 08:46 Rocephin IV 05/17/25 06:29 Infused Q24H JAMSHID Infusion Levetiracetam 500 mg 05/07/25 09:00 05/07/25 08:10 Levetiracetam 500 Mg Tab PO 06/06/25 08:59 500 mg BID JAMSHID Administration Miscellaneous 1 each 05/07/25 08:59 05/07/25 08:46 Remove Nicoderm Patch N/A 06/06/25 08:58 Not Given DAILY@0859 JAMSHID Multivitamins 1 tab 05/07/25 09:00 05/07/25 08:11 Multivitamin Tab PO 06/06/25 08:59 1 tab QAM JAMSHID Administration Nicotine 1 patch 05/06/25 22:50 05/06/25 23:02 Nicotine 14 Mg/24 Hr Patch TD 06/05/25 22:49 1 patch HS JAMSHID Administration Thiamine HCl 100 mg 05/07/25 09:00 05/07/25 08:11 Thiamine Hcl 100 Mg Tab PO 06/06/25 08:59 100 mg QAM JAMSHID Administration
[2025-05-08 00:03] VITALS: TEMP 98.1
--- NOTE | 2025-05-08 05:44 | Electrocardiogram Report ---
Test Reason : Blood Pressure : */* mmHG Vent. Rate : 64 BPM Atrial Rate : 64 BPM P-R Int : 144 ms QRS Dur : 76 ms QT Int : 430 ms P-R-T Axes : 73 79 78 degrees QTcB Int : 443 ms Sinus rhythm with Premature atrial complexes Otherwise normal ECG When compared with ECG of 23-May-2023 13:38, QT has lengthened Confirmed by Subhash Burnham ([id number]) on 05/08/2025 5:44:05 AM Referred By: REFERRED SELF Confirmed By: Subhash Burnham
[2025-05-08 06:12] LABS: Hematocrit (blood only) 44.4 % (42.0-52.0); Hemoglobin 15.1 g/dl (14.0-18.0); Immature Granulocytes # (auto) 0.01 K/uL (0.01-0.20); Immature Granulocytes % (auto) 0.2 %; Mean Corpuscular Hemoglobin 29.5 pg (25.0-34.0); Mean Corpuscular Volume 86.9 fL (80.0-100.0); Platelet Count 172 K/uL (130-400); RDW Standard Deviation 47.2 fL (36.4-46.3); Red Blood Count 5.11 M/uL (4.70-6.10); White Blood Count 5.32 K/ul (4.8-10.8)
[2025-05-08 06:35] LABS: Anion Gap 7.0 (3-11); Blood Urea Nitrogen 16.0 mg/dl (6-23); Calcium 8.8 mg/dl (8.6-10.3); Carbon Dioxide 23.0 mmol/L (21-32); Chloride 110.0 mmol/L (98-107); Creatinine Clr Calc Pharmacy 68.3 ml/min; Glucose 89.0 mg/dl (70-99(Fasting)); Magnesium 2.0 mg/dl (1.7-2.4); Potassium 4.0 mmol/L (3.5-5.1); Sodium 140.0 mmol/L (136-145)
--- NOTE | 2025-05-08 06:37 | Electroencephalogram ---
EEG Procedure Note Date of Service May 07, 2025 Start / End Times Start Time: 0130 End Time: [address] Hay History A 64 yo M w staring spells and possible seizures. EEG performed for evaluation of epileptiform activity. Home Medication List Medication Instructions Recorded Confirmed Type albuterol sulfate 90 mcg/actuation 1 - 2 puff inhalation Q6 PRN as 05/06/25 05/06/25 History aerosol inhaler (Ventolin HFA) directed Inpatient Medication List Aspirin (Aspirin 81 Mg Ectab) 81 mg PO QAM [facility] Stop: 06/06/25 08:59 Last Admin: 05/07/25 08:09 Dose: 81 mg Documented By: delmy Clopidogrel Bisulfate (Clopidogrel Bisulfate 75 Mg Tab) 75 mg PO QAM [facility] Stop: 06/06/25 08:59 Last Admin: 05/07/25 08:09 Dose: 75 mg Documented By: delmy Folic Acid (Folic Acid 1 Mg Tab) 1 mg PO QAM [facility] Stop: 06/06/25 08:59 Last Admin: 05/07/25 08:10 Dose: 1 mg Documented By: delmy Heparin Sodium (Porcine) (Heparin Sod 5,000 Unit/0.5 Ml Vial) 5,000 units SQ Q8 [facility] Stop: 06/06/25 05:59 Last Admin: 05/08/25 06:26 Dose: Not Given Documented By: Admin: 05/07/25 20:12 Dose: Not Given Documented By: Admin: 05/07/25 13:32 Dose: 5,000 units Documented By: Admin: 05/07/25 05:30 Dose: 5,000 units Documented By: SANAM Ceftriaxone Sodium (Rocephin) 2,000 mg in 50 mls @ 100 mls/hr IV Q24H [facility] Stop: 05/17/25 06:29 Last Admin: 05/08/25 06:26 Dose: 100 mls/hr Documented By: Infusion: 05/07/25 08:46 Dose: Infused Documented By: Admin: 05/07/25 07:23 Dose: 100 mls/hr Documented By: SANAM Levetiracetam (Levetiracetam 500 Mg Tab) 500 mg PO BID [facility] Stop: 06/06/25 08:59 Last Admin: 05/07/25 20:11 Dose: 500 mg Documented By: Admin: 05/07/25 08:10 Dose: 500 mg Documented By: delmy Miscellaneous (Remove Nicoderm Patch) 1 each N/A DAILY@0859 [facility] Stop: 06/06/25 08:58 Last Admin: 05/07/25 08:46 Dose: Not Given Documented By: VENKATESH [facility]ivitamins ([facility]ivitamin Tab) [facility] Stop: 06/06/25 08:59 Last Admin: 05/07/25 08:11 Dose: 1 tab Documented By: delmy Nicotine (Nicotine 14 Mg/24 Hr Patch) 1 patch TD HS [facility] Stop: 06/05/25 22:49 Last Admin: 05/07/25 20:12 Dose: 1 patch Documented By: Admin: 05/06/25 23:02 Dose: 1 patch Documented By: LORRAINE Thiamine HCl (Thiamine Hcl 100 Mg Tab) 100 mg PO QAM [facility] Stop: 06/06/25 08:59 Last Admin: 05/07/25 08:11 Dose: 100 mg Documented By: delmy Discontinued Medications Aspirin (Aspirin Chew 324 Mg) 81 mg PO NOW STA Stop: 05/06/25 21:01 Last Admin: 05/06/25 21:17 Dose: 81 mg Documented By: DEMI Clopidogrel Bisulfate (Clopidogrel Bisulfate 300 Mg Tab) 300 mg PO NOW STA Stop: 05/06/25 21:01 Last Admin: 05/06/25 21:18 Dose: 300 mg Documented By: DEMI Dextrose (Dextrose 10% 250 Ml Bag) 250 ml IV ONCE ONE Stop: 05/06/25 20:55 Last Admin: 05/06/25 21:14 Dose: 250 ml Documented By: DEMI Gadobutrol (Gadobutrol 65ml Vial) 6 ml IV ONCE ONE Stop: 05/06/25 23:49 Last Admin: 05/06/25 23:49 Dose: 6 ml Documented By: KIRSTEN Thiamine HCl 100 mg/ Syringe 10 mls @ 2 mls/min IV NOW STA Stop: 05/06/25 21:39 Last Admin: 05/06/25 22:12 Dose: 2 mls/min Documented By: DEMI Potassium Chloride/Sodium Chloride (Normal Saline W/20 Meq Kcl) 20 meq in 1,000 mls @ 75 mls/hr IV .[id number] ONE Stop: 05/07/25 11:07 Last Infusion: 05/07/25 11:11 Dose: Infused Documented By: Admin: 05/06/25 22:34 Dose: 75 mls/hr Documented By: LORRAINE Ioversol (Optiray 320 125ml) 115 ml IV ONCE ONE Stop: 05/06/25 19:42 Last Admin: 05/06/25 19:41 Dose: 115 ml Documented By: PATEL Levetiracetam (Levetiracetam 500 Mg/5 Ml Vial) 1,000 mg IV NOW STA Stop: 05/06/25 22:40 Last Admin: 05/06/25 23:02 Dose: 1,000 mg Documented By: LORRAINE Ondansetron HCl (Ondansetron Inj 2 Mg/Ml 2 Ml Vial) Confirm Administered Dose 4 mg .ROUTE .STK-MED ONE Stop: 05/06/25 21:39 Last Admin: 05/06/25 22:11 Dose: Not Given Documented By: DEMI Description This is a 21 electrode EEG with a single channel dedicated to limited EKG. The electrodes were placed in accordance with the International 10-20 system. REPORT: At the onset of the EEG, the patient is awake. The background activity consist of 10 Hz, persistent, posteriorly dominant, moderate amplitude, symmetric and rhythmic activity that is reactive to eye opening. Anteriorly, it consist of a mixture of low voltage indeterminate activity and 15-25 Hz, persistent, low amplitude, symmetric and rhythmic activity. Stepwise intermittent photic stimulation (1-21 Hz) does not induce any abnormalities. Drowsiness is characterized by low amplitude mixed frequency activity, roving eye movements, and decreased eye blinking and muscle artifact. Interpretation IMPRESSION: This is a normal awake and drowsy routine EEG. There is no evidence of focal slowing or epileptiform activity.
[2025-05-08] MEDS: ATORVASTATIN 40 MG TAB PO SCH (09:22)
[2025-05-08] MEDS: NICOTINE 14 MG/24 HR PATCH TD SCH (11:11)
--- NOTE | 2025-05-08 12:45 | Cardiology Progress Note ---
Date of Service May 08, 2025 Assessment & Plan (1) Seizure: (2) Bradycardia: (3) Premature atrial contractions: (4) Aortic atherosclerosis: (5) HTN (hypertension): (6) Lyme disease: Plan 64 Y M Seizure disorder Asymptomatic sinus bradycardia - no high grade AV block, asymptomatic, with h/o asymptomatic bradycardia as well HLD Active smoker Suspected Lyme disease R ICA thin dissection flap with no stenosis - Vascular eval -> DW hospitalist abx as per hospitalist ASA statin no rate slowing meds f/u with Neurology avoid hypovolemia keep patient euvolemic DVT prophylaxis smoking cessation OP Zoll stable from card standpoint f/u in cardiology clinic post discharge please recall if needed will sign off Admission and Anticipated Discharge Date Admission Date: May 06, 2025 Subjective Patient on exam is sitting in chair in NAD; no c/o cp, sob, palpitations, dizziness, LOC Review of Systems Review of Systems: Complete Review of Systems: Constitutional: No fevers. No chills. No night sweats. HEENT: No history of amaurosis fugax. Pulmonary: Lifelong smoker. COPD. No history of PE. Cardiac: Denies history of OR, CHF, arrhythmia, heart murmur, rheumatic fever, or scarlet fever GI/Abd: Occasional GERD Denies kidney problems. Denies liver problems. Denies history of pancreatic issues. Vascular: Denies history of TIA/CVA Hematologic: Denies coagulation disorder, abnormal bleeding n Musculoskeletal: Arthritis Skin: No rash. No tick bites Neurologic: Seizure disorder. Endocrine: Denies diabetes or thyroid trouble Complete Review of Systems is as stated above, negative, or noncontributory Physical Exam Physical Exam: General: A&Ox3. NAD. Skin: No overt rash. HENT: Normocephalic. Atraumatic. Eyes: Conjunctiva pink, sclera clear. Neck: No carotid bruits. No JVD. Heart: S1 S2, No murmur. Lungs: no rales, No wheeze. Abdomen: +BS. Soft. Nontender. No masses or organomegaly. Extremities: No cyanosis, or edema. Limited neurological examination is without focal deficits. Results & Data Vital Signs (Past 12 Hours) Vital Signs Vital Signs Temp 36.7 C 05/08/25 03:27 Pulse 59 L 05/08/25 03:27 Resp 17 05/08/25 03:27 BP 112/74 05/08/25 03:27 Pulse Ox 95 05/08/25 03:27 O2 Del Method Room Air 05/08/25 10:09 Intake & Output 05/07/25 05/08/25 05/08/25 18:59 06:59 18:59 Intake Total 1530 / 2350 820 / 2350 Output Total 2 / 502 500 / 502 Balance 1528 / 1848 320 / 1848 Weight 57.4 kg 58.627 kg Intake: IV 1050 / 1100 50 / 1100 Nss + 20Meq KCl 20 meq In 1,000 1000 / 1000 ml @ 75 mls/hr IV .[id number] ONE Rx#:[id number] cefTRIAXone SODIUM 2,000 mg In 50 / 100 50 / 100 50 ml @ 100 mls/hr IV Q24H [facility] Rx#:[id number] Oral 480 / 1250 770 / 1250 Output: Urine 2 / 502 500 / 502 Other: # Unmeasured Voids 1 Weight Measurement Method Built in [facility] Temp Pulse Resp BP Pulse Ox O2 Del Method 05/08/25 10:09 Room Air 05/08/25 03:27 36.7 C 59 L 17 112/74 95 Room Air Laboratory Results Laboratory Results - last 48 hr 05/06/25 05/06/25 05/06/25 19:57 20:21 20:22 WBC 7.16 RBC 5.34 Hgb 15.8 POC Hgb Hct 46.3 POC Hct MCV 86.7 MCH 29.6 MCHC 34.1 RDW Std Deviation 46.1 RDW Coeff of Michelle 14.6 H Plt Count 194 MPV 9.3 L Immature Gran % (Auto) 0.1 Neut % (Auto) 44.9 Lymph % (Auto) 42.5 [place] % (Auto) 8.9 Eos % (Auto) 2.9 Baso % (Auto) 0.7 Neut # (Auto) 3.21 Lymph # (Auto) 3.04 [place] # (Auto) 0.64 H Eos # (Auto) 0.21 Baso # (Auto) 0.05 Immature Gran # (Auto) 0.01 PT 10.8 INR 1.0 APTT 29 PTT Ratio 1.1 POC Sodium Sodium 135 L POC Potassium Potassium 3.7 POC Chloride Chloride 101 Carbon Dioxide 27 POC Total CO2 Anion Gap 7 POC Anion Gap POC BUN BUN 10 Creatinine 0.85 POC Creatinine Est Cr Clr Drug Dosing 81.1 eGFR 98.25 BUN/Creatinine Ratio 11.8 Glucose 67 L POC Glucose 86 POC Glucose (other) Lactate 2.0 Calcium 9.6 POC Ioniz Calcium Uriah Phosphorus Magnesium 2.1 Total Bilirubin 0.4 AST 19 ALT 12 Alkaline Phosphatase 51 Troponin I High Sens 5.9 Total Protein 7.6 Albumin 4.0 Globulin 3.6 Albumin/Globulin Ratio 1.1 Triglycerides Cholesterol LDL Cholesterol, Calc VLDL Cholesterol, Calc HDL Cholesterol Cholesterol/HDL Ratio Procalcitonin < 0.02 TSH 4.517 H Free T4 0.86 Urine Color Urine Appearance Urine pH Ur Specific [place] Urine Protein Urine Glucose (UA) Urine Ketones Urine Blood Urine Nitrite Urine Bilirubin Urine Urobilinogen Ur Leukocyte Esterase Urine WBC (Auto) Urine RBC (Auto) U Hyaline Cast (Auto) U Epithel Cells (Auto) Urine Bacteria (Auto) Urine Comment Nasal Screen MRSA (PCR) Urine Opiates Screen Ur Methadone, Qual Urine Fentanyl Screen Urine Barbiturates Ur Phencyclidine (PCP) U Amphetamin/Meth Scrn MDMA (Ecstasy) Screen U Benzodiazepines Scrn Ur Cocaine Metabolite U Marijuana (THC) Screen Ethyl Alcohol mg/dL 108.4 H Lyme Disease Screen Positive H Lyme Tier 2 IgG Confirm Negative Lyme Tier 2 IgM Confirm Positive H Blood Type Antibody Screen 05/06/25 05/06/25 05/06/25 20:24 20:44 21:51 WBC RBC Hgb POC Hgb 16.7 Hct POC Hct 49 MCV MCH MCHC RDW Std Deviation RDW Coeff of Michelle Plt Count MPV Immature Gran % (Auto) Neut % (Auto) Lymph % (Auto) [place] % (Auto) Eos % (Auto) Baso % (Auto) Neut # (Auto) Lymph # (Auto) [place] # (Auto) Eos # (Auto) Baso # (Auto) Immature Gran # (Auto) PT INR APTT PTT Ratio POC Sodium 138 Sodium POC Potassium 3.8 Potassium POC Chloride 99 L Chloride Carbon Dioxide POC Total CO2 26 Anion Gap POC Anion Gap 17.0 POC BUN 10 BUN Creatinine POC Creatinine 1.0 Est Cr Clr Drug Dosing eGFR BUN/Creatinine Ratio Glucose POC Glucose 209 H POC Glucose (other) 66 L* Lactate Calcium POC Ioniz Calcium Uriah 1.16 Phosphorus Magnesium Total Bilirubin AST ALT Alkaline Phosphatase Troponin I High Sens Total Protein Albumin Globulin Albumin/Globulin Ratio Triglycerides Cholesterol LDL Cholesterol, Calc VLDL Cholesterol, Calc HDL Cholesterol Cholesterol/HDL Ratio Procalcitonin TSH Free T4 Urine Color Urine Appearance Urine pH Ur Specific [place] Urine Protein Urine Glucose (UA) Urine Ketones Urine Blood Urine Nitrite Urine Bilirubin Urine Urobilinogen Ur Leukocyte Esterase Urine WBC (Auto) Urine RBC (Auto) U Hyaline Cast (Auto) U Epithel Cells (Auto) Urine Bacteria (Auto) Urine Comment Nasal Screen MRSA (PCR) Urine Opiates Screen Ur Methadone, Qual Urine Fentanyl Screen Urine Barbiturates Ur Phencyclidine (PCP) U Amphetamin/Meth Scrn MDMA (Ecstasy) Screen U Benzodiazepines Scrn Ur Cocaine Metabolite U Marijuana (THC) Screen Ethyl Alcohol mg/dL Lyme Disease Screen Lyme Tier 2 IgG Confirm Lyme Tier 2 IgM Confirm Blood Type O Positive Antibody Screen NEGATIVE 05/06/25 05/07/25 05/07/25 Unknown 05:39 07:20 WBC 5.08 RBC 4.99 Hgb 14.7 POC Hgb Hct 43.0 POC Hct MCV 86.2 MCH 29.5 MCHC 34.2 RDW Std Deviation 46.1 RDW Coeff of Michelle 14.6 H Plt Count 171 MPV 9.7 Immature Gran % (Auto) 0.2 Neut % (Auto) 45.1 Lymph % (Auto) 39.6 [place] % (Auto) 9.8 Eos % (Auto) 4.3 Baso % (Auto) 1.0 Neut # (Auto) 2.29 Lymph # (Auto) 2.01 [place] # (Auto) 0.50 Eos # (Auto) 0.22 Baso # (Auto) 0.05 Immature Gran # (Auto) 0.01 PT INR APTT PTT Ratio POC Sodium Sodium 139 POC Potassium Potassium 4.1 POC Chloride Chloride 108 H Carbon Dioxide 25 POC Total CO2 Anion Gap 6 POC Anion Gap POC BUN BUN 9 Creatinine 0.80 POC Creatinine Est Cr Clr Drug Dosing 77.7 eGFR 100.06 BUN/Creatinine Ratio 11.3 Glucose 84 POC Glucose POC Glucose (other) Lactate Calcium 8.9 POC Ioniz Calcium Uri[place] Phosphorus Magnesium Total Bilirubin AST ALT Alkaline Phosphatase Troponin I High Sens Total Protein Albumin Globulin Albumin/Globulin Ratio Triglycerides 121 Cholesterol 171 LDL Cholesterol, Calc 97 VLDL Cholesterol, Calc 24 HDL Cholesterol 50 Cholesterol/HDL Ratio 3.4 Procalcitonin TSH Free T4 Urine Color Yellow Urine Appearance Clear Urine pH 7.0 Ur Specific [place] <= 1.005 Urine Protein Negative Urine Glucose (UA) Negative Urine Ketones Negative Urine Blood 1+ H Urine Nitrite Negative Urine Bilirubin Negative Urine Urobilinogen Negative Ur Leukocyte Esterase Negative Urine WBC (Auto) 0-5 Urine RBC (Auto) 0-2 U Hyaline Cast (Auto) 0-2 U Epithel Cells (Auto) 0-2 Urine Bacteria (Auto) None Seen Urine Comment Nasal Screen MRSA (PCR) Negative Urine Opiates Screen Neg Ur Methadone, Qual Neg Urine Fentanyl Screen Neg Urine Barbiturates Neg Ur Phencyclidine (PCP) Neg U Amphetamin/Meth Scrn Neg MDMA (Ecstasy) Screen Neg U Benzodiazepines Scrn Neg Ur Cocaine Metabolite Neg U Marijuana (THC) Screen Neg Ethyl Alcohol mg/dL Lyme Disease Screen Lyme Tier 2 IgG Confirm Lyme Tier 2 IgM Confirm Blood Type Antibody Screen 05/08/25 05:37 WBC 5.32 RBC 5.11 Hgb 15.1 POC Hgb Hct 44.4 POC Hct MCV 86.9 MCH 29.5 MCHC 34.0 RDW Std Deviation 47.2 H RDW Coeff of Michelle 14.8 H Plt Count 172 MPV 9.6 Immature Gran % (Auto) 0.2 Neut % (Auto) 40.7 Lymph % (Auto) 43.6 [place] % (Auto) 9.0 Eos % (Auto) 5.6 Baso % (Auto) 0.9 Neut # (Auto) 2.16 Lymph # (Auto) 2.32 [place] # (Auto) 0.48 Eos # (Auto) 0.30 Baso # (Auto) 0.05 Immature Gran # (Auto) 0.01 PT INR APTT PTT Ratio POC Sodium Sodium 140 POC Potassium Potassium 4.0 POC Chloride Chloride 110 H Carbon Dioxide 23 POC Total CO2 Anion Gap 7 POC Anion Gap POC BUN BUN 16 Creatinine 0.93 POC Creatinine Est Cr Clr Drug Dosing 68.3 eGFR 92.84 BUN/Creatinine Ratio 17.2 Glucose 89 POC Glucose POC Glucose (other) Lactate Calcium 8.8 POC Ioniz Calcium Uri[place] Phosphorus 3.7 Magnesium 2.0 Total Bilirubin AST ALT Alkaline Phosphatase Troponin I High Sens Total Protein Albumin Globulin Albumin/Globulin Ratio Triglycerides Cholesterol LDL Cholesterol, Calc VLDL Cholesterol, Calc HDL Cholesterol Cholesterol/HDL Ratio Procalcitonin TSH Free T4 Urine Color Urine Appearance Urine pH Ur Specific [place] Urine Protein Urine Glucose (UA) Urine Ketones Urine Blood Urine Nitrite Urine Bilirubin Urine Urobilinogen Ur Leukocyte Esterase Urine WBC (Auto) Urine RBC (Auto) U Hyaline Cast (Auto) U Epithel Cells (Auto) Urine Bacteria (Auto) Urine Comment Nasal Screen MRSA (PCR) Urine Opiates Screen Ur Methadone, Qual Urine Fentanyl Screen Urine Barbiturates Ur Phencyclidine (PCP) U Amphetamin/Meth Scrn MDMA (Ecstasy) Screen U Benzodiazepines Scrn Ur Cocaine Metabolite U Marijuana (THC) Screen Ethyl Alcohol mg/dL Lyme Disease Screen Lyme Tier 2 IgG Confirm Lyme Tier 2 IgM Confirm Blood Type Antibody Screen Diagnostic Findings Laboratory Results WBC 5.32 K/ul (4.8-10.8) 05/08/25 05:37 RBC 5.11 M/uL (4.70-6.10) 05/08/25 05:37 Hgb 15.1 g/dl (14.0-18.0) 05/08/25 05:37 POC Hgb 16.7 g/dl (14.0-18.0) 05/06/25 20:24 Hct 44.4 % (42.0-52.0) 05/08/25 05:37 POC Hct 49 % (42-52) 05/06/25 20:24 MCV 86.9 fL (80.0-100.0) 05/08/25 05:37 MCH 29.5 pg (25.0-34.0) 05/08/25 05:37 MCHC 34.0 g/dL (32.0-36.0) 05/08/25 05:37 RDW Std Deviation 47.2 fL (36.4-46.3) H 05/08/25 05:37 RDW Coeff of Michelle 14.8 % (11.5-14.5) H 05/08/25 05:37 Plt Count 172 K/uL (130-400) 05/08/25 05:37 MPV 9.6 fL (9.4-12.4) 05/08/25 05:37 Immature Gran % (Auto) 0.2 % 05/08/25 05:37 Neut % (Auto) 40.7 % 05/08/25 05:37 Lymph % (Auto) 43.6 % 05/08/25 05:37 [place] % (Auto) 9.0 % 05/08/25 05:37 Eos % (Auto) 5.6 % 05/08/25 05:37 Baso % (Auto) 0.9 % 05/08/25 05:37 Neut # (Auto) 2.16 K/uL (1.40-6.50) 05/08/25 05:37 Lymph # (Auto) 2.32 K/uL (1.20-3.40) 05/08/25 05:37 [place] # (Auto) 0.48 K/uL (0.11-0.59) 05/08/25 05:37 Eos # (Auto) 0.30 K/uL (0.00-0.50) 05/08/25 05:37 Baso # (Auto) 0.05 K/uL (0.00-0.20) 05/08/25 05:37 Immature Gran # (Auto) 0.01 K/uL (0.01-0.20) 05/08/25 05:37 PT 10.8 Seconds (9.0-12.0) 05/06/25 20: INR 1.0 (0.9-1.1) 05/06/25 20:21 APTT 29 Seconds (21-31) 05/06/25 20:21 PTT Ratio 1.1 05/06/25 20:21 POC Sodium 138 mmol/L (135-144) 05/06/25 20:24 Sodium 140 mmol/L (136-145) 05/08/25 05:37 POC Potassium 3.8 mmol/L (3.3-5.0) 05/06/25 20:24 Potassium 4.0 mmol/L (3.5-5.1) 05/08/25 05:37 POC Chloride 99 mmol/L (101-112) L 05/06/25 20:24 Chloride 110 mmol/L (98-107) H 05/08/25 05:37 Carbon Dioxide 23 mmol/L (21-32) 05/08/25 05:37 POC Total CO2 26 mmol/L (24-31) 05/06/25 20:24 Anion Gap 7 (3-11) 05/08/25 05:37 POC Anion Gap 17.0 mmol/L (16-25) 05/06/25 20:24 POC BUN 10 mg/dl (7-18) 05/06/25 20:24 BUN 16 mg/dl (6-23) 05/08/25 05:37 Creatinine 0.93 mg/dl (0.6-1.4) 05/08/25 05:37 POC Creatinine 1.0 mg/dl (0.6-1.3) 05/06/25 20:24 Est Cr Clr Drug Dosing 68.3 ml/min 05/08/25 05:37 eGFR 92.84 05/08/25 05:37 BUN/Creatinine Ratio 17.2 (-20) 05/08/25 05:37 Glucose 89 mg/dl (70-99(Fasting)) 05/08/25 05:37 POC Glucose 209 mg/dl (70-99) H 05/06/25 21:51 POC Glucose (other) 66 mg/dl (70-99) L* 05/06/25 20:24 Lactate 2.0 mmol/L (0.4-2.0) 05/06/25 20:21 Calcium 8.8 mg/dl (8.6-10.3) 05/08/25 05:37 POC Ioniz Calcium Uriah 1.16 mmol/l (1.12-1.32) 05/06/25 20:24 Phosphorus 3.7 mg/dl (2.5-4.9) 05/08/25 05:37 Magnesium 2.0 mg/dl (1.7-2.4) 05/08/25 05:37 Total Bilirubin 0.4 mg/dl (0.2-1.0) 05/06/25 20:21 AST 19 U/L (13-39) 05/06/25 20:21 ALT 12 U/L (7-52) 05/06/25 20:21 Alkaline Phosphatase 51 U/L (34-104) 05/06/25 20:21 Troponin I High Sens 5.9 pg/ml (0-20) 05/06/25 20:21 Total Protein 7.6 gm/dl (6.0-8.3) 05/06/25 20:21 Albumin 4.0 gm/dl (3.4-5.0) 05/06/25 20:21 Globulin 3.6 gm/dl (2.5-4.0) 05/06/25 20:21 Albumin/Globulin Ratio 1.1 (0.9-2) 05/06/25 20:21 Triglycerides 121 mg/dl (0-150) 05/07/25 05:39 Cholesterol 171 mg/dl (0-200) 05/07/25 05:39 LDL Cholesterol, Calc 97 mg/dl 05/07/25 05:39 VLDL Cholesterol, Calc 24 mg/dl (0-30) 05/07/25 05:39 HDL Cholesterol 50 mg/dl 05/07/25 05:39 Cholesterol/HDL Ratio 3.4 (0-5) 05/07/25 05:39 Procalcitonin < 0.02 ng/ml (0-0.5) 05/06/25 20:21 TSH 4.517 uIu/ml (0.300-4.500) H 05/06/25 20: Free T4 0.86 ng/dl (0.61-1.60) 05/06/25 20: Urine Color Yellow 05/06/25 Unknown Urine Appearance Clear (Clear) 05/06/25 Unknown Urine pH 7.0 (4.5-7.5) 05/06/25 Unknown Ur Specific [place] <= 1.005 (1.000-1.030) 05/06/25 Unknown Urine Protein Negative (Negative) 05/06/25 Unknown Urine Glucose (UA) Negative (Negative) 05/06/25 Unknown Urine Ketones Negative (Negative) 05/06/25 Unknown Urine Blood 1+ (Negative) H 05/06/25 Unknown Urine Nitrite Negative (Negative) 05/06/25 Unknown Urine Bilirubin Negative (Negative) 05/06/25 Unknown Urine Urobilinogen Negative (Negative) 05/06/25 Unknown Ur Leukocyte Esterase Negative (Negative) 05/06/25 Unknown Urine WBC (Auto) 0-5 /hpf (0-5) 05/06/25 Unknown Urine RBC (Auto) 0-2 /hpf (0-2) 05/06/25 Unknown U Hyaline Cast (Auto) 0-2 /lpf (0-2) 05/06/25 Unknown U Epithel Cells (Auto) 0-2 /hpf (0-2) 05/06/25 Unknown Urine Bacteria (Auto) None Seen (None Seen) 05/06/25 Unknown Urine Comment 05/06/25 Unknown Nasal Screen MRSA (PCR) Negative (Negative) 05/07/25 07:20 Urine Opiates Screen Neg (Neg) 05/06/25 Unknown Ur Methadone, Qual Neg (Neg) 05/06/25 Unknown Urine Fentanyl Screen Neg (Neg) 05/06/25 Unknown Urine Barbiturates Neg (Neg) 05/06/25 Unknown Ur Phencyclidine (PCP) Neg (Neg) 05/06/25 Unknown U Amphetamin/Meth Scrn Neg (Neg) 05/06/25 Unknown MDMA (Ecstasy) Screen Neg (Neg) 05/06/25 Unknown U Benzodiazepines Scrn Neg (Neg) 05/06/25 Unknown Ur Cocaine Metabolite Neg (Neg) 05/06/25 Unknown U Marijuana (THC) Screen Neg (Neg) 05/06/25 Unknown Ethyl Alcohol mg/dL 108.4 mg/dl (<10.0) H 05/06/25 20:22 Lyme Disease Screen Positive (Negative) H 05/06/25 20:21 Lyme Tier 2 IgG Confirm Negative (Negative) 05/06/25 20:21 Lyme Tier 2 IgM Confirm Positive (Negative) H 05/06/25 20:21 Blood Type O Positive 05/06/25 20:44 Antibody Screen NEGATIVE 05/06/25 20:44 Impressions Chest X-Ray 05/06/25 19:34 Chest radiograph, one view History: Chest pain Comparison: None Findings: Single AP view of the chest performed. No focal consolidation or pleural effusion. No pneumothorax. The cardiomediastinal silhouette is within normal limits. Normal pulmonary vascularity. No evidence for lymphadenopathy. No visualized bony or soft tissue abnormality. Impression: Normal chest radiograph Electronically signed by Link Ruiz 05-06-2025 8:[address] 05/06/25 19:[address] without contrast CT angiogram of the neck CT angiogram of the brain with contrast Provided History: Neuro deficit Comparison: None Technique: HEAD CT: Using multidetector thin collimation helical acquisition technique, axial, coronal and sagittal CT images from the skull base to the vertex were obtained without intravenous contrast. HEAD and NECK CTA: During rapid bolus intravenous injection of nonionic contrast material, axial images were obtained using thin collimation multidetector helical technique from the base of the neck through the of vertex of the head. This CT angiogram data was reconstructed at thin intervals with mild overlap. 3D reconstructions were obtained. The axial source images, multiplanar reformations, 3D reconstructions in both maximum intensity projection display and volume rendered models were reviewed. Dose reduction techniques were achieved by using automatic exposure control and/or adjustment of mA and/or kV according to patient size and/or use of iterative reconstruction technique. Findings: Head CT: There is no intracranial hemorrhage, mass effect, or midline shift. Davidson/white matter differentiation in both cerebral hemispheres is preserved. Ventricles are proportionate to the cerebral sulci. Head CTA demonstrates no aneurysm or stenosis of the major intracranial arteries. Neck CTA demonstrates no stenosis of the major cervical arteries. 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 The origins of the great vessels from the aortic arch are patent. No mass is noted within the visualized portions of the cervical soft tissues or lung apices. Impression: 1. Head CTA demonstrates no aneurysm or stenosis of the major intracranial arteries, 2. Neck CTA demonstrates a thin dissection flap, measuring approximately 2.5 mm in length of the proximal right ICA, without resulting in stenosis or occlusion. Otherwise no stenosis of the major cervical arteries. 3. No intracranial hemorrhage on the noncontrast head CT. Electronically signed by Link Ruiz 05-06-2025 8:16 PM Head CTA 05/06/25 19:[address] without contrast CT angiogram of the neck CT angiogram of the brain with contrast Provided History: Neuro deficit Comparison: None Technique: HEAD CT: Using multidetector thin collimation helical acquisition technique, axial, coronal and sagittal CT images from the skull base to the vertex were obtained without intravenous contrast. HEAD and NECK CTA: During rapid bolus intravenous injection of nonionic contrast material, axial images were obtained using thin collimation multidetector helical technique from the base of the neck through the of vertex of the head. This CT angiogram data was reconstructed at thin intervals with mild overlap. 3D reconstructions were obtained. The axial source images, multiplanar reformations, 3D reconstructions in both maximum intensity projection display and volume rendered models were reviewed. Dose reduction techniques were achieved by using automatic exposure control and/or adjustment of mA and/or kV according to patient size and/or use of iterative reconstruction technique. Findings: Head CT: There is no intracranial hemorrhage, mass effect, or midline shift. Davidson/white matter differentiation in both cerebral hemispheres is preserved. Ventricles are proportionate to the cerebral sulci. Head CTA demonstrates no aneurysm or stenosis of the major intracranial arteries. Neck CTA demonstrates no stenosis of the major cervical arteries. 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 The origins of the great vessels from the aortic arch are patent. No mass is noted within the visualized portions of the cervical soft tissues or lung apices. Impression: 1. Head CTA demonstrates no aneurysm or stenosis of the major intracranial arteries, 2. Neck CTA demonstrates a thin dissection flap, measuring approximately 2.5 mm in length of the proximal right ICA, without resulting in stenosis or occlusion. Otherwise no stenosis of the major cervical arteries. 3. No intracranial hemorrhage on the noncontrast head CT. Electronically signed by Link Ruiz 05-06-2025 8:16 PM Neck CTA 05/06/25 19:[address] without contrast CT angiogram of the neck CT angiogram of the brain with contrast Provided History: Neuro deficit Comparison: None Technique: HEAD CT: Using multidetector thin collimation helical acquisition technique, axial, coronal and sagittal CT images from the skull base to the vertex were obtained without intravenous contrast. HEAD and NECK CTA: During rapid bolus intravenous injection of nonionic contrast material, axial images were obtained using thin collimation multidetector helical technique from the base of the neck through the of vertex of the head. This CT angiogram data was reconstructed at thin intervals with mild overlap. 3D reconstructions were obtained. The axial source images, multiplanar reformations, 3D reconstructions in both maximum intensity projection display and volume rendered models were reviewed. Dose reduction techniques were achieved by using automatic exposure control and/or adjustment of mA and/or kV according to patient size and/or use of iterative reconstruction technique. Findings: Head CT: There is no intracranial hemorrhage, mass effect, or midline shift. Davidson/white matter differentiation in both cerebral hemispheres is preserved. Ventricles are proportionate to the cerebral sulci. Head CTA demonstrates no aneurysm or stenosis of the major intracranial arteries. Neck CTA demonstrates no stenosis of the major cervical arteries. 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 The origins of the great vessels from the aortic arch are patent. No mass is noted within the visualized portions of the cervical soft tissues or lung apices. Impression: 1. Head CTA demonstrates no aneurysm or stenosis of the major intracranial arteries, 2. Neck CTA demonstrates a thin dissection flap, measuring approximately 2.5 mm in length of the proximal right ICA, without resulting in stenosis or occlusion. Otherwise no stenosis of the major cervical arteries. 3. No intracranial hemorrhage on the noncontrast head CT. Electronically signed by Link Ruiz 05-06-2025 8:16 PM Chest CTA 05/06/25 19:41 CT pulmonary angiogram with IV contrast History: Chest pain COMPARISON: None TECHNIQUE: CT angiography of the chest was performed without IV contrast followed by IV contrast, including 3D post processing CTA image reconstruction. Dose reduction techniques were achieved by using automatic exposure control and/or adjustment of mA and/or kV according to patient size and/or use of iterative reconstruction technique. FINDINGS: Diagnostic quality: Adequate There is no evidence for pulmonary embolism. The heart is not enlarged. There is no pericardial effusion. There are no abnormally enlarged hilar or mediastinal lymph nodes. The central tracheobronchial tree is clear. The lungs are clear. There are a few, thin bandlike areas of atelectasis in the lung bases. There is no pleural effusion. Limited visualized upper abdomen. No destructive osseous changes are seen. IMPRESSION: No evidence for pulmonary embolism. Electronically signed by Link Ruiz 05-06-2025 8:21 PM Brain MRI 05/06/25 22:48 Exam(s): MRI HEAD W/WO Contrast IV Amt: 6ml rianna EXAM: MR Head Without and With Intravenous Contrast CLINICAL HISTORY: Reason for exam: poss sz. TECHNIQUE: Magnetic resonance images of the head/brain without and with intravenous contrast in multiple planes. CONTRAST: Patient received 6ml rianna of IV contrast COMPARISON: Prior head CT from May 06, 2025. FINDINGS: Brain: There is edema in the left hippocampus. No mass. No hemorrhage. No acute infarct. The flow voids at the base the brain are intact. No evidence of abnormal enhancement. The dural venous sinuses are patent. No evidence of heterotopic davidson matter or cortical dysplasia. Ventricles: Unremarkable. No ventriculomegaly. Bones/joints: Unremarkable. No acute fracture. Sinuses: Chronic ethmoid sinusitis. No acute sinusitis. Mastoid air cells: Unremarkable as visualized. No mastoid effusion. Orbits: Unremarkable as visualized. IMPRESSION: Edema in the left hippocampus concerning for postictal edema. Electronically signed by: Anju Miramontes MD 05/07/25 00:58 AM 05/07/25 ECHO Interpretation Summary Left ventricular systolic function is normal. Left Ventricular Ejection Fraction = 50-55%. Grade I diastolic dysfunction, (abnormal relaxation pattern). There is mild mitral regurgitation. There is mild tricuspid regurgitation. The interatrial septum is intact with no evidence for an atrial septal defect. Injection of contrast documented no interatrial shunt. Medications Administered Home Medications Medication Instructions Recorded Confirmed Last Taken albuterol sulfate 90 mcg/actuation 1 - 2 puff inhalation Q6 PRN as 05/06/25 05/06/25 Unknown aerosol inhaler (Ventolin HFA) directed Active Medications Generic Name Dose Route Start Last Admin Trade Name Freq PRN Reason Stop Dose Admin Aspirin 81 mg 05/07/25 09:00 05/08/25 09:20 Aspirin 81 Mg Ectab PO 06/06/25 08:59 81 mg QAM JAMSHID Administration Atorvastatin Calcium 40 mg 05/08/25 09:00 05/08/25 09:22 Atorvastatin 40 Mg Tab PO 06/07/25 08:59 40 mg QAM JAMSHID Administration Clopidogrel Bisulfate 75 mg 05/07/25 09:00 05/08/25 09:21 Clopidogrel Bisulfate 75 Mg Tab PO 06/06/25 08:59 75 mg QAM JAMSHID Administration Folic Acid 1 mg 05/07/25 09:00 05/08/25 09:21 Folic Acid 1 Mg Tab PO 06/06/25 08:59 1 mg QAM JAMSHID Administration Heparin Sodium (Porcine) 5,000 units 05/07/25 06:00 05/08/25 06:26 Heparin Sod 5,000 Unit/0.5 Ml Vial SQ 06/06/25 05:59 Not Given Q8 JAMSHID Levetiracetam 500 mg 05/07/25 09:00 05/08/25 09:20 Levetiracetam 500 Mg Tab PO 06/06/25 08:59 500 mg BID JAMSHID Administration Miscellaneous 1 each 05/07/25 08:59 05/08/25 09:20 Remove Nicoderm Patch N/A 06/06/25 08:58 1 each DAILY@0859 JAMSHID Administration Multivitamins 1 tab 05/07/25 09:00 05/08/25 09:20 Multivitamin Tab PO 06/06/25 08:59 1 tab QAM JAMSHID Administration Nicotine 1 patch 05/08/25 11:00 05/08/25 11:11 Nicotine 14 Mg/24 Hr Patch TD 06/07/25 10:59 1 patch QAM JAMSHID Administration Thiamine HCl 100 mg 05/07/25 09:00 05/08/25 09:22 Thiamine Hcl 100 Mg Tab PO 06/06/25 08:59 100 mg QAM JAMSHID Administration PG Care Time/CCT Total # of Minutes Spent Total Time Spent with Patient: Total time spent is greater than 50% in coordination of care (as documented) at patient's floor/unit and/or counseling patient: Coding Level of Care Code 74427 SUB INP/OBS CARE 3/50MIN Diagnoses Seizure R56.9 Bradycardia R00.1 Premature atrial contractions I49.1 Aortic atherosclerosis I70.0 HTN (hypertension) I10 Lyme disease A69.20
--- NOTE | 2025-05-08 13:02 | Vascular Surgery Consultation ---
Date of Consultation May 08, 2025 Assessment & Plan (1) Spontaneous dissection of internal carotid artery: found on stroke work up due to left sided weakness which has now resolved In evaluating his images, the dissection is very small and thin, and we would recommend conservative management at this time, to include good blood pressure control and dual antiplatelet therapy with aspirin and plavix. Agree with repeat CTA in 3 months. He can follow up in our office after CTA. Also discussed smoking cessation with him to help decrease risk cardiovascular risk factors. Educated him and his ex- on risks and benefits of aspirin and Plavix as well signs and symptoms of stroke (2) Stroke-like symptoms: possibly related to stroke/TIA from dissection vs seizure started on Statin, aspirin and plavix agree with neurology recommendations and follow up in 3 months with CTA neck to assess dissection discussed signs of stroke with patient and his friend and encouraged smoking cessation. History of Present Illness Reason for Consultation: right proximal ICA dissection Requesting Physician: Dr. Nery Green Attending Physician: Nery Green MD History of Present Illness Mr. Luz is a pleasant 64 year old gentleman who was admitted on 05/06/25 with concerns for seizure vs acute stroke, who we are being asked to evaluate after finding of small right proximal ICA dissection on stroke rule out imaging. History was obtained from patient as well as his ex- who is at bedside, and the patients medical records. Patient was brought to [facility] ED by EMS on 05/06 after calling his daughter due to concerns that he felt like he was going to pass out. He was found on the floor by EMS and was minimally responsive to them at that time. On the ride to the ED he became more awake and talkative, but noted weakness in his left arm as well a s some left upper chest pain (per reports). He was noted to be bradycardic and was given atropine in the ambulance. He underwent stroke work up in the ED, which included imaging of chest, neck, head and brain as well as telestroke consultation. He was given aspirin and plavix in the ED. He was also noted to be hypoglycemic in the ED and was given D10. Brain MRI did show edema in the left hippocampus concerning for postictal edema. CT head was unremarkable for any intracranial hemorrhage, mass effect or midline shift. CTA head did not show any aneurysms, however CTA neck did show a small thin dissection flap in the proximal right ICA. Other significant findings in ED included positive Lyme IgM. echo showed EF of 50-55%, no thrombus, no PFO/ASD. He has also been seen by neurology since the telestroke consult. He notes a history of COPD and seizures (not currently on medication). He and his ex- note that last week he was having blank stares that were similar to prior seizure. He was evaluate at [facility] ED, and was noted to be bradycardic at that time as well, however did leave prior to any recommended testing. He smokes about 1/2 pack of cigarettes per day (down from 2 PPD), and drinks 3-4 beers per day. 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 Currently he states he is feeling well. He denies any dizziness or lightheadedness, chest pain, arm or leg weakness, difficulty speaking, loss of vision in one eye, or slurred speech. He has no history of stroke in the past that he is aware of. He does have a family history of CAD (mother). He has no difficulty walking and can walk as much as his breathing will allow him to do. Allergies Allergy/AdvReac Type Severity Reaction Status Date / Time blueberry Allergy Severe HIVES Verified 06/02/23 06:33 aspirin Allergy Unknown nasal Verified 06/02/23 06:33 bleeding Home Medications Medication Instructions Recorded Confirmed Type albuterol sulfate 90 mcg/actuation 1 - 2 puff inhalation Q6 PRN as 05/06/25 05/06/25 History aerosol inhaler (Ventolin HFA) directed Patient History Medical History Chronic obstructive pulmonary disease no inhalers, well controlled per pt Seizure "Only happened twice over 10 years ago", no meds, no neuro Per records "seizure with ETOH use vs pseudo seizures " - Per neuro consultation 2018- on Lamictal at one point- no longer taking; EEGs showed no seizure focus - No issues x years per patient Surgical History Hx of surgical procedure I&D right third finger History of tooth extraction Family History Mother Coronary heart disease Social History Smoking Status: Current every day smoker Tobacco Type: Cigarettes Cigarettes Per Day: 1/2 ppd; Second Hand Exposure: No; Do You Dip or Chew Tobacco: No; Tobacco Cessation Education Requested by Patient: Yes Hx Alcohol Use: Yes Alcohol type: beer Hx Substance Use: No Preferred Language: Tunisian Communication Ability: Effective Bioinformatics Associate Required: No Beliefs That Will Affect Care: None Current Living Situation: Alone Other Information That Helps Us Care for You: No Feels Safe at Home: Yes Safety Concerns: Feels Safe At This Time Assistive Devices: None Review of Systems Constitutional: denies fevers, chills, fatigue Eyes: denies vision changes, loss of vision in one eye Respiratory: positive for shortness of breath, cough, negative for wheezing Cardiovascular: Additional Comments: see HPI Gastrointestinal: denies nausea, vomiting, diarrhea, abdominal pain Musculoskeletal: denies any joint pain or joint swelling, no issues with ambulation Integumentary: denies wounds, rashes, itching or discolorations Neurologic: see HPI Hematologic / Lymphatic: denies easy bleeding or easy bruising, denies history of blood clots. Physical Exam Constitutional: thin, sitting up in bed, pleasant and talkative, in no distress, AA&O x 3 Eyes: PERRLA, EOMI Neck: supple, no lymphadenopathy, trachea midline Respiratory: CTAB, no accessory muscle use or retractions noted, no increased work of breath ing Chest (Breasts): Additional Comments: bradycardic but regular Radial pulses +2 bilaterally, dorsalis pedis pulses +2 bilaterally no carotid bruits noted Gastrointestinal (Abdomen): non distended, no bruits noted, soft, no tenderness to palpation Musculoskeletal: no erythema, cyanosis or clubbing noted. Skin: warm and dry, no rashes or lesions Neurologic: CN II-XII grossly intact strength equal +5/5 bilateral upper and lower extremities tongue midline no facial drooping noted. Results & Data Vital Signs (Past 12 Hours) Vital Signs Temp Pulse Resp BP Pulse Ox O2 Del Method 05/08/25 10:09 Room Air 05/08/25 03:27 36.7 C 59 L 17 112/74 95 Room Air Laboratory Results 05/06/25 20:21 Aerobic Blood Culture - Preliminary Blood No growth in Aerobic bottle after 24 hours. Anaerobic Blood Culture - Preliminary No growth in Anaerobic bottle after 24 hours. 05/06/25 20:44 Aerobic Blood Culture - Preliminary Blood No growth in Aerobic bottle after 24 hours. Anaerobic Blood Culture - Preliminary No growth in Anaerobic bottle after 24 hours. 05/08/25 05:37 WBC 5.32 RBC 5.11 Hgb 15.1 Hct 44.4 MCV 86.9 MCH 29.5 MCHC 34.0 RDW Std Deviation 47.2 H RDW Coeff of Michelle 14.8 H Plt Count 172 MPV 9.6 Immature Gran % (Auto) 0.2 Neut % (Auto) 40.7 Lymph % (Auto) 43.6 [place] % (Auto) 9.0 Eos % (Auto) 5.6 Baso % (Auto) 0.9 Neut # (Auto) 2.16 Lymph # (Auto) 2.32 [place] # (Auto) 0.48 Eos # (Auto) 0.30 Baso # (Auto) 0.05 Immature Gran # (Auto) 0.01 Sodium 140 Potassium 4.0 Chloride 110 H Carbon Dioxide 23 Anion Gap 7 BUN 16 Creatinine 0.93 Est Cr Clr Drug Dosing 68.3 eGFR 92.84 BUN/Creatinine Ratio 17.2 Glucose 89 Calcium 8.8 Phosphorus 3.7 Magnesium 2.0 Diagnostic Findings Chest X-Ray 05/06/25 19:34 Chest radiograph, one view History: Chest pain Comparison: None Findings: Single AP view of the chest performed. No focal consolidation or pleural effusion. No pneumothorax. The cardiomediastinal silhouette is within normal limits. Normal pulmonary vascularity. No evidence for lymphadenopathy. No visualized bony or soft tissue abnormality. Impression: Normal chest radiograph Electronically signed by Link Ruiz 05-06-2025 8:[address] 05/06/25 19:[address] without contrast CT angiogram of the neck CT angiogram of the brain with contrast Provided History: Neuro deficit Comparison: None Technique: HEAD CT: Using multidetector thin collimation helical acquisition technique, axial, coronal and sagittal CT images from the skull base to the vertex were obtained without intravenous contrast. HEAD and NECK CTA: During rapid bolus intravenous injection of nonionic contrast material, axial images were obtained using thin collimation multidetector helical technique from the base of the neck through the of vertex of the head. This CT angiogram data was reconstructed at thin intervals with mild overlap. 3D reconstructions were obtained. The axial source images, multiplanar reformations, 3D reconstructions in both maximum intensity projection display and volume rendered models were reviewed. Dose reduction techniques were achieved by using automatic exposure control and/or adjustment of mA and/or kV according to patient size and/or use of iterative reconstruction technique. Findings: Head CT: There is no intracranial hemorrhage, mass effect, or midline shift. Davidson/white matter differentiation in both cerebral hemispheres is preserved. Ventricles are proportionate to the cerebral sulci. Head CTA demonstrates no aneurysm or stenosis of the major intracranial arteries. Neck CTA demonstrates no stenosis of the major cervical arteries. 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 The origins of the great vessels from the aortic arch are patent. No mass is noted within the visualized portions of the cervical soft tissues or lung apices. Impression: 1. Head CTA demonstrates no aneurysm or stenosis of the major intracranial arteries, 2. Neck CTA demonstrates a thin dissection flap, measuring approximately 2.5 mm in length of the proximal right ICA, without resulting in stenosis or occlusion. Otherwise no stenosis of the major cervical arteries. 3. No intracranial hemorrhage on the noncontrast head CT. Electronically signed by Link Ruiz 05-06-2025 8:16 PM Head CTA 05/06/25 19:[address] without contrast CT angiogram of the neck CT angiogram of the brain with contrast Provided History: Neuro deficit Comparison: None Technique: HEAD CT: Using multidetector thin collimation helical acquisition technique, axial, coronal and sagittal CT images from the skull base to the vertex were obtained without intravenous contrast. HEAD and NECK CTA: During rapid bolus intravenous injection of nonionic contrast material, axial images were obtained using thin collimation multidetector helical technique from the base of the neck through the of vertex of the head. This CT angiogram data was reconstructed at thin intervals with mild overlap. 3D reconstructions were obtained. The axial source images, multiplanar reformations, 3D reconstructions in both maximum intensity projection display and volume rendered models were reviewed. Dose reduction techniques were achieved by using automatic exposure control and/or adjustment of mA and/or kV according to patient size and/or use of iterative reconstruction technique. Findings: Head CT: There is no intracranial hemorrhage, mass effect, or midline shift. Davidson/white matter differentiation in both cerebral hemispheres is preserved. Ventricles are proportionate to the cerebral sulci. Head CTA demonstrates no aneurysm or stenosis of the major intracranial arteries. Neck CTA demonstrates no stenosis of the major cervical arteries. 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 The origins of the great vessels from the aortic arch are patent. No mass is noted within the visualized portions of the cervical soft tissues or lung apices. Impression: 1. Head CTA demonstrates no aneurysm or stenosis of the major intracranial arteries, 2. Neck CTA demonstrates a thin dissection flap, measuring approximately 2.5 mm in length of the proximal right ICA, without resulting in stenosis or occlusion. Otherwise no stenosis of the major cervical arteries. 3. No intracranial hemorrhage on the noncontrast head CT. Electronically signed by Link Ruiz 05-06-2025 8:16 PM Neck CTA 05/06/25 19:[address] without contrast CT angiogram of the neck CT angiogram of the brain with contrast Provided History: Neuro deficit Comparison: None Technique: HEAD CT: Using multidetector thin collimation helical acquisition technique, axial, coronal and sagittal CT images from the skull base to the vertex were obtained without intravenous contrast. HEAD and NECK CTA: During rapid bolus intravenous injection of nonionic contrast material, axial images were obtained using thin collimation multidetector helical technique from the base of the neck through the of vertex of the head. This CT angiogram data was reconstructed at thin intervals with mild overlap. 3D reconstructions were obtained. The axial source images, multiplanar reformations, 3D reconstructions in both maximum intensity projection display and volume rendered models were reviewed. Dose reduction techniques were achieved by using automatic exposure control and/or adjustment of mA and/or kV according to patient size and/or use of iterative reconstruction technique. Findings: Head CT: There is no intracranial hemorrhage, mass effect, or midline shift. Davidson/white matter differentiation in both cerebral hemispheres is preserved. Ventricles are proportionate to the cerebral sulci. Head CTA demonstrates no aneurysm or stenosis of the major intracranial arteries. Neck CTA demonstrates no stenosis of the major cervical arteries. 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 The origins of the great vessels from the aortic arch are patent. No mass is noted within the visualized portions of the cervical soft tissues or lung apices. Impression: 1. Head CTA demonstrates no aneurysm or stenosis of the major intracranial arteries, 2. Neck CTA demonstrates a thin dissection flap, measuring approximately 2.5 mm in length of the proximal right ICA, without resulting in stenosis or occlusion. Otherwise no stenosis of the major cervical arteries. 3. No intracranial hemorrhage on the noncontrast head CT. Electronically signed by Likn Ruiz 05-06-2025 8:16 PM Chest CTA 05/06/25 19:41 CT pulmonary angiogram with IV contrast History: Chest pain COMPARISON: None TECHNIQUE: CT angiography of the chest was performed without IV contrast followed by IV contrast, including 3D post processing CTA image reconstruction. Dose reduction techniques were achieved by using automatic exposure control and/or adjustment of mA and/or kV according to patient size and/or use of iterative reconstruction technique. FINDINGS: Diagnostic quality: Adequate There is no evidence for pulmonary embolism. The heart is not enlarged. There is no pericardial effusion. There are no abnormally enlarged hilar or mediastinal lymph nodes. The central tracheobronchial tree is clear. The lungs are clear. There are a few, thin bandlike areas of atelectasis in the lung bases. There is no pleural effusion. Limited visualized upper abdomen. No destructive osseous changes are seen. IMPRESSION: No evidence for pulmonary embolism. Electronically signed by Link Ruiz 05-06-2025 8:21 PM Brain MRI 05/06/25 22:48 Exam(s): MRI HEAD W/WO Contrast IV Amt: 6ml rianna EXAM: MR Head Without and With Intravenous Contrast CLINICAL HISTORY: Reason for exam: poss sz. TECHNIQUE: Magnetic resonance images of the head/brain without and with intravenous contrast in multiple planes. CONTRAST: Patient received 6ml rianna of IV contrast COMPARISON: Prior head CT from May 06, 2025. FINDINGS: Brain: There is edema in the left hippocampus. No mass. No hemorrhage. No acute infarct. The flow voids at the base the brain are intact. No evidence of abnormal enhancement. The dural venous sinuses are patent. No evidence of heterotopic davidson matter or cortical dysplasia. Ventricles: Unremarkable. No ventriculomegaly. Bones/joints: Unremarkable. No acute fracture. Sinuses: Chronic ethmoid sinusitis. No acute sinusitis. Mastoid air cells: Unremarkable as visualized. No mastoid effusion. Orbits: Unremarkable as visualized. IMPRESSION: Edema in the left hippocampus concerning for postictal edema. Electronically signed by: Anju Miramontes MD 05/07/25 00:58 AM Medications Administered Home Medications Medication Instructions Recorded Confirmed Last Taken albuterol sulfate 90 mcg/actuation 1 - 2 puff inhalation Q6 PRN as 05/06/25 05/06/25 Unknown aerosol inhaler (Ventolin HFA) directed Active Medications Generic Name Dose Route Start Last Admin Trade Name Freq PRN Reason Stop Dose Admin Aspirin 81 mg 05/07/25 09:00 05/08/25 09:20 Aspirin 81 Mg Ectab PO 06/06/25 08:59 81 mg QAM JAMSHID Administration Atorvastatin Calcium 40 mg 05/08/25 09:00 05/08/25 09:22 Atorvastatin 40 Mg Tab PO 06/07/25 08:59 40 mg QAM JAMSHID Administration Clopidogrel Bisulfate 75 mg 05/07/25 09:00 05/08/25 09:21 Clopidogrel Bisulfate 75 Mg Tab PO 06/06/25 08:59 75 mg QAM JAMSHID Administration Folic Acid 1 mg 05/07/25 09:00 05/08/25 09:21 Folic Acid 1 Mg Tab PO 06/06/25 08:59 1 mg QAM JAMSHID Administration Heparin Sodium (Porcine) 5,000 units 05/07/25 06:00 05/08/25 06:26 Heparin Sod 5,000 Unit/0.5 Ml Vial SQ 06/06/25 05:59 Not Given Q8 JAMSHID Levetiracetam 500 mg 05/07/25 09:00 05/08/25 09:20 Levetiracetam 500 Mg Tab PO 06/06/25 08:59 500 mg BID JAMSHID Administration Miscellaneous 1 each 05/07/25 08:59 05/08/25 09:20 Remove Nicoderm Patch N/A 06/06/25 08:58 1 each DAILY@0859 JAMSHID Administration Multivitamins 1 tab 05/07/25 09:00 05/08/25 09:20 Multivitamin Tab PO 06/06/25 08:59 1 tab QAM JAMSHID Administration Nicotine 1 patch 05/08/25 11:00 05/08/25 11:11 Nicotine 14 Mg/24 Hr Patch TD 06/07/25 10:59 1 patch QAM JAMSHID Administration Thiamine HCl 100 mg 05/07/25 09:00 05/08/25 09:22 Thiamine Hcl 100 Mg Tab PO 06/06/25 08:59 100 mg QAM JAMSHID Administration PG Care Time/CCT Total # of Minutes Spent Total Time Spent with Patient: Total time spent is greater than 50% in coordination of care (as documented) at patient's floor/unit and/or counseling patient: [place] [address] IN/OBS CONSULT LVL 4,60M Patient Type New History Detailed Exam Detailed Medical Decision Making Moderate Complexity Diagnoses Spontaneous dissection of internal carotid artery I77.71 Stroke-like symptoms R29.90
[2025-05-08 13:31] VITALS: BP 121/70; RESP 18; O2SAT 96
--- NOTE | 2025-05-08 15:06 | Discharge Summary ---
Date of Service May 08, 2025 Admission HPI Per Admitting Provider History obtained from patient, family, and records. Medical history significant for COPD, seizure disorder, ongoing tobacco/alcohol abuse. Last [facility] confinement 2017 for MRSA abscess right third finger status post I&D. Patient with passing out at home last week. Blank stares as per . Reminiscent of seizures. Patient has not taken Lamictal for more than a decade now due to insurance issues as per family. Patient evaluated at [facility] ER. Heart rate noted to be slow. Patient signed out AGAINST MEDICAL ADVICE. Patient thinks he may have passed out again today causing him to fall down. Not sure if he had seizures. Mild headache symptoms. Central chest pain with some shortness of breath. No unusual cough symptoms. Patient able to call daughter to ask for help. EMS called to patient's home. SBP noted to be 180s. Patient left side noted to be weak. Patient not sure about recent tick bite exposure. Lowest heart rate of 40s documented at the ER. Aspirin and Plavix administered at the ER following Neurology recommendations. 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 Admission Exam Per Admitting Provider GENERAL: Comfortable, underweight, no respiratory distress SKIN: Normal color, warm HEENT: [place] palpebral conjunctivae, no ptosis, dry buccal mucosa NECK : Supple, no tenderness CHEST : Decreased breath sounds, no tenderness HEART : Bradycardic, no obvious murmurs ABDOMEN: no distention, nontender EXTREMITIES : No LE swelling/tenderness, palpable pulses, no other conspicuous deformities noted NEUROLOGIC : Coherent, no facial asymmetry, MMTs RUE/RLE 4/5, LUE 3/5, LLE 2/5, gait and stance not assessed Principal Diagnosis Right Internal carotid artery dissection Seizure disorder Lyme disease Discharge Exam Constitutional + well hydrated; no acute distress Eyes PERRL, conjunctivae normal, anicteric sclerae ENMT external ear and nose normal, oropharynx normal Respiratory normal respiratory effort, lungs clear to auscultation Cardiovascular Rate/Rhythm: + bradycardic Gastrointestinal (Abdomen) normal bowel sounds, soft, nontender, no hepatosplenomegaly Musculoskeletal No pedal edema Neurologic PERRL, EOMI, accommodation nl, no face palsy, no dysarthria Psychiatric A+Ox3, euthymic affect Discharge Data Allergies Allergy/AdvReac Type Severity Reaction Status Date / Time blueberry Allergy Severe HIVES Verified 06/02/23 06:33 aspirin Allergy Unknown nasal Verified 06/02/23 06:33 bleeding Consultations 05/06/25 21:11 ED Decision to Admit Stat 05/06/25 22:53 Consult Cardiology Routine 05/07/25 01:18 Consult Neurology Routine 05/07/25 06:10 HIM [Consult Health Information Management] Routine 05/08/25 10:43 Consult Vascular Surgery Routine Ordered Studies 05/06/25 19:34 CT angio head w con Stat CT angio neck with con Stat CT head/brain wo con Stat 05/06/25 19:41 CT angio chest PE protocol Stat 05/06/25 22:48 MRI Brain [MR brain seizure wo/w con] Stat Hospital Course (1) Fall: 64 yo M w/ PMH of COPD, seizure disorder, ongoing tobacco/alcohol abuse, MRSA infection presents w/ c/o passing out and Left side weakness. Per pt's friend Margot (ex ), pt has been passing out at home last week, w/ blank stares reminiscent of seizures. Pt has not taken seizure meds since . He was evaluated at [facility] ER, from where he signed out AGAINST MEDICAL ADVICE. He passed out again on the day of arrival 05/06 causing him to fall, hence presented to [facility] ED. Patient able to call daughter to ask for help. SBP noted to be 180s at presentation. Patient left side noted to be weak. Lowest heart rate of 40s documented at the ER. Aspirin and Plavix administered at the ER following Neurology recommendations. Dissection right ICA Seizure disorder Patient presented with complaint of recurrent blank stares and passing out in the last 1 week. 05/06 he noted left-sided weakness and fell down. CT head/CTA head/neck demonstrated thin dissection flap 2.5 mm in length of the proximal right ICA without resulting any stenosis or occlusion. Rest of the imagings with no acute findings. Brain MRI: Edema in the left hippocampus concerning for postictal edema. Echo with EF of 50 to 55%, LV systolic function is normal. LDL 97 MRI brain ruled out CVA Neurology evaluated and recommended zio patch, 3 months of DAPT (Aspirin and plavix), to get CTA head/neck prior to stopping plavix, outpatient Neurology followup Patient was also started on Atorvastatin He was also started on Keppra 500mg BID for seizure meds PCP to arrange outpatient Zio patch and outpatient CTA Vascular surgery evaluated and agreed with conservative management and patient can follow up with Vascular outpatient after CTA in 3 months PT/OT evaluated. Rehab was initially recommended. However, patient had marked improvement with PT today that rehab was no longer needed Outpatient PT script given Bradycardia This is not new Was evaluated by Cardiology team Lyme disease Lyme IgM was positive, IgG was negative Was initially on IV ceftriaxone Discussed with Cardiology team who confirmed no suspicion for lyme carditis Discharged on po doxycycline to complete treatment Ongoing tobacco/alcohol abuse -Counseled patient on need for cessation Total Time Total Time Spent Total Time Spent (In Minutes): 50 Total Time Includes: Examination of the Patient, Discharge Planning, Medication Reconciliation, Communication With Other Providers and Other (Updated friend/ex ) Discharge Plan Discharge Items Patient Disposition: Home - Self-Care Reason For Visit: BRADYCARDIA, CVA Discharge Diagnosis: Right Internal carotid artery dissection Seizure disorder Lyme disease Condition on Discharge: Fair Activity: Resume your previous activity Non-emergency contact: Primary Care Provider and Neurologist Call non-emergency contact if: you have any medication questions and your symptoms worsen Follow-up/Referrals: Mehnaz Bonilla MD [Outside Practitioners] - (Date & Time 06/05/2025 10:40 AM Provider: Mehnaz Bah MD Family Medicine [facility] ) Ursula Langley PA-C [Physician Plunger Shovel Operator] - (Date & Time 08/12/2025 12:30 PM Provider: Ursula Langley PA-C Neurology [facility] ) Diet: Heart Healthy Addtl Attending Provider Instructions: Mr Luz You were hospitalized and managed for the above listed diagnoses. You will need to follow up with Neurology in 3 months. Your Primary Doctor should arrange CT angiogram head and neck before that for reassessment. You were started on the following medications: - Aspirin and plavix for 3 months. Please continue this until advised otherwise by Neurology. - You were started on seizure medication Keppra 500mg twice a day - You were started on atorvastatin 40mg daily - You are being discharged on doxycycline for next 10 days to complete treatment for lyme's disease. Please do not drive until cleared by your Doctor or Neurologist Please ensure follow up with your Doctors as we discussed. It was a pleasure taking care of you Pending Studies at Discharge: No Stand-Alone Forms: My [facility], Smoking Cessation, Medications to Prevent Stroke Medications and DC Order Prescriptions: New doxycycline hyclate 100 mg Capsule 100 mg PO BID 10 Days Qty: 20 0RF atorvastatin 40 mg Tablet 40 mg PO QAM 90 Days Qty: 90 0RF levetiracetam [Keppra] 500 mg Tablet 500 mg PO BID 90 Days Qty: 180 0RF clopidogrel 75 mg Tablet 75 mg PO QAM 90 Days Qty: 90 0RF aspirin 81 mg Tablet,Delayed Release (Dr/Ec) 81 mg PO QAM 90 Days Qty: 90 0RF Continued albuterol sulfate [Ventolin HFA] 90 mcg/actuation HFA aerosol inhaler 1 - 2 puff INHALATION Q6 PRN (Reason: wheezing) Qty: 8.5 0RF Discharge Orders: Discharge Order (Routine); Ordered 05/08/25 Ordered By: Nery Green Admission Data Admit Date/Time: 05/06/25 22:41 Attending Provider: Nery Green I. Admit Provider: Ángel Ma Primary Care Provider: PCP,NO Other Providers: Ángel Ma; Krystyna Navarrete; Toni Weir; Yadiel Richardson; Tod Iglesias; José Manuel Khan; Robert Wagner; Amina Maguire; Alice Esquivel; Libia Avelar; Be Moscoso Ashley M.; Kayden Meade; Philip Hansen; Ayaka Means; Nova King; Peg Reina; Velma Escobar; Sebastian Dennis; Chandni Marie; Candace Coates; Link Mcdaniel; Dale Rosario; Libia Beach; Bin Meyers; Libia Ibarra; Mohan Chappell; Avinash Rendon; Alex Whiteside; Sanford Jordan; Ursula Langley; Lincoln Romano; Kleber Levin; Rachel Jimenez; Shelton Leon; Kellen Briones; Sanford Alves; Heather Ruiz; Yvonne Duckworth; Bharti Sawant; Damaso Campbell Other Interventions: Discharge Summary Assessment (RN) Last Done: 05/08/25 15:35
--- NOTE | 2025-05-08 15:13 | Pharmacy Report ---
- Date of Service May 08, 2025 - Pharmacy CVA/TIA Medication Review Medications to Prevent Stroke handout has been added to the patients discharge packet. Antiplatelet(s) * aspirin 81mg PO daily * clopidogrel 75mg PO daily * duration 3 months unless directed by Neurology Cholesterol * High intensity statin: atorvastatin 40mg DVT Prophylaxis * Heparin SQ Therapeutic Anticoagulation * No history of Afib/Aflutter noted Type 2 Diabetes * Patient does not have T2DM
[2025-05-08] MEDS: STROKE PATIENT DISCHARGE STA (15:30)
[2025-05-08 15:41] VITALS: PULSE 48
[2025-05-08] MEDS ORDERED: DOXYCYCLINE HYCLATE 100 MG CAP PO SCH (21:00)
--- NOTE | 2025-05-10 13:28 | Pharmacy Report ---
Pharmacist Stroke Counseling - Date of Service May 10, 2025 - Scope: Pharmacy has been consulted to provide medication discharge counseling for this patient admitted with ischemic stroke as per the Pharmacist Discharge Counseling for Stroke Patients Protocol. - Medications on Discharge: New Rx's Medication Instructions Recorded albuterol sulfate 90 mcg/actuation 1 - 2 puff inhalation Q6 PRN 05/08/25 aerosol inhaler (Ventolin HFA) wheezing #8.5 grams aspirin 81 mg tablet,delayed 81 mg PO QAM 90 days #90 tabs 05/08/25 release atorvastatin 40 mg tablet 40 mg PO QAM 90 days #90 tabs 05/08/25 clopidogrel 75 mg tablet 75 mg PO QAM 90 days #90 tabs 05/08/25 doxycycline hyclate 100 mg capsule 100 mg PO BID 10 days #20 caps 05/08/25 levetiracetam 500 mg tablet 500 mg PO BID 90 days #180 tabs 05/08/25 (Keppra) - Action: The above medications, specifically ones for stroke treatment/prophylaxis, have been reviewed in detail with the patient and/or patient healthcare representative(s) prior to discharge. This includes indication, common adverse reactions, drug interactions, and medication administration. Medication counseling has been employed using the teach-back method to ensure understanding. - Outcome: The patient and/or patient healthcare representative(s) have demonstrated understanding of the medications. Additional comments: - Confirmed that medications were picked up from pharmacy and he has begun to take them without issue - Medications reviewed, no questions from patient Thank you for allowing pharmacy to be involved in the care of this patient. Please call [phone] with any additional questions
== END 2025-05-08 15:54 | disposition home or self-care (01) | DRG 300 ==
LOC: ED 19:38 → SUATTDRO 22:41 → 2S 22:41